=== PATIENT | female | born 1965 | race Caucasian/White ===

== ENCOUNTER 2017-09-29 20:13 | Inpatient (IN) | payer SELFPAY ==
[~2017-09-29] VITALS: Ht 154.9 cm; Wt 90.4 kg
[2017-09-29 20:40] VITALS: BP 171/85; PULSE 85; RESP 18; TEMP 98.9; O2SAT 100
[2017-09-29 20:56] VITALS: BP 138/80; PULSE 93; RESP 15; O2SAT 98
[2017-09-29] MEDS ORDERED: SODIUM CHLOR 0.9% 1000 ML INJ 1,000 ML IV ONE (21:05)
--- NOTE | 2017-09-29 21:13 | PD ---
HPI Chief Complaint: Pain: Acute or Chronic Time Seen by Provider: 20:55 Travel History International Travel<30 days: No Contact w/Intl Traveler<30days: No History of Present Illness HPI 52y female presents to the ED c/o right nare numbness, right neck pain, low back pain and numbness of the right lower extremity. After further discussion, patient states that she was cleaning her house about 1 week ago and developed nausea, right-sided headache, mouth numbness, twitching of the eyes, right neck and right arm pain. She decided to wait for 1 week because she thought the symptoms are resolved but is concerned because she continues to have these symptoms. Says that her right-sided neck and right lower lumbar paraspinous muscle area are painful, worse with movement. Says that she has some radiation of pain down the back of her right thigh as well. She denies fever, chills, cough, congestion, runny nose, chest pain, shortness of breath, abdominal pain. She has a history of thalassemia and achalasia but does not follow primary care physician or any specialist. Says she has no history of cardiac, pulmonary issues. Denies history of CVA or TIA. PFSH Past Medical History Blood Disorders: Yes (Thalassemia) Diminished Hearing: No Musculoskeletal: Yes (Achalasia) Tetanus Vaccination: Unknown Influenza Vaccination: No ?: Not Tubal Ligation: Yes Past Surgical History Surgical History: No Previous Surgery Social History Alcohol Use: No Tobacco Use: No Substance Use: No Allergies-Medications (Allergen,Severity, Reaction): Coded Allergies: No Known Allergies (Unverified , 09/29/17) Reported Meds & Prescriptions Reported Meds & Active Scripts Active No Active Prescriptions or Reported Medications Review of Systems Except as stated in HPI: all other systems reviewed are Neg Physical Exam Narrative GENERAL: WD, WN in NAD SKIN: Focused skin assessment warm/dry. HEAD: Atraumatic. Normocephalic. EYES: Pupils equal and round. No scleral icterus. No injection or drainage. ENT: No nasal bleeding or discharge. Mucous membranes pink and moist. NECK: Trachea midline. No JVD. CARDIOVASCULAR: Regular rate and rhythm. No murmur appreciated. RESPIRATORY: No accessory muscle use. Clear to auscultation. Breath sounds equal bilaterally. GASTROINTESTINAL: Abdomen soft, non-tender, nondistended. Hepatic and splenic margins not palpable. MUSCULOSKELETAL: No obvious deformities. No clubbing. No cyanosis. No edema. Right trapezius- TTP to musculature, TTP to right lumbar paraspinous muscles. No TTP to RLE. NEUROLOGICAL: Awake and alert. No obvious cranial nerve deficits. Motor grossly within normal limits, grade 5/5 upper and lower extremity strength. Normal speech. No pronator drift. PSYCHIATRIC: Appropriate mood and affect; insight and judgment normal. Data Data Last Documented VS Vital Signs Date Time Temp Pulse Resp B/P (MAP) Pulse Ox O2 Delivery O2 Flow Rate FiO2 09/29/17 21:43 98 Room Air 09/29/17 20:56 93 15 09/29/17 20:40 98.9 Orders Orders Complete Blood Count With Diff (09/29/17 21:05) Comprehensive Metabolic Panel (09/29/17 21:05) Prothrombin Time / Inr (Pt) (09/29/17 21:05) Act Partial Throm Time (Ptt) (09/29/17 21:05) Ct Brain W/O Iv Contrast(Rout) (09/29/17 21:05) Ecg Monitoring (09/29/17 21:05) Iv Access Insert/Monitor (09/29/17 21:05) Oximetry (09/29/17 21:05) Sodium Chloride 0.9% Flush (Ns Flush) (09/29/17 21:15) Ketorolac Inj (Toradol Inj) (09/29/17 21:15) Ondansetron Inj (Zofran Inj) (09/29/17 21:15) Sodium Chlor 0.9% 1000 Ml Inj (Ns 1000 M (09/29/17 21:05) Chest, Single Ap (09/29/17 ) Orphenadrine Inj (Norflex Inj) (09/29/17 21:15) Ondansetron Inj (Zofran Inj) (09/29/17 22:00) Ketorolac Inj (Toradol Inj) (09/29/17 22:00) Ct Thorax/ Chest W Iv Contrast (09/29/17 ) Admit Order (Ed Use Only) (09/29/17 23:53) Labs Laboratory Tests Test 09/29/17 21:41 White Blood Count 6.9 TH/MM3 Red Blood Count 5.28 MIL/MM3 Hemoglobin 11.9 GM/DL Hematocrit 38.7 % Mean Corpuscular Volume 73.3 FL Mean Corpuscular Hemoglobin 22.6 PG Mean Corpuscular Hemoglobin Concent 30.9 % Red Cell Distribution Width 14.0 % Platelet Count 223 TH/MM3 Mean Platelet Volume 9.5 FL Neutrophils (%) (Auto) 51.7 % Lymphocytes (%) (Auto) 32.9 % Monocytes (%) (Auto) 10.2 % Eosinophils (%) (Auto) 4.4 % Basophils (%) (Auto) 0.8 % Neutrophils # (Auto) 3.6 TH/MM3 Lymphocytes # (Auto) 2.3 TH/MM3 Monocytes # (Auto) 0.7 TH/MM3 Eosinophils # (Auto) 0.3 TH/MM3 Basophils # (Auto) 0.1 TH/MM3 CBC Comment DIFF FINAL Differential Comment Prothrombin Time 11.6 SEC Prothromb Time International Ratio 1.1 RATIO Activated Partial Thromboplast Time 26.3 SEC Blood Urea Nitrogen 13 MG/DL Creatinine 0.94 MG/DL Random Glucose 87 MG/DL Total Protein 7.2 GM/DL Albumin 3.4 GM/DL Calcium Level 8.8 MG/DL Alkaline Phosphatase 84 U/L Aspartate Amino Transf (AST/SGOT) 24 U/L Alanine Aminotransferase (ALT/SGPT) 26 U/L Total Bilirubin 0.2 MG/DL Sodium Level 141 MEQ/L Potassium Level 4.2 MEQ/L Chloride Level 108 MEQ/L Carbon Dioxide Level 25.8 MEQ/L Anion Gap 7 MEQ/L Estimat Glomerular Filtration Rate 63 ML/MIN MDM Medical Decision Making Medical Screen Exam Complete: Yes Emergency Medical Condition: Yes Differential Diagnosis TIA, CVA, sinusitis, muscle spasms, rhinorrhea Narrative Course 52y female presents to the ED c/o right nare numbness, right neck pain, low back pain and numbness of the right lower extremity. After further discussion, patient states that she was cleaning her house about 1 week ago and developed nausea, right-sided headache, mouth numbness, twitching of the eyes, right neck and right arm pain. She decided to wait for 1 week because she thought the symptoms are resolved but is concerned because she continues to have these symptoms. Says that her right-sided neck and right lower lumbar paraspinous muscle area are painful, worse with movement. Says that she has some radiation of pain down the back of her right thigh as well. She denies fever, chills, cough, congestion, runny nose, chest pain, shortness of breath, abdominal pain. She has a history of thalassemia and achalasia but does not follow primary care physician or any specialist. Says she has no history of cardiac, pulmonary issues. Denies history of CVA or TIA. Vital signs are stable. Physical exam findings most consistent with muscle spasms to the right cervical paraspinous muscles and right lumbar paraspinous muscles. No neuro deficits. Grade 5/5 upper lower extremity strength. Cranial nerves II through XII grossly intact. Patient given Toradol, Norflex and Zofran for apparent muscle spasms. Says her pain is improved. CT brain ordered as patient was complaining of some unusual numbness although bilateral. There is no acute process. There was an abnormal finding on the chest x-ray. Ordered CT of the chest with IV contrast. CT pending as of transfer care to Dr. Murphy. Please see his note for further discussion and disposal. Diagnosis Primary Impression: Muscle spasm Scripts No Active Prescriptions or Reported Meds Condition: Stable Bethany Khan Sep 29, 2017 21:13
[2017-09-29] MEDS ORDERED: ONDANSETRON HCL 4 MG/2 ML VIAL IM ONE (21:15)
[2017-09-29] MEDS ORDERED: KETOROLAC TROMETHAMINE 60 MG/2 ML (IM) VIAL IM ONE (21:15)
[2017-09-29] MEDS ORDERED: ORPHENADRINE INJ 60 MG/2 ML AMP IM ONE (21:15)
[2017-09-29] MEDS ORDERED: SODIUM CHLORIDE 0.9% FLUSH 10 ML FLUSH IVF PRN (21:15)
--- NOTE | 2017-09-29 21:31 | RADRPT ---
EXAM DATE/TIME: 09/29/2017 21:17 [facility] COMPARISON: No previous studies available for comparison. INDICATIONS : Right side facial twitching and numbness with headache. RADIATION DOSE: 40.17 CTDIvol (mGy) MEDICAL HISTORY : None SURGICAL HISTORY : None. ENCOUNTER: Initial ACUITY: 1 day PAIN SCALE: 5/10 LOCATION: cranial TECHNIQUE: Multiple contiguous axial images were obtained of the head. Using automated exposure control and adj ustment of the mA and/or kV according to patient size, radiation dose was kept as low as reasonably a chievable to obtain optimal diagnostic quality images. DICOM format image data is available electro nically for review and comparison. FINDINGS: CEREBRUM: The ventricles are normal for age. No evidence of midline shift, mass lesion, hemorrhage or acute in farction. No extra-axial fluid collections are seen. POSTERIOR FOSSA: The cerebellum and brainstem are intact. The 4th ventricle is midline. The cerebellopontine angle i s unremarkable. EXTRACRANIAL: There is mucoperiosteal thickening of the visualized ethmoid and maxillary sinuses, right much worse than left. SKULL: The calvaria is intact. No evidence of skull fracture. CONCLUSION: 1. No acute intracranial abnormality. 2. Right side predominant paranasal sinus disease. Thierry Bui MD on September 29, 2017 at 21:27 Board Certified Radiologist. This report was verified electronically.
--- NOTE | 2017-09-29 21:41 | RADRPT ---
EXAM DATE/TIME: 09/29/2017 21:20 [facility] COMPARISON: No previous studies available for comparison. INDICATIONS : Cough. MEDICAL HISTORY : None. SURGICAL HISTORY : None. ENCOUNTER: Initial ACUITY: 1 day PAIN SCORE: 0/10 LOCATION: Bilateral chest FINDINGS: Right perihilar mass like opacity measuring at least 13 cm in size noted. There is an apparent azygou s fissure. Left lung is clear. No pleural effusion or pneumothorax on either side. Heart size within normal limits. CONCLUSION: Large mass or area of consolidation on the right. CT of the chest is recommended, preferably with int ravenous contrast. Thierry Bui MD on September 29, 2017 at 21:37 Board Certified Radiologist. This report was verified electronically.
[2017-09-29 21:43] VITALS: O2SAT 98
[2017-09-29] MEDS ORDERED: KETOROLAC TROMETHAMINE 30 MG/ML (IVP) VIAL IV PUSH ONE (22:00)
[2017-09-29] MEDS ORDERED: ONDANSETRON HCL 4 MG/2 ML VIAL IV PUSH ONE (22:00)
[2017-09-29] MEDS ORDERED: IOHEXOL 350 MG/ML 10 ML VIAL (for RAD DIAG) IVCONTRAST ONE (22:10)
[2017-09-29 22:12] LABS: AUTOMATED NEUTROPHIL # 3.6 TH/MM3 (1.8-7.7); BASOPHIL # 0.1 TH/MM3 (0-0.2); BASOPHIL % 0.8 % (0.0-2.0); EOSINOPHIL # 0.3 TH/MM3 (0-0.4); EOSINOPHIL % 4.4 % (0.0-4.0); HEMATOCRIT 38.7 % (35.0-46.0); HEMOGLOBIN 11.9 GM/DL (11.6-15.3); LYMPH % 32.9 % (9.0-44.0); LYMPHOCYTE # 2.3 TH/MM3 (1.0-4.8); MEAN CELL VOLUME 73.3 FL (80.0-100.0); MEAN CORPUSCULAR HEMOGLOBIN 22.6 PG (27.0-34.0); MEAN CORPUSCULAR HGB CONC 30.9 % (32.0-36.0); MEAN PLATELET VOLUME 9.5 FL (7.0-11.0); MONO % 10.2 % (0.0-8.0); MONOCYTE # 0.7 TH/MM3 (0-0.9); NEUT % 51.7 % (16.0-70.0); PLATELET COUNT 223 TH/MM3 (150-450); RED BLOOD COUNT 5.28 MIL/MM3 (4.00-5.30); WHITE BLOOD COUNT 6.9 TH/MM3 (4.0-11.0)
[2017-09-29 22:24] LABS: INTERNATIONAL NORMALIZED RATIO 1.1 RATIO; PROTHROMBIN TIME - PATIENT 11.6 SEC (9.8-11.6)
[2017-09-29 22:33] LABS: ALKALINE PHOSPHATASE 84 U/L (45-117); TOTAL BILIRUBIN ADULT 0.2 MG/DL (0.2-1.0); TOTAL PROTEIN 7.2 GM/DL (6.4-8.2)
[2017-09-29 22:35] LABS: ALBUMIN 3.4 GM/DL (3.4-5.0); ALT (GPT) 26 U/L (10-53); AST (GOT) 24 U/L (15-37); BICARBONATE 25.8 MEQ/L (21.0-32.0); BLOOD UREA NITROGEN 13 MG/DL (7-18); CALCIUM 8.8 MG/DL (8.5-10.1); CHLORIDE 108 MEQ/L (98-107); CREATININE 0.94 MG/DL (0.50-1.00); GLOMERULAR FILTRATION RATE 63 ML/MIN (>89); GLUCOSE,RANDOM 87 MG/DL (74-106); SODIUM (NA) 141 MEQ/L (136-145)
--- NOTE | 2017-09-29 23:20 | PD ---
Physical Exam Date Seen by Provider: Sep 29, 2017 Time Seen by Provider: 23:18 Narrative The patient is a 52-year-old female was initially evaluated by the mid-level provider. Please refer to the initial history, physical, diagnostic evaluation , and treatment modality plan. Data Data Last Documented VS Vital Signs Date Time Temp Pulse Resp B/P (MAP) Pulse Ox O2 Delivery O2 Flow Rate FiO2 09/29/17 21:43 98 Room Air 09/29/17 20:56 93 15 09/29/17 20:40 98.9 Orders Orders Complete Blood Count With Diff (09/29/17 21:05) Comprehensive Metabolic Panel (09/29/17 21:05) Prothrombin Time / Inr (Pt) (09/29/17 21:05) Act Partial Throm Time (Ptt) (09/29/17 21:05) Ct Brain W/O Iv Contrast(Rout) (09/29/17 21:05) Ecg Monitoring (09/29/17 21:05) Iv Access Insert/Monitor (09/29/17 21:05) Oximetry (09/29/17 21:05) Sodium Chloride 0.9% Flush (Ns Flush) (09/29/17 21:15) Ketorolac Inj (Toradol Inj) (09/29/17 21:15) Ondansetron Inj (Zofran Inj) (09/29/17 21:15) Sodium Chlor 0.9% 1000 Ml Inj (Ns 1000 M (09/29/17 21:05) Chest, Single Ap (09/29/17 ) Orphenadrine Inj (Norflex Inj) (09/29/17 21:15) Ondansetron Inj (Zofran Inj) (09/29/17 22:00) Ketorolac Inj (Toradol Inj) (09/29/17 22:00) Ct Thorax/ Chest W Iv Contrast (09/29/17 ) Admit Order (Ed Use Only) (09/29/17 23:53) Labs Laboratory Tests Test 09/29/17 21:41 White Blood Count 6.9 TH/MM3 Red Blood Count 5.28 MIL/MM3 Hemoglobin 11.9 GM/DL Hematocrit 38.7 % Mean Corpuscular Volume 73.3 FL Mean Corpuscular Hemoglobin 22.6 PG Mean Corpuscular Hemoglobin Concent 30.9 % Red Cell Distribution Width 14.0 % Platelet Count 223 TH/MM3 Mean Platelet Volume 9.5 FL Neutrophils (%) (Auto) 51.7 % Lymphocytes (%) (Auto) 32.9 % Monocytes (%) (Auto) 10.2 % Eosinophils (%) (Auto) 4.4 % Basophils (%) (Auto) 0.8 % Neutrophils # (Auto) 3.6 TH/MM3 Lymphocytes # (Auto) 2.3 TH/MM3 Monocytes # (Auto) 0.7 TH/MM3 Eosinophils # (Auto) 0.3 TH/MM3 Basophils # (Auto) 0.1 TH/MM3 CBC Comment DIFF FINAL Differential Comment Prothrombin Time 11.6 SEC Prothromb Time International Ratio 1.1 RATIO Activated Partial Thromboplast Time 26.3 SEC Blood Urea Nitrogen 13 MG/DL Creatinine 0.94 MG/DL Random Glucose 87 MG/DL Total Protein 7.2 GM/DL Albumin 3.4 GM/DL Calcium Level 8.8 MG/DL Alkaline Phosphatase 84 U/L Aspartate Amino Transf (AST/SGOT) 24 U/L Alanine Aminotransferase (ALT/SGPT) 26 U/L Total Bilirubin 0.2 MG/DL Sodium Level 141 MEQ/L Potassium Level 4.2 MEQ/L Chloride Level 108 MEQ/L Carbon Dioxide Level 25.8 MEQ/L Anion Gap 7 MEQ/L Estimat Glomerular Filtration Rate 63 ML/MIN [facility] Medical Record Reviewed: Yes Supervised Visit with RAY: Yes Interpretation(s) Laboratory Tests Test 09/29/17 21:41 White Blood Count 6.9 TH/MM3 Red Blood Count 5.28 MIL/MM3 Hemoglobin 11.9 GM/DL Hematocrit 38.7 % Mean Corpuscular Volume 73.3 FL Mean Corpuscular Hemoglobin 22.6 PG Mean Corpuscular Hemoglobin Concent 30.9 % Red Cell Distribution Width 14.0 % Platelet Count 223 TH/MM3 Mean Platelet Volume 9.5 FL Neutrophils (%) (Auto) 51.7 % Lymphocytes (%) (Auto) 32.9 % Monocytes (%) (Auto) 10.2 % Eosinophils (%) (Auto) 4.4 % Basophils (%) (Auto) 0.8 % Neutrophils # (Auto) 3.6 TH/MM3 Lymphocytes # (Auto) 2.3 TH/MM3 Monocytes # (Auto) 0.7 TH/MM3 Eosinophils # (Auto) 0.3 TH/MM3 Basophils # (Auto) 0.1 TH/MM3 CBC Comment DIFF FINAL Differential Comment Prothrombin Time 11.6 SEC Prothromb Time International Ratio 1.1 RATIO Activated Partial Thromboplast Time 26.3 SEC Blood Urea Nitrogen 13 MG/DL Creatinine 0.94 MG/DL Random Glucose 87 MG/DL Total Protein 7.2 GM/DL Albumin 3.4 GM/DL Calcium Level 8.8 MG/DL Alkaline Phosphatase 84 U/L Aspartate Amino Transf (AST/SGOT) 24 U/L Alanine Aminotransferase (ALT/SGPT) 26 U/L Total Bilirubin 0.2 MG/DL Sodium Level 141 MEQ/L Potassium Level 4.2 MEQ/L Chloride Level 108 MEQ/L Carbon Dioxide Level 25.8 MEQ/L Anion Gap 7 MEQ/L Estimat Glomerular Filtration Rate 63 ML/MIN Last Impressions Head CT 09/29/172104 Signed Impressions: Service Date/Time: Friday, September 29, 2017 21:17 - CONCLUSION: 1. No acute intracranial abnormality. 2. Right side predominant paranasal sinus disease. Thierry Bui MD Chest X-Ray 09/29/17 0000 Signed Impressions: Service Date/Time: Friday, September 29, 2017 21:20 - CONCLUSION: Large mass or area of consolidation on the right. CT of the chest is recommended, preferably with intravenous contrast. Thierry Bui MD CT of the thorax reveals large hollow structure in the posterior mediastinum and medial right chest containing a mixture of gas and particulate matter probably representing a markedly distended esophagus. Possible mass at the level of the GE junction. Differential Diagnosis Differential diagnosis includes muscle spasm, hypocalcemia, hypercalcemia, hypokalemia, aerosol cleaning side effect, CVA, TIA, intracranial hemorrhage. Narrative Course The patient was initially labeled by the mid-level provider. Please refer to the initial history, physical, diagnostic evaluation, treatment modality plan. The patient was signed out at [address] of the thorax pending for questionable abnormality on chest x-ray concerning a possible mass in the right side of the chest. CT the brain was negative for any acute intracranial abnormalities, sinus disease was noted. Electrolyte evaluation is unremarkable. CT of the thorax reveals markedly distended esophagus with questionable GE mass , worrisome for possible obstruction. 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 She does complain of right- sided jaw and neck pain that radiates down the right lateral aspect of the back. She did have nausea and vomiting earlier today. She does note increasing difficulty swallowing foods, feels like there is food getting stuck in her throat. Therefore, patient will be 23 hour observation to medicine and may benefit from evaluation by gastroenterology for possible endoscopy. Physician Communication Physician Communication I discussed the patient with Dr. Hdz who agrees with 23 hour observation. Diagnosis Primary Impression: Obstruction of esophagus Admitting Information Admitting Physician Requests: Observation Scripts No Active Prescriptions or Reported Meds Condition: Stable Brock Murphy MD Sep 29, 2017 23:20
--- NOTE | 2017-09-29 23:39 | RADRPT ---
EXAM DATE/TIME: 09/29/2017 23:02 [facility] COMPARISON: CHEST SINGLE AP, September 29, 2017, 21:20. INDICATIONS : Abnormal chest x-ray. IV CONTRAST: 72 cc Omnipaque 350 (iohexol) IV RADIATION DOSE: 8.23 CTDIvol (mGy) MEDICAL HISTORY : None SURGICAL HISTORY : Tubal ligation. ENCOUNTER: Initial ACUITY: 1 day PAIN SCALE: 0/10 LOCATION: chest TECHNIQUE: Volumetric scanning of the chest was performed. Using automated exposure control and adjustment of t he mA and/or kV according to patient size, radiation dose was kept as low as reasonably achievable to obtain optimal diagnostic quality images. DICOM format image data is available electronically for review and comparison. Follow-up recommendations for detected pulmonary nodules are based at a minimum on nodule size and pa tient risk factors according to Fleischner Society Guidelines. FINDINGS: The examination was performed to characterize a large masslike opacity is seen in the right medial he mithorax on chest x-ray. There is a viscus structure which extends from the midline clavicular regio n down to the level of the GE junction which measures 19 cm in superior/inferior extent and 10.3 cm i n length. There is a mixture of gas and particulate matter within the lumen of this structure. The location and course suggests that this represents a markedly distended esophagus. The stomach appear s to be an orthotopic position. The region of the GE junction does not contain gas and cannot exclud e a mass in the region of the GE junction. The lungs are clear. No evidence of atelectasis. No evidence of mediastinal or hilar adenopathy. T he osseous structures are intact. CONCLUSION: Large hollow structure in the posterior mediastinum and medial right chest containing a mixture of ga s and particulate matter probably representing a markedly distended esophagus. Possible mass at the level of the GE junction. Speedy Baker MD on September 29, 2017 at 23:31 Board Certified Radiologist. This report was verified electronically.
[2017-09-30] VITALS (12 sets, daily range): BP systolic 106–140; BP diastolic 55–75; PULSE 59–78; RESP 12–18; TEMP 97.6–99.1; O2SAT 94–100
[2017-09-30] MEDS ORDERED: SODIUM CHLORIDE 0.9% FLUSH 10 ML FLUSH IV FLUSH PRN
[2017-09-30] MEDS ORDERED: MAGNESIUM HYDROXIDE SUSP 30 ML CUP PO PRN
[2017-09-30] MEDS ORDERED: MORPHINE SULFATE 2 MG/ML SYRINGE IV PUSH PRN ×2
[2017-09-30] MEDS ORDERED: LACTULOSE SYRUP 20 GM/30 ML CUP PO PRN
[2017-09-30] MEDS ORDERED: BISACODYL 10 MG SUPP RECTAL PRN
[2017-09-30] MEDS ORDERED: SENNOSIDES 8.6 MG TAB PO PRN
--- NOTE | 2017-09-30 01:13 | HHI.HP ---
[facility] No Primary Care Physician Admission Diagnosis Possible esophageal obstruction versus GE mass Diagnoses: (1) Esophageal dilatation Diagnosis: Principal (2) Intractable nausea and vomiting Diagnosis: Principal (3) HTN (hypertension) Diagnosis: Principal Travel History International Travel<30 Days: No Contact w/Intl Traveler <30 Da: No History of Present Illness This is a 52-year-old female with a PMH of Thalassemia and Achalasia who presented to ER with complaints of right-sided neck pain and right-sided chest wall pain for approx 1wk. Also notes associated nausea/vomiting. States she has been doing some house cleaning and thinks she may have inhaled chemicals which caused her nausea/vomiting. Pain has been intermittent, moderate to severe, 6-7/10, occasional radiation to back. Denies fever, chills, chest pain or SOB. On arrival, BP 171/85, HR 85, O2 sat 100% on RA, Afebrile. CBC essentially unremarkable. Chemistry unremarkable except for GFR 63. INR 1.1. CT Head with no acute findings. CXR with large mass or area of consolidation on the right, recommendation for CT. CT Chest with large hollow structure in posterior mediastinum and medial right chest containing mixture of gas and particulate matter probably representing markedly distended esophagus, possible mass at level of GE junction. Reports no h/o similar findings. States she has previous h/o achalasia, however no intervention. Does not follow w/ GI doc. Review of Systems Except as stated in HPI: all other systems reviewed are Neg ROS: 14 point review of systems otherwise negative. Past Family Social History Past Medical History PMH: Thalassemia and Achalasia Past Surgical History PAST SURGICAL HISTORY: None Allergies: Coded Allergies: No Known Allergies (Unverified , 09/29/17) Family History PAST FAMILY HISTORY: Reviewed. No h/o DM or CAD Social History PAST SOCIAL HISTORY: Negative for alcohol, tobacco or drugs Physical Exam Vital Signs Vital Signs Date Time Temp Pulse Resp B/P (MAP) Pulse Ox O2 Delivery O2 Flow Rate FiO2 09/30/17 00:28 78 18 140/67 (91) 98 Room Air 09/29/17 21:43 98 Room Air 09/29/17 20:56 93 15 138/80 (99) 98 Room Air 09/29/17 20:40 98.9 85 18 171/85 (113) 100 Physical Exam PE: GENERAL: Very pleasant middle-aged female in no acute distress. HEENT: PERRLA, EOMI. No scleral icterus or conjunctival pallor. No lid lag or facial droop. CARDIOVASCULAR: Regular rate and rhythm. No obvious murmurs to auscultation. No chest tenderness to palpation. RESPIRATORY: No obvious rhonchi or wheezing. Clear to auscultation. Breath sounds equal bilaterally. GASTROINTESTINAL: Abdomen soft, non-tender, nondistended. BS normal. MUSCULOSKELETAL: Extremities without clubbing, cyanosis, or edema. No obvious deformities. NEUROLOGICAL: Awake, alert and oriented x4. No focal neurologic deficits. Moving both upper and lower extremities spontaneously. Laboratory Laboratory Tests Test 09/29/17 21:41 White Blood Count 6.9 Red Blood Count 5.28 Hemoglobin 11.9 Hematocrit 38.7 Mean Corpuscular Volume 73.3 Mean Corpuscular Hemoglobin 22.6 Mean Corpuscular Hemoglobin Concent 30.9 Red Cell Distribution Width 14.0 Platelet Count 223 Mean Platelet Volume 9.5 Neutrophils (%) (Auto) 51.7 Lymphocytes (%) (Auto) 32.9 Monocytes (%) (Auto) 10.2 Eosinophils (%) (Auto) 4.4 Basophils (%) (Auto) 0.8 Neutrophils # (Auto) 3.6 Lymphocytes # (Auto) 2.3 Monocytes # (Auto) 0.7 Eosinophils # (Auto) 0.3 Basophils # (Auto) 0.1 CBC Comment DIFF FINAL Differential Comment Prothrombin Time 11.6 Prothromb Time International Ratio 1.1 Activated Partial Thromboplast Time 26.3 Blood Urea Nitrogen 13 Creatinine 0.94 Random Glucose 87 Total Protein 7.2 Albumin 3.4 Calcium Level 8.8 Alkaline Phosphatase 84 Aspartate Amino Transf (AST/SGOT) 24 Alanine Aminotransferase (ALT/SGPT) 26 Total Bilirubin 0.2 Sodium Level 141 Potassium Level 4.2 Chloride Level 108 Carbon Dioxide Level 25.8 Anion Gap 7 Estimat Glomerular Filtration Rate 63 Result Diagram: 09/29/17214009/29/172140 Caprini VTE Risk Assessment Caprini VTE Risk Assessment: No/Low Risk (score <= 1) Caprini Risk Assessment Model Point Value = 1 Point Value = 2 Point Value = 3 Point Value = 5 Age 41-60 Minor surgery BMI > 25 kg/m2 Swollen legs Varicose veins or History of unexplained or recurrent spontaneous Oral contraceptives or hormone replacement Sepsis (< 1 month) Serious lung disease, including pneumonia (< 1 month) Abnormal pulmonary function Acute myocardial infarction Congestive heart failure (< 1 month) History of inflammatory bowel disease Medical patient at bed rest Age 61-74 Arthroscopic surgery Major open surgery (> 45 min) Laparoscopic surgery (> 45 min) Malignancy Confined to bed (> 72 hours) Immobilizing plaster cast Central venous access Age >= 75 History of VTE Family history of VTE Factor V Leiden Prothrombin [id number] Lupus anticoagulant Anticardiolipin antibodies Elevated serum homocysteine Heparin-induced thrombocytopenia Other congenital or acquired thrombophilia Stroke (< 1 month) Elective arthroplasty Hip, pelvis, or leg fracture Acute spinal cord injury (< 1 month) Prophylaxis Regimen Total Risk Factor Score Risk Level Prophylaxis Regimen 0-1 Low Early ambulation 2 Moderate Order ONE of the following: *Sequential Compression Device (SCD) *Heparin 5000 units SQ BID 3-4 Higher Order ONE of the following medications: *Heparin 5000 units SQ TID *Enoxaparin/Lovenox 40 mg SQ daily (WT < 150 kg, CrCl > 30 mL/min) *Enoxaparin/Lovenox 30 mg SQ daily (WT < 150 kg, CrCl > 10-29 mL/min) *Enoxaparin/Lovenox 30 mg SQ BID (WT < 150 kg, CrCl > 30 mL/min) AND/OR *Sequential Compression Device (SCD) 5 or more Highest Order ONE of the following medications: *Heparin 5000 units SQ TID (Preferred with Epidurals) *Enoxaparin/Lovenox 40 mg SQ daily (WT < 150 kg, CrCl > 30 mL/min) *Enoxaparin/Lovenox 30 mg SQ daily (WT < 150 kg, CrCl > 10-29 mL/min) *Enoxaparin/Lovenox 30 mg SQ BID (WT < 150 kg, CrCl > 30 mL/min) AND *Sequential Compression Device (SCD) Assessment and Plan Problem List: (1) Esophageal dilatation ICD Code: K22.8 - Other specified diseases of esophagus (2) Intractable nausea and vomiting ICD Code: R11.2 - Nausea with vomiting, unspecified (3) HTN (hypertension) ICD Code: I10 - Essential (primary) hypertension Assessment and Plan A/P: 1. Esophageal Dilatation: c/o right-sided neck/chest wall pain w/ associated nausea, vomiting. CT Chest w/ large hollow structure in posterior mediastinum and medial right chest containing gas/particulate matter w/ markedly distended esophagus, possible mass at GE Junction, images reviewed by me. NPO, IVF, consult GI for further evaluation/EGD. 2. Intractable NV: secondary to above, continue analgesics/antiemetics as needed. IVF. 3. HTN: BP 170's on arrival, likely compounded by pain complaints, will monitor, antihypertensives as needed for BP >180 4. DVT Prophylaxis: SCD/Teds 5. Social work for d/c planning as needed. 6. Case discussed w/ ER physician at length, labs/records/imaging reviewed by me Karla Hdz MD Sep 30, 2017 01:13
[2017-09-30] MEDS: SODIUM CHLOR 0.9% 1000 ML INJ 1,000 ML IV SCH ×3 (02:04→23:53)
[2017-09-30 08:39] LABS: AUTOMATED NEUTROPHIL # 2.5 TH/MM3 (1.8-7.7); BASOPHIL # 0.1 TH/MM3 (0-0.2); EOSINOPHIL # 0.3 TH/MM3 (0-0.4); EOSINOPHIL % 5.5 % (0.0-4.0); HEMATOCRIT 37.2 % (35.0-46.0); HEMOGLOBIN 11.5 GM/DL (11.6-15.3); LYMPH % 30.7 % (9.0-44.0); LYMPHOCYTE # 1.5 TH/MM3 (1.0-4.8); MEAN CORPUSCULAR HEMOGLOBIN 22.8 PG (27.0-34.0); MEAN CORPUSCULAR HGB CONC 30.9 % (32.0-36.0); MEAN PLATELET VOLUME 9.6 FL (7.0-11.0); MONO % 11.7 % (0.0-8.0); MONOCYTE # 0.6 TH/MM3 (0-0.9); NEUT % 51.1 % (16.0-70.0); PLATELET COUNT 211 TH/MM3 (150-450); RED BLOOD COUNT 5.03 MIL/MM3 (4.00-5.30); RED CELL DISTRIBUTION WIDTH 14.1 % (11.6-17.2); WHITE BLOOD COUNT 4.9 TH/MM3 (4.0-11.0)
[2017-09-30] MEDS: SODIUM CHLORIDE 0.9% FLUSH 10 ML FLUSH IV FLUSH SCH ×2 (09:00→20:16)
[2017-09-30 09:18] LABS: ALBUMIN 2.9 GM/DL (3.4-5.0); ALKALINE PHOSPHATASE 73 U/L (45-117); ALT (GPT) 25 U/L (10-53); AST (GOT) 18 U/L (15-37); BICARBONATE 26.2 MEQ/L (21.0-32.0); BLOOD UREA NITROGEN 14 MG/DL (7-18); CHLORIDE 112 MEQ/L (98-107); CREATININE 0.82 MG/DL (0.50-1.00); GLOMERULAR FILTRATION RATE 73 ML/MIN (>89); GLUCOSE,RANDOM 96 MG/DL (74-106); SODIUM (NA) 144 MEQ/L (136-145); TOTAL BILIRUBIN ADULT 0.2 MG/DL (0.2-1.0); TOTAL PROTEIN 6.3 GM/DL (6.4-8.2)
[2017-09-30] MEDS: DOCUSATE SODIUM 50 MG/SENNA 8.6 MG TAB PO SCH ×2 (10:37→19:56)
[2017-09-30] MEDS ORDERED: traMADol HCL 50 MG TAB PO PRN (11:15)
[2017-09-30] MEDS ORDERED: ACETAMINOPHEN 325 MG TAB PO PRN (11:15)
[2017-09-30] MEDS ORDERED: CHLORHEXIDINE GLUCONATE 2 % 1 PACK (2 CLOTHS) TOPICAL PRN (11:30)
[2017-09-30] MEDS ORDERED: INSULIN HUMAN REGULAR 1,000 UNITS/10 ML VIAL SQ PRN (11:30)
[2017-09-30] MEDS ORDERED: SODIUM CHLORID 0.9% 500 ML IV PRN (11:30)
[2017-09-30] MEDS ORDERED: METOPROLOL TARTRATE 25 MG TAB PO PRN (11:30)
[2017-09-30] MEDS ORDERED: LACTATED RINGER'S 1000 ML IV PRN (11:30)
[2017-09-30] MEDS ORDERED: POVIDONE IODINE 5% (ANTISEPSIS KIT) 4 APPLICATIONS EACH NARE PRN (11:30)
--- NOTE | 2017-09-30 11:33 | HHI.PR ---
Subjective Remarks Follow up on patient with N/V, right sided facial numbness, right sided neck pain. Patient reports cleaning with chemicals this past weekend after moving into a new place and had several episodes of nausea, vomiting and right sided facial numbness/tingling. She denies any facial droop or slurred speech. She endorses right sided headache and right sided neck pain radiating down the right side of her back into the right leg. She reports tingling in the right upper extremity. She denies any vision changes but does report noticing significant swelling in the right eye Monday night that has since resolved. She denies having any difficulty closing the right eye. She continues to have decreased sensation on the right side of her face with tingling but reports it is improving. She reports 30yr hx of vomiting after meals due to dilated esophagus and states the N/V she had over the weekend was different. She denies any weakness in the arms or legs. She denies any bladder or bowel difficulties. She denies any recent illness, fever or chills. She denies any chest pain, palpitations, diaphoresis, abdominal pain, syncope/near syncope or shortness of breath. Objective Vitals Vital Signs Date Time Temp Pulse Resp B/P (MAP) Pulse Ox O2 Delivery O2 Flow Rate FiO2 09/30/17 08:00 97.6 61 16 121/75 (90) 95 09/30/17 04:24 98.2 61 17 106/59 (75) 95 09/30/17 01:16 98.3 71 18 110/55 (73) 94 09/30/17 01:03 09/30/17 00:28 78 18 140/67 (91) 98 Room Air 09/29/17 21:43 98 Room Air 09/29/17 20:56 93 15 138/80 (99) 98 Room Air 09/29/17 20:40 98.9 85 18 171/85 (113) 100 Result Diagram: 09/30/17 0745 09/30/17 0745 Imaging Last Impressions Head CT 09/29/176 Signed Impressions: Service Date/Time: Friday, September 29, 2017 21:17 - CONCLUSION: 1. No acute intracranial abnormality. 2. Right side predominant paranasal sinus disease. Thierry Bui MD Chest X-Ray 09/29/17 0000 Signed Impressions: Service Date/Time: Friday, September 29, 2017 21:20 - CONCLUSION: Large mass or area of consolidation on the right. CT of the chest is recommended, preferably with intravenous contrast. Thierry Bui MD Chest CT 09/29/17 0000 Signed Impressions: Service Date/Time: Friday, September 29, 2017 23:02 - CONCLUSION: Large hollow structure in the posterior mediastinum and medial right chest containing a mixture of gas and particulate matter probably representing a markedly distended esophagus. Possible mass at the level of the GE junction. Speedy Baker MD Objective Remarks GENERAL: Well-developed well-nourished male patient, in no acute distress. Awake and alert. Sitting up in hospital bed. Appears comfortable. SKIN: Warm and dry. HEAD: Atraumatic. Normocephalic. No temporal or scalp tenderness. No facial droop/asymmetry appreciated. EYES: Pupils equal round and reactive. Extraocular motions intact. No scleral icterus. No injection or drainage. No lid lag. ENT: Nose without bleeding or purulent drainage. Airway patent. MMM. No tenderness to palpation frontal or maxillary sinuses. NECK: Trachea midline. CARDIOVASCULAR: Regular rate and rhythm without murmurs, gallops, or rubs. RESPIRATORY: Clear to auscultation. Breath sounds equal bilaterally. No wheezes , rales, or rhonchi. GASTROINTESTINAL: Abdomen soft, non-tender, nondistended. No hepato-splenomegaly , or palpable masses. No guarding. MUSCULOSKELETAL: Extremities without clubbing, cyanosis, or edema. No calf tenderness. NEUROLOGICAL: Awake and alert. Cranial nerves II through XII grossly intact. Motor and sensory grossly within normal limits. No focal neurologic findings appreciated. Normal speech. PSYCHIATRIC: Appropriate mood and affect. Normal judgement and insight. Medications and IVs Current Medications Medications (Trade) Dose Ordered Sig/Keyur Route Start Time Stop Time Status Last Admin Sodium Chloride 1,000 ml @ 100 mls/hr Q10H IV 09/29/17 23:59 09/30/17 10:38 (NS Flush) 2 ml UNSCH PRN IV FLUSH 09/30/17 00:00 (NS Flush) 2 ml BID IV FLUSH 09/30/17 09:00 (Zofran Inj) 4 mg Q6H PRN IVP 09/30/17 00:00 (Morphine Inj) 1 mg Q3H PRN IV PUSH 09/30/17 00:00 (Morphine Inj) 2 mg Q3H PRN IV PUSH 09/30/17 00:00 (Mirian-Colace) 1 tab BID PO 09/30/17 09:00 09/30/17 10:37 (Milk Of Magnesia Liq) 30 ml Q12H PRN PO 09/30/17 00:00 (Senokot) 17.2 mg Q12H PRN PO 09/30/17 00:00 (Dulcolax Supp) 10 mg DAILY PRN RECTAL 09/30/17 00:00 (Lactulose Liq) 30 ml DAILY PRN PO 09/30/17 00:00 A/P Problem List: (1) Esophageal dilatation ICD Code: K22.8 - Other specified diseases of esophagus (2) Intractable nausea and vomiting ICD Code: R11.2 - Nausea with vomiting, unspecified (3) HTN (hypertension) ICD Code: I10 - Essential (primary) hypertension Assessment and Plan Esophageal Dilatation: c/o right-sided neck/chest wall pain w/ associated nausea, vomiting. CT Chest w/ large hollow structure in posterior mediastinum and medial right chest containing gas/particulate matter w/ markedly distended esophagus, possible mass at GE Junction. -Keep patient NPO -IVF -GI consulted, plans for EGD later today -IV Zofran prn Right sided facial numbness/tingling, RUE tingling, headache, difficulty recalling words. CT head shows no acute intracranial abnormality, right side paranasal sinus disease. Concern for TIA/CVA -Consult Neurology, appreciate assistance -obtain carotid US -neuro checks -monitor on telemetry -obtain HgbA1c, TSH level and lipid profile Right neck and low back pain, suspect secondary to increased activity with recent move, cleaning Suspected cervical and lumbar radiculopathy -Tylenol prn mild pain and Tramadol prn mod/severe pain -trial Lidoderm patch -K thermia pad HTN: BP 170's on arrival, likely compounded by pain complaints No reported hx of hypertension BP much improved today -continue to monitor BP and will initiate treatment as indicated -clonidine prn with parameters DVT Prophylaxis: SCD/Teds Niya Becker Sep 30, 2017 11:33
[2017-09-30] MEDS ORDERED: PROPOFOL 200 MG/20 ML AMP IV ONE (12:00)
[2017-09-30] MEDS ORDERED: SUCCINYLCHOLINE CHLORIDE 100 MG/5 ML SYRINGE IV PUSH ONE (12:00)
[2017-09-30] MEDS ORDERED: LIDOCAINE HCL 1% PF 5 ML SYRINGE OTHER ONE (12:00)
[2017-09-30 12:38] LABS: CHOLESTEROL 130 MG/DL (120-200); TRIGLYCERIDES 83 MG/DL (42-150)
[2017-09-30 12:47] LABS: CHOLESTEROL/ HDL RATIO 3.43 RATIO; HDL CHOLESTEROL 37.8 MG/DL (40.0-60.0); LDL CHOLESTEROL 76 MG/DL (0-99)
[2017-09-30] MEDS ORDERED: ACETAMINOPHEN 1000 MG/100 ML 65 ML IV ONE (13:00)
--- NOTE | 2017-09-30 13:39 | PD.CONS ---
HPI History of Present Illness This is a 52 year old female who is been in her usual state of health up until . She came to the emergency room with right-sided neck pain and right- sided chest wall pain which had worsened over the past week. She did note some nausea and vomiting but has been struggling with this for approximately 30 years. Patient notes dysphasia and possible esophageal strictures approximately 30 years ago in the [facility]. Patient states she had 2 EGDs and thinks that she was dilated back during that time but no further EGD and no colonoscopy ever done. Currently, patient does note that food gets stuck every time she eats. Aggregating factors are food and any medication. She states that she attempts to swallow but a good bit of the time she vomits back up what she is trying to consume. No relieving factors. Patient denies any acute abdominal pain no diarrhea no constipation no obvious rectal bleeding. Chest x- ray was done in the ER setting which showed large mass or area of consolidation on the right side CT of the chest; CT of the chest was recommended. Findings include large hollow structure in posterior mediastinum and medial right chest containing mixture of gas and particle matter probably representing markedly distended esophagus and possible mass at the level of the GE GE junction. Patient has had no further GI workup after those initial EGDs were done approximately 30 years ago she does have a medical history of Thalassemia and Achalasia. PFSH Past Medical History PMH: Thalassemia and Achalasia Past Surgical History PAST SURGICAL HISTORY: EGD 2 Coded Allergies: No Known Allergies (Unverified , 09/29/17) Medications Administered Medications Medications (Trade) Dose Ordered Sig/Keyur Route PRN Reason Start Time Stop Time Status Last Admin Dose Admin Sodium Chloride 1,000 ml @ 100 mls/hr Q10H IV 09/29/17 23:59 09/30/17 10:38 Senna/Docusate Sodium (Mirian-Colace) 1 tab BID PO 09/30/17 09:00 09/30/17 10:37 Family History PAST FAMILY HISTORY: Reviewed. No h/o DM or CAD No family history of colon cancer Social History PAST SOCIAL HISTORY: Negative for alcohol, tobacco or drugs Review of Systems Gastrointestinal: COMPLAINS OF: Nausea, Vomiting, Difficulty Swallowing GI Exam Vitals I&O Vital Signs Date Time Temp Pulse Resp B/P (MAP) Pulse Ox O2 Delivery O2 Flow Rate FiO2 4/28/18 12:00 98.1 61 16 114/62 (79) 96 09/30/17 08:00 97.6 61 16 121/75 (90) 95 09/30/17 04:24 98.2 61 17 106/59 (75) 95 09/30/17 01:16 98.3 71 18 110/55 (73) 94 09/30/17 01:03 09/30/17 00:28 78 18 140/67 (91) 98 Room Air 09/29/17 21:43 98 Room Air 09/29/17 20:56 93 15 138/80 (99) 98 Room Air 09/29/17 20:40 98.9 85 18 171/85 (113) 100 Imaging Last Impressions Head CT 09/29/172104 Signed Impressions: Service Date/Time: Friday, September 29, 2017 21:17 - CONCLUSION: 1. No acute intracranial abnormality. 2. Right side predominant paranasal sinus disease. Thierry Bui MD Chest X-Ray 09/29/17 0000 Signed Impressions: Service Date/Time: Friday, September 29, 2017 21:20 - CONCLUSION: Large mass or area of consolidation on the right. CT of the chest is recommended, preferably with intravenous contrast. Thierry Bui MD Chest CT 09/29/17 0000 Signed Impressions: Service Date/Time: Friday, September 29, 2017 23:02 - CONCLUSION: Large hollow structure in the posterior mediastinum and medial right chest containing a mixture of gas and particulate matter probably representing a markedly distended esophagus. Possible mass at the level of the GE junction. Speedy Baker MD Laboratory Test 09/29/17 21:41 09/30/17 07:45 White Blood Count 6.9 TH/MM3 4.9 TH/MM3 Red Blood Count 5.28 MIL/MM3 5.03 MIL/MM3 Hemoglobin 11.9 GM/DL 11.5 GM/DL Hematocrit 38.7 % 37.2 % Mean Corpuscular Volume 73.3 FL 74.0 FL Mean Corpuscular Hemoglobin 22.6 PG 22.8 PG Mean Corpuscular Hemoglobin Concent 30.9 % 30.9 % Red Cell Distribution Width 14.0 % 14.1 % Platelet Count 223 TH/MM3 211 TH/MM3 Mean Platelet Volume 9.5 FL 9.6 FL Neutrophils (%) (Auto) 51.7 % 51.1 % Lymphocytes (%) (Auto) 32.9 % 30.7 % Monocytes (%) (Auto) 10.2 % 11.7 % Eosinophils (%) (Auto) 4.4 % 5.5 % Basophils (%) (Auto) 0.8 % 1.0 % Neutrophils # (Auto) 3.6 TH/MM3 2.5 TH/MM3 Lymphocytes # (Auto) 2.3 TH/MM3 1.5 TH/MM3 Monocytes # (Auto) 0.7 TH/MM3 0.6 TH/MM3 Eosinophils # (Auto) 0.3 TH/MM3 0.3 TH/MM3 Basophils # (Auto) 0.1 TH/MM3 0.1 TH/MM3 CBC Comment DIFF FINAL DIFF FINAL Differential Comment Prothrombin Time 11.6 SEC Prothromb Time International Ratio 1.1 RATIO Activated Partial Thromboplast Time 26.3 SEC Blood Urea Nitrogen 13 MG/DL 14 MG/DL Creatinine 0.94 MG/DL 0.82 MG/DL Random Glucose 87 MG/DL 96 MG/DL Total Protein 7.2 GM/DL 6.3 GM/DL Albumin 3.4 GM/DL 2.9 GM/DL Calcium Level 8.8 MG/DL 8.0 MG/DL Alkaline Phosphatase 84 U/L 73 U/L Aspartate Amino Transf (AST/SGOT) 24 U/L 18 U/L Alanine Aminotransferase (ALT/SGPT) 26 U/L 25 U/L Total Bilirubin 0.2 MG/DL 0.2 MG/DL Sodium Level 141 MEQ/L 144 MEQ/L Potassium Level 4.2 MEQ/L 4.2 MEQ/L Chloride Level 108 MEQ/L 112 MEQ/L Carbon Dioxide Level 25.8 MEQ/L 26.2 MEQ/L Anion Gap 7 MEQ/L 6 MEQ/L Estimat Glomerular Filtration Rate 63 ML/MIN 73 ML/MIN Triglycerides Level 83 MG/DL Cholesterol Level 130 MG/DL LDL Cholesterol 76 MG/DL HDL Cholesterol 37.8 MG/DL Cholesterol/HDL Ratio 3.43 RATIO Thyroid Stimulating Hormone 3rd Gen 2.120 uIU/ML Physical Examination HEENT: Pupils round and reactive to light; normocephalic; atraumatic; no jaundice. NECK: Neck, mild edema CHEST: No shortness of breath for now CARDIAC: Regular rate and rhythm ABDOMEN: Round, soft, nondistended, nontender; bowel sounds are present in all four quadrants. EXTREMITIES: No clubbing, cyanosis, or edema. SKIN: Normal; no rash; no jaundice. [employer] MACHINE: No focal deficits; alert and oriented times three. Mild anxiety over current condition Assessment and Plan Assessment: (1) Obstruction of esophagus ICD Codes: K22.2 - Esophageal obstruction Status: Acute (2) Esophageal dilatation ICD Codes: K22.8 - Other specified diseases of esophagus (3) Intractable nausea and vomiting ICD Codes: R11.2 - Nausea with vomiting, unspecified Plan 52-year-old female who has had aggregating factors of dysphasia food getting stuck, nausea vomiting for the past 30 years. Patient initially had 2 EGDs with possible dilatation she thinks, no previous colonoscopy. Patient states she is drinking fluids constantly trying to clear any residue from her esophagus. Chest CT showed a large hollow structure in the posterior mediastinum and medial right chest containing a mixture of gas and particle matter probably representing markedly dilated esophagus possible mass at the level of the GE junction. hemoglobin 11.5 , PT/INR 1.1 Plan Consent for EGD today to evaluate dysphasia and abnormal CT scan involving the esophagus Monitor lab N.p.o. for now Further recommendations will be based on findings and symptom management After EGD today , orders include upper GI series and barium swallow Patient was seen per myself and Dr. Muhammad, note was written on his behalf Angélica Billy Sep 30, 2017 13:39
[2017-09-30] MEDS ORDERED: PROPOFOL 1000 MG/100 ML INJ 100 ML ONE ×2 (13:53→15:26)
--- NOTE | 2017-09-30 14:11 | EKG ---
Date Performed: 09/30/2017 Time Performed: 11:22:23 PTAGE: 52 years EKG: Sinus rhythm NORMAL ECG INTERPRETATION BASED ON A DEFAULT AGE OF 40 YEARS NO PREVIOUS TRACING DOCTOR: Osei Becker Interpretating Date/Time 09/30/2017 14:09:31
[2017-09-30] MEDS ORDERED: *morphine SULFATE 4 MG/ML PERIprocedure ONLY ONE (14:22)
--- NOTE | 2017-09-30 14:59 | RADRPT ---
EXAM DATE/TIME: 09/30/2017 15:05 [facility] COMPARISON: CT THORAX W CONTRAST, September 29, 2017, 23:02. CHEST SINGLE AP, September 29, 2017, 21:20. INDICATIONS : Intraoperative aspiration. MEDICAL HISTORY : None. SURGICAL HISTORY : Tubal ligation. ENCOUNTER: Initial ACUITY: 1 day PAIN SCORE: Non-responsive. LOCATION: Bilateral chest FINDINGS: The patient is intubated with the tip of the ET tube 2 cm from the marcial. The heart size is normal. There is increased density seen throughout the right mid and lower chest. The left lung is clear. CONCLUSION: Increased density at the mid and lower right chest likely related to a very distended esophagus based on the recent CT examination. Thierry Gonzales MD on September 30, 2017 at 14:54 Board Certified Radiologist. This report was verified electronically.
--- NOTE | 2017-09-30 15:41 | PD.CONS ---
HPI Service Critical Care Medicine Consult Requested By Anesthesia service Reason for Consult Ventilator management Primary Care Physician No Primary Care Physician History of Present Illness 52-year-old lady with history of thalassemia and achalasia was admitted yesterday with right-sided neck pain and right-sided chest pain that started approximately 1 week ago. In addition patient also complaining of nausea and vomiting. Information is obtained entirely from chart since patient is intubated and there is no family available at bedside. On routine chest x-ray patient was found to have a large area of consolidation over the right side she underwent a CT chest that showed a large hollow structure in posterior mediastinum and medial right chest containing mixture of gas and particulate matter probably representing markedly distended esophagus. Patient was seen by gastroenterology service and she underwent EGD this morning. Further information was obtained from anesthesia service. The procedure was started under MAC anesthesia upon introduction of the scope in the esophagus she was found to have a megaesophagus with retained food contents. Scope was withdrawn to allow endotracheal intubation and upon withdrawal patient started coughing and aspirated. Patient was immediately intubated and the procedure was restarted. Post procedure patient remained intubated therefore CCM service was consulted for ventilator management and ICU admission. Patient was seen immediately in PACU, intubated and sedated, FiO2 of 0.4, PEEP of 5, O2 sat 100% . Case was discussed with both anesthesia and gastroenterology services. No family is present at bedside. Review of Systems ROS Limitations: Intubated Past Family Social History Allergies: Coded Allergies: No Known Allergies (Unverified , 09/29/17) Past Medical History Achalasia and thalassemia Past Surgical History Unobtainable, patient is intubated Reported Medications Reported Meds & Active Scripts Active No Active Prescriptions or Reported Medications Active Ordered Medications Current Medications Medications (Trade) Dose Ordered Sig/Keyur Route Start Time Stop Time Status Last Admin Sodium Chloride 1,000 ml @ 100 mls/hr Q10H IV 09/29/17 23:59 09/30/17 10:38 (NS Flush) 2 ml UNSCH PRN IV FLUSH 09/30/17 00:00 (NS Flush) 2 ml BID IV FLUSH 09/30/17 09:00 (Zofran Inj) 4 mg Q6H PRN IVP 09/30/17 00:00 (Morphine Inj) 1 mg Q3H PRN IV PUSH 09/30/17 00:00 (Morphine Inj) 2 mg Q3H PRN IV PUSH 09/30/17 00:00 (Mirian-Colace) 1 tab BID PO 09/30/17 09:00 09/30/17 10:37 (Milk Of Magnesia Liq) 30 ml Q12H PRN PO 09/30/17 00:00 (Senokot) 17.2 mg Q12H PRN PO 09/30/17 00:00 (Dulcolax Supp) 10 mg DAILY PRN RECTAL 09/30/17 00:00 (Lactulose Liq) 30 ml DAILY PRN PO 09/30/17 00:00 (Tylenol) 650 mg Q4H PRN PO 09/30/17 11:15 (Ultram) 50 mg Q6H PRN PO 09/30/17 11:15 (Lidoderm 5% Patch.12 Hr) 1 patch DAILY T-DERMAL 10/01/17 09:00 Miscellaneous Information 1 Q24H T-DERMAL 10/01/17 21:00 (Catapres) 0.1 mg Q6H PRN PO 09/30/17 11:30 Lactated Ringer's 1,000 ml @ 30 mls/hr Q24H PRN IV 09/30/17 11:30 10/03/17 11:29 Sodium Chloride 500 ml @ 30 mls/hr [id number] PRN IV 09/30/17 11:30 10/03/17 11:29 (Lopressor) 25 mg HELMET HAT PUNCHER PRN PO 09/30/17 11:30 10/03/17 11:29 (Betadine 5% Antisepsis Kit) 1 applic HELMET HAT PUNCHER PRN EACH NARE 09/30/17 11:30 10/03/17 11:29 (Chlorhexidine 2% Cloth) 3 pack HELMET HAT PUNCHER PRN TOPICAL 09/30/17 11:30 10/03/17 11:29 (NovoLIN R INJ) See Protocol Table ... HELMET HAT PUNCHER PRN SQ 09/30/17 11:30 10/03/17 11:29 (Peridex 0.12% Liq) 15 ml BID@08,20 MT 09/30/17 20:00 UNV Fentanyl Citrate 250 ml TITRATE PRN IV 09/30/17 15:30 UNV (Duoneb Neb) 1 ampule Q6HR NEB NEB 09/30/17 16:00 UNV Ampicillin Sodium/ Sulbactam Sodium 3 gm/Sodium Chloride 100 ml @ 200 mls/hr Q6H IV 09/30/17 15:45 UNV Family History Unobtainable, patient is intubated Social History Unobtainable, per chart patient denied tobacco, alcohol, drugs Physical Exam Vital Signs Vital Signs Date Time Temp Pulse Resp B/P (MAP) Pulse Ox O2 Delivery O2 Flow Rate FiO2 09/30/17 13:50 100 40 09/30/17 12:00 98.1 61 16 114/62 (79) 96 09/30/17 08:00 97.6 61 16 121/75 (90) 95 09/30/17 04:24 98.2 61 17 106/59 (75) 95 09/30/17 01:16 98.3 71 18 110/55 (73) 94 09/30/17 01:03 09/30/17 00:28 78 18 140/67 (91) 98 Room Air 09/29/17 21:43 98 Room Air 09/29/17 20:56 93 15 138/80 (99) 98 Room Air 09/29/17 20:40 98.9 85 18 171/85 (113) 100 Physical Exam General - middle-aged lady, intubated and sedated HEENT - pupils equal, reactive, sclerae anicteric, neck supple, no nuchal rigidity, neck veins not distended, no carotid bruit, orally intubated CV - regular S1, S2, no murmurs Chest - clear b/l, good air entry, no wheezes Abdomen - soft, slightly distended, non-tender, BS present, no hepatomegaly, no splenomegaly Skin - no rashes, no cyanosis appreciated Extremities - warm and well perfused, no edema, + peripheral pulses, no clubbing Neuro - intubated, sedated, grimaces and withdraws to pain, spontaneously moves all 4 extremities Laboratory Laboratory Tests Test 09/29/17 21:41 09/30/17 07:45 09/30/17 15:10 White Blood Count 6.9 4.9 Red Blood Count 5.28 5.03 Hemoglobin 11.9 11.5 Hematocrit 38.7 37.2 Mean Corpuscular Volume 73.3 74.0 Mean Corpuscular Hemoglobin 22.6 22.8 Mean Corpuscular Hemoglobin Concent 30.9 30.9 Red Cell Distribution Width 14.0 14.1 Platelet Count 223 211 Mean Platelet Volume 9.5 9.6 Neutrophils (%) (Auto) 51.7 51.1 Lymphocytes (%) (Auto) 32.9 30.7 Monocytes (%) (Auto) 10.2 11.7 Eosinophils (%) (Auto) 4.4 5.5 Basophils (%) (Auto) 0.8 1.0 Neutrophils # (Auto) 3.6 2.5 Lymphocytes # (Auto) 2.3 1.5 Monocytes # (Auto) 0.7 0.6 Eosinophils # (Auto) 0.3 0.3 Basophils # (Auto) 0.1 0.1 CBC Comment DIFF FINAL DIFF FINAL Differential Comment Prothrombin Time 11.6 Prothromb Time International Ratio 1.1 Activated Partial Thromboplast Time 26.3 Blood Urea Nitrogen 13 14 Creatinine 0.94 0.82 Random Glucose 87 96 Total Protein 7.2 6.3 Albumin 3.4 2.9 Calcium Level 8.8 8.0 Alkaline Phosphatase 84 73 Aspartate Amino Transf (AST/SGOT) 24 18 Alanine Aminotransferase (ALT/SGPT) 26 25 Total Bilirubin 0.2 0.2 Sodium Level 141 144 Potassium Level 4.2 4.2 Chloride Level 108 112 Carbon Dioxide Level 25.8 26.2 Anion Gap 7 6 Estimat Glomerular Filtration Rate 63 73 Triglycerides Level 83 Cholesterol Level 130 LDL Cholesterol 76 HDL Cholesterol 37.8 Cholesterol/HDL Ratio 3.43 Thyroid Stimulating Hormone 3rd Gen 2.120 Blood Gas Puncture Site RT RADIAL Blood Gas Patient Temperature 98.6 Blood Gas HCO3 24 Blood Gas Base Excess 0.2 Blood Gas Oxygen Saturation 94 Arterial Blood pH 7.46 Arterial Blood Partial Pressure CO2 34 Arterial Blood Partial Pressure O2 88 Arterial Blood Oxygen Content 14.5 Arterial Blood Carboxyhemoglobin 1.1 Arterial Blood Methemoglobin 1.6 Blood Gas Hemoglobin 10.8 Oxygen Delivery Device VENTILATOR Blood Gas Ventilator Setting A/C 500/12/5PEEP Blood Gas Inspired Oxygen 40 Result Diagram: 09/30/17 0745 09/30/17 0745 Assessment and Plan Assessment and Plan 1. Achalasia with megaesophagus and retained food contents status post EGD 2. Acute respiratory insufficiency 3. Possible aspiration pneumonia 4. History of thalassemia 1. Continue PRVC mode of ventilation at current vent settings. PIP is 20, patient is synchronized with the ventilator, no auto PEEP 2. Vent bundle and bronchodilators 3. Sedation with propofol. We will add fentanyl if needed 4. Discussed with gastroenterology, no OG or NG tube to be placed. We will add Reglan 5. Send sputum culture and start Unasyn due to aspiration of old food content sitting in a an environment favorable for bacterial growth 6. N.p.o. 7. GI and DVT prophylaxis My concern is that when we will attempt to extubate the patient, she still remains at extremely high risk for vomiting and aspiration. I discussed my concern with GI and I also discussed regarding repeating EGD and attempting to suction the esophageal content. If no plan to repeat EGD we will repeat a CT chest to reevaluate the esophagus tomorrow. No family present at bedside. Iglesia Hester MD Sep 30, 2017 15:41
[2017-09-30] MEDS: fentaNYL DRIP 250 ML IV PRN (15:46)
[2017-09-30] MEDS: AMPICILLIN-SULBACTAM INJ 3 GM in SODIUM CHLORIDE 0.9% INJ 100 ML IV SCH ×2 (16:00→20:20)
[2017-09-30] MEDS: FAMOTIDINE 20 MG/2 ML VIAL IV PUSH SCH (16:00)
[2017-09-30] MEDS: METOCLOPRAMIDE HCL 10 MG/2 ML VIAL IM SCH ×2 (16:00→20:20)
[2017-09-30] MEDS ORDERED: PROPOFOL 500 MG/50 ML INJ 50 ML ONE (19:45)
[2017-09-30] MEDS ORDERED: PROPOFOL 500 MG/50 ML INJ 50 ML IV ONE (19:45)
[2017-09-30] MEDS: CHLORHEXIDINE 0.12% (ORAL KIT) 15 ML CUP MT SCH (20:21)
[2017-09-30] MEDS: RESP: ALBUTEROL 2.5 MG/IPRATROPIUM 0.5 MG NEB (SCH) NEB (21:03)
[2017-09-30] MEDS: PROPOFOL 1000 MG/100 ML IV PRN (22:02)
--- NOTE | 2017-09-30 23:24 | RADRPT ---
EXAM DATE/TIME: 09/30/2017 22:29 [facility] COMPARISON: No previous studies available for comparison. INDICATIONS : Transient ischemic attack. MEDICAL HISTORY : Sleep apnea. Achalasia. SURGICAL HISTORY : Tubal ligation. ENCOUNTER: Initial ACUITY: 1 day PAIN SCORE: Nonresponsive. LOCATION: Bilateral neck PEAK SYSTOLIC VELOCITIES (cm/sec): ICA/CCA RATIO: Right: 1.00 Left: 1.03 ICA: Right: 76 Left: 80 CCA: Right: 76 Left: 78 ECA: Right: 72 Left: Not visualized VERTEBRAL: Right: 47 antegrade Left: 47 antegrade Elevated flow velocities and ICA/CCA ratios have been found to correlate with increased degrees of vessel stenosis, calculated as percentage of diameter relative to a normal segment of distal ICA/CCA FINDINGS: RIGHT CAROTID: No significant stenosis is visualized. The waveforms are within normal limits. LEFT CAROTID: No significant stenosis is visualized. The waveforms are within normal limits. VERTEBRAL ARTERIES: Antegrade flow is seen in both vertebral arteries. MISCELLANEOUS: None. CONCLUSION: Normal hemodynamic profile bilateral carotids. The Speedy Baker MD on September 30, 2017 at 23:21 Board Certified Radiologist. This report was verified electronically.
[2017-10-01] VITALS (19 sets, daily range): BP systolic 85–118; BP diastolic 52–66; PULSE 55–92; RESP 12–24; TEMP 98.4–100.1; O2SAT 98–100
[2017-10-01] MEDS: PROPOFOL 1000 MG/100 ML IV PRN ×4 (01:59→21:20)
[2017-10-01] MEDS: RESP: ALBUTEROL 2.5 MG/IPRATROPIUM 0.5 MG NEB (SCH) NEB ×4 (03:16→21:09)
[2017-10-01 04:34] LABS: AUTOMATED NEUTROPHIL # 5.2 TH/MM3 (1.8-7.7); BASOPHIL % 0.4 % (0.0-2.0); EOSINOPHIL # 0.2 TH/MM3 (0-0.4); EOSINOPHIL % 2.9 % (0.0-4.0); HEMATOCRIT 33.9 % (35.0-46.0); HEMOGLOBIN 10.6 GM/DL (11.6-15.3); LYMPH % 20.9 % (9.0-44.0); LYMPHOCYTE # 1.6 TH/MM3 (1.0-4.8); MEAN CELL VOLUME 72.6 FL (80.0-100.0); MEAN CORPUSCULAR HEMOGLOBIN 22.7 PG (27.0-34.0); MEAN CORPUSCULAR HGB CONC 31.3 % (32.0-36.0); MEAN PLATELET VOLUME 9.4 FL (7.0-11.0); MONOCYTE # 0.7 TH/MM3 (0-0.9); NEUT % 66.8 % (16.0-70.0); PLATELET COUNT 184 TH/MM3 (150-450); RED BLOOD COUNT 4.67 MIL/MM3 (4.00-5.30); RED CELL DISTRIBUTION WIDTH 14.1 % (11.6-17.2); WHITE BLOOD COUNT 7.8 TH/MM3 (4.0-11.0)
[2017-10-01 04:52] LABS: ALBUMIN 2.9 GM/DL (3.4-5.0); ALT (GPT) 19 U/L (10-53); AST (GOT) 15 U/L (15-37); BICARBONATE 24.3 MEQ/L (21.0-32.0); BLOOD UREA NITROGEN 10 MG/DL (7-18); CALCIUM 7.7 MG/DL (8.5-10.1); CHLORIDE 111 MEQ/L (98-107); CREATININE 0.97 MG/DL (0.50-1.00); GLOMERULAR FILTRATION RATE 60 ML/MIN (>89); GLUCOSE,RANDOM 89 MG/DL (74-106); MAGNESIUM 1.8 MG/DL (1.5-2.5); SODIUM (NA) 144 MEQ/L (136-145)
[2017-10-01 04:55] LABS: ALKALINE PHOSPHATASE 74 U/L (45-117); TOTAL BILIRUBIN ADULT 0.2 MG/DL (0.2-1.0)
[2017-10-01] MEDS: METOCLOPRAMIDE HCL 10 MG/2 ML VIAL IM SCH ×3 (05:24→21:19)
[2017-10-01] MEDS: FAMOTIDINE 20 MG/2 ML VIAL IV PUSH SCH ×2 (05:25→14:30)
[2017-10-01] MEDS: AMPICILLIN-SULBACTAM INJ 3 GM in SODIUM CHLORIDE 0.9% INJ 100 ML IV SCH ×4 (05:26→21:19)
[2017-10-01] MEDS: SODIUM CHLOR 0.9% 1000 ML INJ 1,000 ML IV SCH ×3 (05:34→21:19)
--- NOTE | 2017-10-01 05:58 | RADRPT ---
EXAM DATE/TIME: 10/01/2017 05:05 [facility] COMPARISON: CHEST SINGLE AP, September 30, 2017, 15:05. INDICATIONS : Shortness of breath, possible pulmonary disease. MEDICAL HISTORY : None. SURGICAL HISTORY : Tubal ligation. ENCOUNTER: Subsequent ACUITY: 2 days PAIN SCORE: Non-responsive. LOCATION: Bilateral chest FINDINGS: ET tube tip in good position. Stable right chest mass like density, previously shown to represent a markedly distended esophagus. Interval development of lobar consolidation in the left lower lung wit h air bronchograms and complete loss of delineation of the left hemidiaphragm CONCLUSION: Interval development of left lower lobe consolidation. Speedy Baker MD on October 01, 2017 at 5:54 Board Certified Radiologist. This report was verified electronically.
[2017-10-01] MEDS: fentaNYL DRIP 250 ML IV PRN ×2 (08:28→22:00)
[2017-10-01] MEDS: LIDOCAINE HCL 5% PATCH T-DERMAL SCH (08:30)
[2017-10-01] MEDS: DOCUSATE SODIUM 50 MG/SENNA 8.6 MG TAB PO SCH ×2 (08:33→19:57)
[2017-10-01] MEDS: SODIUM CHLORIDE 0.9% FLUSH 10 ML FLUSH IV FLUSH SCH ×2 (08:33→21:20)
[2017-10-01] MEDS: CHLORHEXIDINE 0.12% (ORAL KIT) 15 ML CUP MT SCH ×2 (08:35→21:18)
--- NOTE | 2017-10-01 10:22 | HHI.CCPN ---
Subjective Remarks/Hospital Course 09/30: 52-year-old lady with history of thalassemia and achalasia was admitted yesterday with right-sided neck pain and right-sided chest pain that started approximately 1 week ago. In addition patient also complaining of nausea and vomiting. Information is obtained entirely from chart since patient is intubated and there is no family available at bedside. On routine chest x-ray patient was found to have a large area of consolidation over the right side she underwent a CT chest that showed a large hollow structure in posterior mediastinum and medial right chest containing mixture of gas and particulate matter probably representing markedly distended esophagus. Patient was seen by gastroenterology service and she underwent EGD this morning. Further information was obtained from anesthesia service. The procedure was started under MAC anesthesia upon introduction of the scope in the esophagus she was found to have a megaesophagus with retained food contents. Scope was withdrawn to allow endotracheal intubation and upon withdrawal patient started coughing and aspirated. Patient was immediately intubated and the procedure was restarted. Post procedure patient remained intubated therefore CCM service was consulted for ventilator management and ICU admission. Patient was seen immediately in PACU, intubated and sedated, FiO2 of 0.4, PEEP of 5, O2 sat 100% . Case was discussed with both anesthesia and gastroenterology services. No family is present at bedside. 10/01: Patient remains sedated and intubated. No events over the night. T-max of 99.6. Urine output borderline low. Sedation is achieved with propofol and fentanyl. On 0.4 FiO2. Daughter present at bedside and she tells as the patient is a [employer]. Objective Vital Signs Date Time Temp Pulse Resp B/P (MAP) Pulse Ox O2 Delivery O2 Flow Rate FiO2 10/01/17 08:12 100 40 10/01/17 08:00 59 10/01/17 08:00 99.6 13 85/52 (63) 09/30/17 16:30 Mechanical Ventilator Intake and Output 10/01/17 10/01/17 10/02/17 08:00 16:00 00:00 Intake Total 300 ml Output Total 275 ml Balance 25 ml Result Diagram: 10/01/17 0416 10/01/17 0416 Other Results Laboratory Tests Test 09/30/17 15:10 Blood Gas Puncture Site RT RADIAL Blood Gas Patient Temperature 98.6 Blood Gas HCO3 24 mmol/L (22-26) Blood Gas Base Excess 0.2 mmol/L (-2-2) Blood Gas Oxygen Saturation 94 % (90-100) Arterial Blood pH 7.46 (7.380-7.420) Arterial Blood Partial Pressure CO2 34 mmHg (38-42) Arterial Blood Partial Pressure O2 88 mmHg (61-120) Arterial Blood Oxygen Content 14.5 Vol % (12.0-20.0) Arterial Blood Carboxyhemoglobin 1.1 % (0-4) Arterial Blood Methemoglobin 1.6 % (0-2) Blood Gas Hemoglobin 10.8 G/DL (12.0-16.0) Oxygen Delivery Device VENTILATOR Blood Gas Ventilator Setting A/C 500/12/5PEEP Blood Gas Inspired Oxygen 40 % Objective Remarks General - middle-aged lady, intubated and sedated HEENT - pupils are equal, reactive, sclerae are anicteric, neck is supple, no rigidity, no JVD, no carotid bruit, orally intubated CV - regular heart sounds, no murmurs Chest - clear b/l, good air entry, no wheezes Abdomen - soft, slightly distended, remained non-tender, BS present, no hepatomegaly, no splenomegaly Extremities - warm, no edema, + peripheral pulses Neuro - intubated, sedated, arousable, opens eyes to voice stimuli, but does not follow commands, appears to move all 4 extremities A/P Assessment and Plan 1. Achalasia with megaesophagus and retained food contents status post EGD 2. Acute respiratory insufficiency 3. Possible aspiration pneumonia 4. History of thalassemia 1. Continue PRVC mode of ventilation at current vent settings. PIP is less than 30, patient is synchronized with the ventilator, no auto PEEP 2. Vent bundle and bronchodilators 3. Continue sedation with propofol and fentanyl to maintain a RASS of -2 4. Continue Reglan 5. Continue Unasyn 6. GI follow-up 7. We will ask for surgical evaluation to see if there are any surgical options available 8. N.p.o. 9. GI and DVT prophylaxis 10. [facility] 11. CT chest today to reevaluate the esophagus if no plans for repeat EGD My concern is that when we will attempt to extubate the patient, she still remains at extremely high risk for vomiting and aspiration. I discussed my concern with GI and I also discussed regarding repeating EGD and attempting to suction the esophageal content. If no plan to repeat EGD we will repeat a CT chest to reevaluate the esophagus tomorrow. No family present at bedside. Iglesia Hester MD Oct 01, 2017 10:22
--- NOTE | 2017-10-01 11:22 | MB ---
cc: Albaro Valdovinos MD, PhD DATE: 10/01/2017 REASON FOR CONSULTATION: Difficulty with word-finding, right-sided numbness. HISTORY OF PRESENT ILLNESS: Ms. Briseno is a 52-year-old female who presented with right-sided neck pain, right chest wall pain for about a week, with nausea and vomiting. She was found to have norberto esophagus with retained food contents who has been intubated to avoid aspiration. According to the chart, she was complaining of some difficulties initially with getting words out and some right-sided numbness. The patient is intubated, unable to give history at the present time. There is no family at the bedside. PAST MEDICAL HISTORY: History of thalassemia, as well as achalasia. CURRENT MEDICATIONS: 1. Lovenox 40 mg subcutaneous daily. 2. Lidoderm patch. 3. Propofol 4. Albuterol. 5. Reglan. 6. Fentanyl. 7. Clonidine p.r.n. 8. Metoprolol p.r.n. 9. Chlorhexidine Tylenol p.r.n. 10. Ultram p.r.n. 11. Morphine p.r.n. 12. Senokot. 13. Dulcolax. 14. Lactulose p.r.n. NEUROLOGICAL EXAMINATION: VITAL SIGNS: Her blood pressure is 85/52, pulse 59, respiratory rate is 13, temperature 99.6 degrees. HIGHER CORTICAL FUNCTION: She is alert. She follows commands. Unable to assess speech as she is intubated. CRANIAL NERVES: Intact. Pupils are 2 mm, symmetric and reactive. MOTOR EXAM: She has normal strength in both upper and lower extremities. She complains of subjective decreased sensation in the right arm to soft touch. Reflexes are 2+ biceps, triceps and brachioradialis, symmetric. IMAGING STUDIES: CT of the brain: No acute change. Carotid ultrasound is normal. IMPRESSION: Based on the history obtained from the chart, the patient had apparently difficulty with word-finding and right-sided sensory changes, etiology of which is unclear at this time. RECOMMENDATIONS: MRI of the brain would be helpful to further evaluate to rule out demyelinating disease and rule out stroke. Albaro Valdovinos MD, PhD JEANNETTE/OWEN , 10:48 AM , 11:21 AM
--- NOTE | 2017-10-01 12:33 | HHI.GIFU ---
Subjective Remarks Pt resting in bed, intubated. friend at bedside. Objective Vitals I&O Vital Signs Date Time Temp Pulse Resp B/P (MAP) Pulse Ox O2 Delivery O2 Flow Rate FiO2 10/01/17 12:12 100 35 10/01/17 10:00 57 10/01/17 08:12 100 40 10/01/17 08:00 59 10/01/17 08:00 40 10/01/17 08:00 99.6 59 13 85/52 (63) 98 10/01/17 06:00 62 10/01/17 04:12 99 40 10/01/17 04:00 66 10/01/17 04:00 99.6 66 12 107/63 (78) 100 10/01/17 04:00 40 10/01/17 02:00 59 10/01/17 01:46 100 40 10/01/17 00:00 99.5 61 12 110/66 (81) 100 10/01/17 00:00 61 10/01/17 00:00 40 09/30/17 22:40 100 40 09/30/17 22:00 65 09/30/17 20:40 100 40 09/30/17 20:00 59 09/30/17 20:00 98.6 59 12 115/71 (86) 100 09/30/17 20:00 40 09/30/17 18:30 99.1 59 12 127/68 (87) 100 09/30/17 18:18 100 40 09/30/17 16:30 61 12 144/79 (100) 100 Mechanical Ventilator 40 09/30/17 16:00 98.1 68 12 141/78 (99) 100 Mechanical Ventilator 40 09/30/17 15:30 65 19 139/86 (103) 100 Mechanical Ventilator 40 09/30/17 15:00 69 19 138/86 (103) 100 Mechanical Ventilator 40 09/30/17 14:45 69 17 133/81 (98) 100 Mechanical Ventilator 40 09/30/17 14:30 71 20 124/73 (90) 100 Mechanical Ventilator 40 09/30/17 14:15 78 19 132/83 (99) 100 Mechanical Ventilator 40 09/30/17 13:53 40 09/30/17 13:53 98.4 85 22 139/63 (88) 100 Mechanical Ventilator 40 09/30/17 13:50 100 40 I/O 09/30/17 09/30/17 09/30/17 10/01/17 10/01/17 10/01/17 07:00 15:00 23:00 07:00 15:00 23:00 Intake Total 749.3 ml 1300 ml Output Total 225 ml 275 ml Balance 524.3 ml 1025 ml Intake IV Total 749.3 ml 1300 ml Output Urine Total 225 ml 275 ml # Voids 1 Laboratory Laboratory Tests Test 09/30/17 15:10 09/30/17 18:20 10/01/17 04:16 Blood Gas Puncture Site RT RADIAL Blood Gas Patient Temperature 98.6 Blood Gas HCO3 24 Blood Gas Base Excess 0.2 Blood Gas Oxygen Saturation 94 Arterial Blood pH 7.46 Arterial Blood Partial Pressure CO2 34 Arterial Blood Partial Pressure O2 88 Arterial Blood Oxygen Content 14.5 Arterial Blood Carboxyhemoglobin 1.1 Arterial Blood Methemoglobin 1.6 Blood Gas Hemoglobin 10.8 Oxygen Delivery Device VENTILATOR Blood Gas Ventilator Setting A/C 500/12/5PEEP Blood Gas Inspired Oxygen 40 Nasal Screen MRSA (PCR) MRSA DETECTED White Blood Count 7.8 Red Blood Count 4.67 Hemoglobin 10.6 Hematocrit 33.9 Mean Corpuscular Volume 72.6 Mean Corpuscular Hemoglobin 22.7 Mean Corpuscular Hemoglobin Concent 31.3 Red Cell Distribution Width 14.1 Platelet Count 184 Mean Platelet Volume 9.4 Neutrophils (%) (Auto) 66.8 Lymphocytes (%) (Auto) 20.9 Monocytes (%) (Auto) 9.0 Eosinophils (%) (Auto) 2.9 Basophils (%) (Auto) 0.4 Neutrophils # (Auto) 5.2 Lymphocytes # (Auto) 1.6 Monocytes # (Auto) 0.7 Eosinophils # (Auto) 0.2 Basophils # (Auto) 0.0 CBC Comment DIFF FINAL Differential Comment Blood Urea Nitrogen 10 Creatinine 0.97 Random Glucose 89 Total Protein 6.0 Albumin 2.9 Calcium Level 7.7 Phosphorus Level 3.0 Magnesium Level 1.8 Alkaline Phosphatase 74 Aspartate Amino Transf (AST/SGOT) 15 Alanine Aminotransferase (ALT/SGPT) 19 Total Bilirubin 0.2 Sodium Level 144 Potassium Level 3.6 Chloride Level 111 Carbon Dioxide Level 24.3 Anion Gap 9 Estimat Glomerular Filtration Rate 60 Human Chorionic Gonadotropin, Quant LESS THAN 1 Imaging Last Impressions Chest X-Ray 10/01/17 0600 Signed Impressions: Service Date/Time: Sunday, October 01, 2017 05:05 - CONCLUSION: Interval development of left lower lobe consolidation. Speedy Baker MD Carotid Artery Ultrasound 09/30/17 0000 Signed Impressions: Service Date/Time: Saturday, September 30, 2017 22:29 - CONCLUSION: Normal hemodynamic profile bilateral carotids. The Speedy Baker MD Head CT 09/29/17 2105 Signed Impressions: Service Date/Time: Friday, September 29, 2017 21:17 - CONCLUSION: 1. No acute intracranial abnormality. 2. Right side predominant paranasal sinus disease. Thierry Bui MD Chest CT 09/29/17 0000 Signed Impressions: Service Date/Time: Friday, September 29, 2017 23:02 - CONCLUSION: Large hollow structure in the posterior mediastinum and medial right chest containing a mixture of gas and particulate matter probably representing a markedly distended esophagus. Possible mass at the level of the GE junction. Speedy Baker MD Physical Exam HEENT: normocephalic; atraumatic; no jaundice. CHEST: CTA CARDIAC: RRR ABDOMEN: Soft, nondistended, nontender; no hepatosplenomegaly; bowel sounds are present in all four quadrants. EXTREMITIES: No clubbing, cyanosis, or edema. SKIN: Normal; no rash; no jaundice. RN CVOR: opens eyes Assessment and Plan Assessment: (1) Obstruction of esophagus ICD Codes: K22.2 - Esophageal obstruction Status: Acute (2) Esophageal dilatation ICD Codes: K22.8 - Other specified diseases of esophagus (3) Intractable nausea and vomiting ICD Codes: R11.2 - Nausea with vomiting, unspecified Plan 52-year-old female who has had aggregating factors of dysphasia food getting stuck, nausea vomiting for the past 30 years. Patient initially had 2 EGDs with possible dilatation she thinks, no previous colonoscopy. Patient states she is drinking fluids constantly trying to clear any residue from her esophagus. Chest CT showed a large hollow structure in the posterior mediastinum and medial right chest containing a mixture of gas and particle matter probably representing markedly dilated esophagus possible mass at the level of the GE junction. hemoglobin 11.5 , PT/INR 1.1 10/01/17 s/p EGD found norberto esophagus, retained food, likely achalasia. She was intubated after procedure and reportedly aspirated during intubation. UGI series, ba swallow are pending. CXR shows consolidation. Plan no plans at this time to repeat EGD keep intubated GS consult await Ba swallow await UGIseries supportive care Patient was seen per myself and Dr. Muhammad, note was written on his behalf Kinza Schafer Oct 01, 2017 12:33
[2017-10-01 13:08] LABS: HEMOGLOBIN A1C 5.7 % (4.3-6.0)
--- NOTE | 2017-10-01 16:14 | RADRPT ---
EXAM DATE/TIME: 10/01/2017 15:07 [facility] COMPARISON: CT THORAX W CONTRAST, September 29, 2017, 23:02. CHEST SINGLE AP, October 01, 2017, 5:05. INDICATIONS : Short of breath. MEDICAL HISTORY : None. SURGICAL HISTORY : None. ENCOUNTER: Subsequent ACUITY: 2 days PAIN SCORE: 0/10 LOCATION: Bilateral chest FINDINGS: ET tube is well placed. The heart size appears normal. There is hazy density seen throughout the mid and lower right chest. The left lung appears grossly clear. CONCLUSION: Persistent increased density in the right mid and lower chest. The patient had a distended esophagus on a prior CT examination. This raises the possibility of achalasia. Thierry Gonzales MD on October 01, 2017 at 16:10 Board Certified Radiologist. This report was verified electronically.
--- NOTE | 2017-10-01 18:16 | MB ---
cc: Boston Vernon MD DATE: 10/01/2017 REQUESTING PHYSICIAN: João Muhammad MD REASON FOR CONSULTATION: Norberto esophagus with achalasia. HISTORY OF PRESENT ILLNESS: The patient is a 52-year-old female who presented to [facility] with some altered mental status. She also has right-sided neck pain and chest wall pain for about a week. This is associated with nausea and vomiting. The patient had a known history of achalasia and dilated esophagus with trouble tolerating food intake. She underwent a CT scan, which showed a large norberto esophagus with distal obstruction. Upper endoscopy was performed by Dr. Muhammad, and it did show a norberto esophagus with large amount of retained food. There was no obvious malignancy. This was consistent with a norberto esophagus and achalasia. Again, patient was told 30 years ago she had achalasia while in [place], and she did not want to undergo surgery at that time. According to the record, the patient has not received any previous surgery or Botox, but possible dilations were done. The patient unfortunately did have an episode of aspiration during the EGD and is currently on the medical intensive care unit on the ventilator for pneumonia. REVIEW OF SYSTEMS: Unable to obtain due to patient being intubated on the ventilator. PAST MEDICAL HISTORY: Obtained from the chart, achalasia and history of thalassemia. The patient is also a Shinto. PAST SURGICAL HISTORY: History of previous EGDs. No major abdominal operations. ALLERGIES: NO KNOWN DRUG ALLERGIES. MEDICATIONS: Lovenox, propofol, albuterol, ipratropium, Unasyn, Pepcid, insulin, morphine. SOCIAL HISTORY: The patient has no history of alcohol, tobacco or illicit drug use. FAMILY HISTORY: Noncontributory. PHYSICAL EXAMINATION: VITAL SIGNS: Heart rate 54, blood pressure 85/52, O2 saturation 98%, temperature 99.6 degrees. GENERAL: The patient is a 52-year-old female, sedated on the ventilator. HEENT: Head is normocephalic, atraumatic. EYES: Pupils are round, reactive, accommodate to light. Sclerae are anicteric. The patient is orally intubated. There is no nasogastric or orogastric tube. NECK: Supple. No JVD. LUNGS: Breath sounds present bilaterally. HEART: Regular rate and rhythm. No murmurs. ABDOMEN: Soft. No surgical scars. No organomegaly. No ascites. Normal bowel sounds. Nontender. EXTREMITIES: No clubbing, cyanosis or edema. NEUROLOGIC: The patient is sedated, responds to stimuli painfully and to touch, moving all extremities equally, grossly. No obvious facial droop or deformity. LABORATORY VALUES: White blood cell count 7.4, hemoglobin 10.6. INR is 1.1. Chemistry reveals albumin 2.9, otherwise unremarkable. IMAGING: A CT of the chest reveals large dilated esophagus, likely with a distal stricture consistent with norberto esophagus and achalasia. ASSESSMENT AND PLAN: The patient is a 52-year-old female with acute aspiration, history of chronic norberto esophagus and achalasia. I do not recommend any acute surgical intervention at this time due to the patient having acute aspiration pneumonia and being in respiratory failure. I did talk to the family, the patient's daughter about the disease process including treatment of achalasia as well as aspiration risk as well as management and possible outcomes of norberto esophagus and chronic dysmotility issues. Did have a conversation that detailed possible treatment options including surgery could be considered when the patient is stable, as well as potential support with a gastrostomy tube for feeding. All their questions were answered to their satisfaction. I also discussed the case with the catch basin cleaner, Dr. Hester, extensively. Surgical team will follow along with the patient and be any assistance we can. Once the patient is extubated and awake and alert, we will further discuss treatment options with the patient as well. Thank you very much for this consultation. MD TIFF Kaur/JOSE MANUEL , 05:11 PM , 06:15 PM
[2017-10-01] MEDS: REMOVE OLD LIDOCAINE PATCH T-DERMAL SCH (21:00)
[2017-10-01] MEDS: ENOXAPARIN SODIUM 40 MG/0.4 ML SYRINGE SQ SCH (21:19)
[2017-10-02] VITALS (23 sets, daily range): BP systolic 96–115; BP diastolic 51–67; PULSE 46–65; RESP 16; TEMP 98.5–99.1; O2SAT 98–100
[2017-10-02] MEDS: AMPICILLIN-SULBACTAM INJ 3 GM in SODIUM CHLORIDE 0.9% INJ 100 ML IV SCH ×4 (03:36→22:49)
[2017-10-02] MEDS: FAMOTIDINE 20 MG/2 ML VIAL IV PUSH SCH ×2 (03:36→18:32)
[2017-10-02] MEDS: RESP: ALBUTEROL 2.5 MG/IPRATROPIUM 0.5 MG NEB (SCH) NEB ×4 (04:04→21:31)
[2017-10-02] MEDS: PROPOFOL 1000 MG/100 ML IV PRN ×5 (04:57→22:48)
[2017-10-02] MEDS: METOCLOPRAMIDE HCL 10 MG/2 ML VIAL IM SCH (05:33)
[2017-10-02] MEDS: SODIUM CHLOR 0.9% 1000 ML INJ 1,000 ML IV SCH ×2 (07:24→21:59)
[2017-10-02 07:54] LABS: AUTOMATED NEUTROPHIL # 5.8 TH/MM3 (1.8-7.7); BASOPHIL % 0.4 % (0.0-2.0); EOSINOPHIL # 0.2 TH/MM3 (0-0.4); EOSINOPHIL % 1.9 % (0.0-4.0); HEMATOCRIT 34.4 % (35.0-46.0); HEMOGLOBIN 10.7 GM/DL (11.6-15.3); LYMPH % 18.6 % (9.0-44.0); LYMPHOCYTE # 1.6 TH/MM3 (1.0-4.8); MEAN CELL VOLUME 73.1 FL (80.0-100.0); MEAN CORPUSCULAR HEMOGLOBIN 22.8 PG (27.0-34.0); MEAN CORPUSCULAR HGB CONC 31.2 % (32.0-36.0); MEAN PLATELET VOLUME 10.1 FL (7.0-11.0); MONO % 11.7 % (0.0-8.0); NEUT % 67.4 % (16.0-70.0); PLATELET COUNT 161 TH/MM3 (150-450); RED BLOOD COUNT 4.71 MIL/MM3 (4.00-5.30); RED CELL DISTRIBUTION WIDTH 14.1 % (11.6-17.2); WHITE BLOOD COUNT 8.5 TH/MM3 (4.0-11.0)
[2017-10-02] MEDS: CHLORHEXIDINE 0.12% (ORAL KIT) 15 ML CUP MT SCH ×2 (08:00→22:50)
[2017-10-02 08:11] LABS: ALBUMIN 2.8 GM/DL (3.4-5.0); ALT (GPT) 25 U/L (10-53); AST (GOT) 25 U/L (15-37); BICARBONATE 23.3 MEQ/L (21.0-32.0); BLOOD UREA NITROGEN 8 MG/DL (7-18); CALCIUM 7.9 MG/DL (8.5-10.1); CHLORIDE 114 MEQ/L (98-107); CREATININE 0.91 MG/DL (0.50-1.00); GLOMERULAR FILTRATION RATE 65 ML/MIN (>89); GLUCOSE,RANDOM 71 MG/DL (74-106); MAGNESIUM 1.9 MG/DL (1.5-2.5); PHOSPHORUS 2.8 MG/DL (2.5-4.9); SODIUM (NA) 145 MEQ/L (136-145)
[2017-10-02 08:14] LABS: ALKALINE PHOSPHATASE 75 U/L (45-117); TOTAL BILIRUBIN ADULT 0.3 MG/DL (0.2-1.0); TOTAL PROTEIN 6.2 GM/DL (6.4-8.2)
[2017-10-02] MEDS: DOCUSATE SODIUM 50 MG/SENNA 8.6 MG TAB PO SCH ×2 (09:00→21:00)
[2017-10-02] MEDS: SODIUM CHLORIDE 0.9% FLUSH 10 ML FLUSH IV FLUSH SCH ×2 (09:00→22:49)
[2017-10-02] MEDS: fentaNYL DRIP 250 ML IV PRN ×2 (09:45→18:33)
--- NOTE | 2017-10-02 10:52 | HHI.CCPN ---
Subjective Remarks/Hospital Course 09/30: 52-year-old lady with history of thalassemia and achalasia was admitted yesterday with right-sided neck pain and right-sided chest pain that started approximately 1 week ago. In addition patient also complaining of nausea and vomiting. Information is obtained entirely from chart since patient is intubated and there is no family available at bedside. On routine chest x-ray patient was found to have a large area of consolidation over the right side she underwent a CT chest that showed a large hollow structure in posterior mediastinum and medial right chest containing mixture of gas and particulate matter probably representing markedly distended esophagus. Patient was seen by gastroenterology service and she underwent EGD this morning. Further information was obtained from anesthesia service. The procedure was started under MAC anesthesia upon introduction of the scope in the esophagus she was found to have a megaesophagus with retained food contents. Scope was withdrawn to allow endotracheal intubation and upon withdrawal patient started coughing and aspirated. Patient was immediately intubated and the procedure was restarted. Post procedure patient remained intubated therefore CCM service was consulted for ventilator management and ICU admission. Patient was seen immediately in PACU, intubated and sedated, FiO2 of 0.4, PEEP of 5, O2 sat 100% . Case was discussed with both anesthesia and gastroenterology services. No family is present at bedside. 10/01: Patient remains sedated and intubated. No events over the night. T-max of 99.6. Urine output borderline low. Sedation is achieved with propofol and fentanyl. On 0.4 FiO2. Daughter present at bedside and she tells as the patient is a Gnosticist. 10/02: No events over the night. T-max of 100.1. Patient remains intubated and sedated. She becomes agitated every time sedation is decreased. Patient is a Gnosticist. Objective Vital Signs Date Time Temp Pulse Resp B/P (MAP) Pulse Ox O2 Delivery O2 Flow Rate FiO2 10/02/17 09:50 100 100 10/02/17 06:00 58 10/02/17 04:00 99.0 16 96/54 (68) 09/30/17 16:30 Mechanical Ventilator Intake and Output 10/02/17 10/02/17 10/02/17 07:59 15:59 23:59 Intake Total 1300 ml Output Total 475 ml Balance 825 ml Result Diagram: 10/02/17 0658 10/02/17 0658 Other Results Laboratory Tests Test 10/01/17 16:50 Blood Gas Puncture Site RT RADIAL Blood Gas Patient Temperature 98.6 Blood Gas HCO3 20 mmol/L (22-26) Blood Gas Base Excess -3.2 mmol/L (-2-2) Blood Gas Oxygen Saturation 97 % (90-100) Arterial Blood pH 7.46 (7.380-7.420) Arterial Blood Partial Pressure CO2 29 mmHg (38-42) Arterial Blood Partial Pressure O2 140 mmHg (61-120) Arterial Blood Oxygen Content 14.1 Vol % (12.0-20.0) Arterial Blood Carboxyhemoglobin 0.6 % (0-4) Arterial Blood Methemoglobin 1.2 % (0-2) Blood Gas Hemoglobin 10.2 G/DL (12.0-16.0) Oxygen Delivery Device VENTILATOR Blood Gas Ventilator Setting Objective Remarks General - middle-aged lady, intubated, sedated HEENT - pupils equal, reactive, sclerae anicteric, neck supple, no rigidity, no JVD, orally intubated CV - regular S1 and S2, no murmurs, rubs or gallops Chest - clear b/l, good air entry, no wheezes Abdomen - soft, slightly distended, non-tender, BS present Extremities - warm and well-perfused, no edema, + peripheral pulses Neuro - intubated, sedated, does not open eyes to voice stimuli, pupils remain equal and reactive, grimaces to pain A/P Assessment and Plan 1. Achalasia with megaesophagus and retained food contents status post EGD 2. Acute respiratory insufficiency 3. Possible aspiration pneumonia 4. History of thalassemia 1. Continue PRVC mode of ventilation at current vent settings. PIP is 30, patient is synchronized with the ventilator, no auto PEEP 2. Vent bundle and bronchodilators 3. Continue sedation with propofol and fentanyl to maintain a RASS of -2 4. Continue Reglan 5. Continue Unasyn 6. GI follow-up regarding repeat endoscopy 7. Appreciate surgical consult 8. N.p.o. 9. GI and DVT prophylaxis 10. Gnosticist 11. CT chest today to reevaluate how much food content is in the esophagus My concern is that when we will attempt to extubate the patient, she still remains at extremely high risk for vomiting and aspiration. I discussed with HCP and family yesterday in detail about patient's condition and plan. No family present at bedside today. Addendum: Discussed with GI, they will re-scope the patient today. Appreciate their assistance. Iglesia Hester MD Oct 02, 2017 10:52
--- NOTE | 2017-10-02 10:59 | RADRPT ---
EXAM DATE/TIME: 10/02/2017 10:15 [facility] COMPARISON: CT BRAIN W/O CONTRAST, September 29, 2017, 21:17. INDICATIONS : CVA. Numbness of right side of face for one week. CONTRAST: 17 cc Omniscan (gadodiamide) IV MEDICAL HISTORY : Achalasia. SURGICAL HISTORY : Endoscopy with dilation. ENCOUNTER: Initial ACUITY: 2 day PAIN SCORE: 0/10 LOCATION: Head. TECHNIQUE: Multiplanar, multisequence MRI of the brain was performed both prior to and following the administrat ion of paramagnetic contrast. FINDINGS: CEREBRUM: The ventricles are normal for age. No evidence of midline shift, mass lesion, hemorrhage or acute in farction. No extraaxial fluid collections are seen. The pituitary gland and suprasellar cistern are normal in configuration. WHITE MATTER: No significant signal abnormalities are seen in the white matter. POSTERIOR FOSSA: The cerebellum and brainstem are intact. The 4th ventricle is midline. The cerebellopontine angle is unremarkable. The cerebellar tonsils are normal in position. DIFFUSION IMAGING: No focal areas of restricted diffusion are seen. No evidence of acute infarction. EXTRACRANIAL: Opacified right maxillary right ethmoids. POST-CONTRAST: No abnormal areas of parenchymal or dural enhancement. No evidence of blood-brain barrier breakdown. CONCLUSION: 1. Negative MRI of the brain with and without contrast. 2. Right maxillary and ethmoid sinus disease. Speedy Baker MD on October 02, 2017 at 10:56 Board Certified Radiologist. This report was verified electronically.
--- NOTE | 2017-10-02 11:04 | RADRPT ---
EXAM DATE/TIME: 10/02/2017 10:49 [facility] COMPARISON: CT THORAX W CONTRAST, September 29, 2017, 23:02. CHEST SINGLE AP, October 01, 2017, 15:07. INDICATIONS : Chest pain for one week. RADIATION DOSE: 12.0 CTDIvol (mGy) MEDICAL HISTORY : achalasia of the esophagus SURGICAL HISTORY : Tubal ligation. ENCOUNTER: Initial ACUITY: 1 day PAIN SCALE: Non-responsive LOCATION: Bilateral chest TECHNIQUE: Volumetric scanning of the chest was performed. Using automated exposure control and adjustment of t he mA and/or kV according to patient size, radiation dose was kept as low as reasonably achievable to obtain optimal diagnostic quality images. DICOM format image data is available electronically for r eview and comparison. Follow-up recommendations for detected pulmonary nodules are based at a minimum on nodule size and pa tient risk factors according to Fleischner Society Guidelines. FINDINGS: Interval development of lobar consolidation in the left lower lobe with air bronchograms. There also new infiltrates about the right thoracic esophagus. Interval development of small bilateral pleural effusions. Is also interval development of some ascites along the right margin of the liver. Endot dar tube tip is above the marcial. Osseous structures are grossly intact. CONCLUSION: Interval development of left lower lobe consolidation and compressive atelectasis/infiltrate at the r ight intrathoracic mid esophagus. There is also development of small bilateral pleural effusions and mild ascites. Speedy Baker MD on October 02, 2017 at 10:59 Board Certified Radiologist. This report was verified electronically.
[2017-10-02] MEDS ORDERED: GADODIAMIDE PF 287 MG/ML 20 ML VIAL (for RAD MRI) IVCONTRAST ONE (11:05)
--- NOTE | 2017-10-02 11:45 | HHI.GIFU ---
Subjective Remarks Pt just back from MRI. (Kinza Schafer) Objective Vitals I&O Vital Signs Date Time Temp Pulse Resp B/P (MAP) Pulse Ox O2 Delivery O2 Flow Rate FiO2 10/02/17 09:50 100 100 10/02/17 08:22 100 40 10/02/17 06:00 58 10/02/17 04:05 100 40 10/02/17 04:00 45 10/02/17 04:00 51 10/02/17 04:00 99.0 51 16 96/54 (68) 100 10/02/17 02:00 51 10/02/17 00:00 55 10/02/17 00:00 45 10/02/17 00:00 99.1 55 16 115/67 (83) 100 10/01/17 22:56 100 40 10/01/17 22:00 67 10/01/17 20:15 100 45 10/01/17 20:00 100.1 61 16 111/63 (79) 99 10/01/17 20:00 45 10/01/17 20:00 61 10/01/17 18:00 86 10/01/17 16:42 99 45 10/01/17 16:00 45 10/01/17 16:00 63 10/01/17 16:00 98.9 63 24 118/61 (80) 98 10/01/17 14:00 92 10/01/17 12:12 100 35 10/01/17 12:00 35 10/01/17 12:00 55 10/01/17 12:00 98.4 55 12 95/59 (71) 100 I/O 10/01/17 10/01/17 10/01/17 10/02/17 10/02/17 10/02/17 06:59 14:59 22:59 06:59 14:59 22:59 Intake Total 1300 ml 100 ml 1588 ml 300 ml 1000 ml Output Total 275 ml 300 ml 475 ml Balance 1025 ml 100 ml 1288 ml -175 ml 1000 ml Intake IV Total 1300 ml 100 ml 1588 ml 300 ml 1000 ml Output Urine Total 275 ml 300 ml 475 ml # Bowel Movements 0 Laboratory Laboratory Tests Test 10/01/17 16:50 10/02/17 06:58 Blood Gas Puncture Site RT RADIAL Blood Gas Patient Temperature 98.6 Blood Gas HCO3 20 Blood Gas Base Excess -3.2 Blood Gas Oxygen Saturation 97 Arterial Blood pH 7.46 Arterial Blood Partial Pressure CO2 29 Arterial Blood Partial Pressure O2 140 Arterial Blood Oxygen Content 14.1 Arterial Blood Carboxyhemoglobin 0.6 Arterial Blood Methemoglobin 1.2 Blood Gas Hemoglobin 10.2 Oxygen Delivery Device VENTILATOR Blood Gas Ventilator Setting White Blood Count 8.5 Red Blood Count 4.71 Hemoglobin 10.7 Hematocrit 34.4 Mean Corpuscular Volume 73.1 Mean Corpuscular Hemoglobin 22.8 Mean Corpuscular Hemoglobin Concent 31.2 Red Cell Distribution Width 14.1 Platelet Count 161 Mean Platelet Volume 10.1 Neutrophils (%) (Auto) 67.4 Lymphocytes (%) (Auto) 18.6 Monocytes (%) (Auto) 11.7 Eosinophils (%) (Auto) 1.9 Basophils (%) (Auto) 0.4 Neutrophils # (Auto) 5.8 Lymphocytes # (Auto) 1.6 Monocytes # (Auto) 1.0 Eosinophils # (Auto) 0.2 Basophils # (Auto) 0.0 CBC Comment DIFF FINAL Differential Comment Blood Urea Nitrogen 8 Creatinine 0.91 Random Glucose 71 Total Protein 6.2 Albumin 2.8 Calcium Level 7.9 Phosphorus Level 2.8 Magnesium Level 1.9 Alkaline Phosphatase 75 Aspartate Amino Transf (AST/SGOT) 25 Alanine Aminotransferase (ALT/SGPT) 25 Total Bilirubin 0.3 Sodium Level 145 Potassium Level 3.6 Chloride Level 114 Carbon Dioxide Level 23.3 Anion Gap 8 Estimat Glomerular Filtration Rate 65 Imaging Last Impressions Chest CT 10/02/17 0000 Signed Impressions: Service Date/Time: Monday, October 02, 2017 10:49 - CONCLUSION: Interval development of left lower lobe consolidation and compressive atelectasis/infiltrate at the right intrathoracic mid esophagus. There is also development of small bilateral pleural effusions and mild ascites. Speedy Baker MD Brain MRI 10/02/17 0000 Signed Impressions: Service Date/Time: Monday, October 02, 2017 10:15 - CONCLUSION: 1. Negative MRI of the brain with and without contrast. 2. Right maxillary and ethmoid sinus disease. Speedy Baker MD Chest X-Ray 10/01/17 0600 Signed Impressions: Service Date/Time: Sunday, October 01, 2017 05:05 - CONCLUSION: Interval development of left lower lobe consolidation. Speedy Baker MD Carotid Artery Ultrasound 09/30/17 0000 Signed Impressions: Service Date/Time: Saturday, September 30, 2017 22:29 - CONCLUSION: Normal hemodynamic profile bilateral carotids. The Speedy Baker MD Head CT [id number] Signed Impressions: Service Date/Time: Friday, September 29, 2017 21:17 - CONCLUSION: 1. No acute intracranial abnormality. 2. Right side predominant paranasal sinus disease. Thierry Bui MD Physical Exam HEENT: normocephalic; atraumatic; no jaundice. CHEST: CTA CARDIAC: mandie ABDOMEN: Soft, mildly distended, nontender; no hepatosplenomegaly; bowel sounds are present in all four quadrants. EXTREMITIES: No clubbing, cyanosis, or edema. SKIN: Normal; no rash; no jaundice. HYDRAULIC BILLET MAKER: sedated on vent (Kinza Schafer) Assessment and Plan Assessment: (1) Obstruction of esophagus ICD Codes: K22.2 - Esophageal obstruction Status: Acute (2) Esophageal dilatation ICD Codes: K22.8 - Other specified diseases of esophagus (3) Intractable nausea and vomiting ICD Codes: R11.2 - Nausea with vomiting, unspecified Plan 52-year-old female who has had aggregating factors of dysphasia food getting stuck, nausea vomiting for the past 30 years. Patient initially had 2 EGDs with possible dilatation she thinks, no previous colonoscopy. Patient states she is drinking fluids constantly trying to clear any residue from her esophagus. Chest CT showed a large hollow structure in the posterior mediastinum and medial right chest containing a mixture of gas and particle matter probably representing markedly dilated esophagus possible mass at the level of the GE junction. hemoglobin 11.5 , PT/INR 1.1 10/01/17 s/p EGD found norberto esophagus, retained food, likely achalasia. She was intubated after procedure and reportedly aspirated during intubation. UGI series, ba swallow are pending. CXR shows consolidation. 10/02/17 d/w [facility], will do EGD and try to remove some food so she can be safely extubated. attempted to call Demetris Ramos [facility] but no answer. Spoke with daughter preethi who said she wants him to make the decisions and that she would try to contact him and have him get [place] [facility] no surgical interventions at this time, possibly after PNA resolved. Plan EGD today obtain consent GS consult further recs to follow Patient was seen per myself and Dr. Carbone, note was written on his behalf (Kinza Schafer) Plan Patient was seen and examined, agree with above note, had a discussion with the forest worker and the family, will repeat upper endoscopy today to try to remove the fluid from the stomach and the esophagus before the patient gets extubated, patient will need surgical management of her achalasia since her esophagus is extremely dilated (Markel Carbone MD) Kinza Schafer Oct 02, 2017 11:45 Markel Carbone MD Oct 02, 2017 14:44
[2017-10-02] MEDS ORDERED: PROPOFOL 200 MG/20 ML AMP IV ONE (12:00)
[2017-10-02] MEDS: LIDOCAINE HCL 5% PATCH T-DERMAL SCH (13:40)
--- NOTE | 2017-10-02 14:48 | PD.PROCEDR ---
GI Procedure PROCEDURE PERFORMED Upper endoscopy with over tube placement and foreign body removal INDICATION FOR PROCEDURE Patient had achalasia the esophagus was full of food and severely dilated, required intubation 2 days ago PROCEDURE: The procedure, risks and benefits were discussed with Ms. Briseno and informed consent was obtained. Anesthesia sedated her with Diprivan. She was placed in the left lateral decubitus position. EGD: The Pentax videoscope was introduced through the oropharynx and advanced to the esophagus , the esophagus was full of food I was not able to go beyond that area so I placed in a short over 2 and irrigated the esophagus and suction, after multiple suction we suctioned about 800 cc of food from the esophagus, the scope was placed again in the esophagus then advanced to second portion of the duodenum under direct visualization. Retroflexion was performed in the stomach. Then the scope throwback without immediate complication ESTIMATED BLOOD LOSS: None SPECIMENS REMOVED: None COMPLICATIONS: None IMPRESSION: Esophagus was full of food this was removed completely after placing over 2 and suctioning the fluid out The esophagus was severely dilated consistent with known achalasia Stomach and duodenum were normal PLAN: Clear liquid only when patient is ready to be fed until she has surgical approach to this issue with myotomy Surgical consult Continue antibiotic Markel Carbone MD Oct 02, 2017 14:48
[2017-10-02] MEDS ORDERED: MORPHINE SULFATE 4 MG/ML INJ IV PUSH PRN ×2 (20:30)
--- NOTE | 2017-10-02 20:35 | HHI.PR ---
Review/Management Diagnosis episode of transient speech deficit and right sided numbness. No evidence for stroke on MRI. Possible TIA Plan consider low dose asa in the future if able to tolerate with her GI dx. Diagnosis/Plan: Subjective Subjective Comments No acute events reported Active Medications Current Medications Medications (Trade) Dose Ordered Sig/Keyur Route Start Time Stop Time Status Last Admin Sodium Chloride 1,000 ml @ 100 mls/hr Q10H IV 09/29/17 23:59 10/02/17 07:24 (NS Flush) 2 ml UNSCH PRN IV FLUSH 09/30/17 00:00 (NS Flush) 2 ml BID IV FLUSH 09/30/17 09:00 10/02/17 09:00 (Zofran Inj) 4 mg Q6H PRN IVP 09/30/17 00:00 (Mirian-Colace) 1 tab BID PO 09/30/17 09:00 09/30/17 10:37 (Milk Of Magnesia Liq) 30 ml Q12H PRN PO 09/30/17 00:00 (Senokot) 17.2 mg Q12H PRN PO 09/30/17 00:00 (Dulcolax Supp) 10 mg DAILY PRN RECTAL 09/30/17 00:00 (Lactulose Liq) 30 ml DAILY PRN PO 09/30/17 00:00 (Tylenol) 650 mg Q4H PRN PO 09/30/17 11:15 (Ultram) 50 mg Q6H PRN PO 09/30/17 11:15 (Lidoderm 5% Patch.12 Hr) 1 patch DAILY T-DERMAL 10/01/17 09:00 10/02/17 13:40 Miscellaneous Information 1 Q24H T-DERMAL 10/01/17 21:00 10/01/17 21:00 (Catapres) 0.1 mg Q6H PRN PO 09/30/17 11:30 Lactated Ringer's 1,000 ml @ 30 mls/hr Q24H PRN IV 09/30/17 11:30 10/03/17 11:29 Sodium Chloride 500 ml @ 30 mls/hr [id number] PRN IV 09/30/17 11:30 10/03/17 11:29 (Lopressor) 25 mg DOCK PUMPER PRN PO 09/30/17 11:30 10/03/17 11:29 (Betadine 5% Antisepsis Kit) 1 applic DOCK PUMPER PRN EACH NARE 09/30/17 11:30 10/03/17 11:29 (Chlorhexidine 2% Cloth) 3 pack DOCK PUMPER PRN TOPICAL 09/30/17 11:30 10/03/17 11:29 (NovoLIN R INJ) See Protocol Table ... DOCK PUMPER PRN SQ 09/30/17 11:30 10/03/17 11:29 (Peridex 0.12% Liq) 15 ml BID@08,20 MT 09/30/17 20:00 10/02/17 08:00 Fentanyl Citrate 250 ml @ 5 mls/hr TITRATE PRN IV 09/30/17 15:30 10/02/17 18:33 (Duoneb Neb) 1 ampule Q6HR NEB NEB 09/30/17 16:00 10/02/17 15:40 Ampicillin Sodium/ Sulbactam Sodium 3 gm/Sodium Chloride 100 ml @ 200 mls/hr Q6H IV 09/30/17 16:00 10/02/17 18:32 (Lovenox Inj) 40 mg Q24H SQ 10/01/17 21:00 10/01/17 21:19 (Pepcid Inj) 20 mg Q12H IV PUSH 09/30/17 16:00 10/02/17 18:32 Propofol 100 ml @ 2.442 mls/ hr TITRATE PRN IV 09/30/17 20:00 10/02/17 18:33 (Morphine Inj) 2 mg Q3H PRN IV PUSH 10/02/17 20:30 (Morphine Inj) 1 mg Q3H PRN IV PUSH 10/02/17 20:30 Allergies Allergies Coded Allergies No Known Allergies (Unverified09/29/17) Exam I&O / VS 10/02/17 10/02/17 10/03/17 15:00 23:00 07:00 Intake Total 1200 ml Output Total 800 ml Balance 1200 ml -800 ml Intake IV Total 1000 ml Other 200 ml Output Urine Total 800 ml Vital Signs Date Time Temp Pulse Resp B/P (MAP) Pulse Ox O2 Delivery O2 Flow Rate FiO2 10/02/17 18:00 65 10/02/17 16:00 98.9 51 16 106/53 (70) 100 10/02/17 16:00 45 10/02/17 16:00 51 10/02/17 15:00 49 10/02/17 14:34 46 10/02/17 14:00 47 10/02/17 13:00 49 10/02/17 12:19 98 40 10/02/17 12:00 45 10/02/17 12:00 51 10/02/17 12:00 98.5 51 101/57 (72) 98 10/02/17 11:00 53 10/02/17 10:00 58 10/02/17 09:50 100 100 10/02/17 09:00 63 10/02/17 08:22 100 40 10/02/17 08:00 52 10/02/17 08:00 45 10/02/17 08:00 98.8 52 16 112/63 (79) 100 10/02/17 07:00 50 10/02/17 06:00 58 10/02/17 04:05 100 40 10/02/17 04:00 45 10/02/17 04:00 51 10/02/17 04:00 99.0 51 16 96/54 (68) 100 10/02/17 02:00 51 10/02/17 00:00 55 10/02/17 00:00 45 10/02/17 00:00 99.1 55 16 115/67 (83) 100 10/01/17 22:56 100 40 10/01/17 22:00 67 Objective Radiology Results MRI brain--no evidence for acute stroke carotid US--no significant stenosis Micro and Labs Laboratory Tests Test 10/02/17 06:58 White Blood Count 8.5 Red Blood Count 4.71 Hemoglobin 10.7 Hematocrit 34.4 Mean Corpuscular Volume 73.1 Mean Corpuscular Hemoglobin 22.8 Mean Corpuscular Hemoglobin Concent 31.2 Red Cell Distribution Width 14.1 Platelet Count 161 Mean Platelet Volume 10.1 Neutrophils (%) (Auto) 67.4 Lymphocytes (%) (Auto) 18.6 Monocytes (%) (Auto) 11.7 Eosinophils (%) (Auto) 1.9 Basophils (%) (Auto) 0.4 Neutrophils # (Auto) 5.8 Lymphocytes # (Auto) 1.6 Monocytes # (Auto) 1.0 Eosinophils # (Auto) 0.2 Basophils # (Auto) 0.0 CBC Comment DIFF FINAL Differential Comment Blood Urea Nitrogen 8 Creatinine 0.91 Random Glucose 71 Total Protein 6.2 Albumin 2.8 Calcium Level 7.9 Phosphorus Level 2.8 Magnesium Level 1.9 Alkaline Phosphatase 75 Aspartate Amino Transf (AST/SGOT) 25 Alanine Aminotransferase (ALT/SGPT) 25 Total Bilirubin 0.3 Sodium Level 145 Potassium Level 3.6 Chloride Level 114 Carbon Dioxide Level 23.3 Anion Gap 8 Estimat Glomerular Filtration Rate 65 Date/Time Source Procedure Growth Status 10/02/17 17:00 Sputum Endotracheal Gram Stain Pending Received 10/02/17 17:00 Sputum Endotracheal Sputum Culture Pending Received Albaro Valdovinos MD PhD Oct 02, 2017 20:35
[2017-10-02] MEDS: REMOVE OLD LIDOCAINE PATCH T-DERMAL SCH (21:00)
[2017-10-02] MEDS: ENOXAPARIN SODIUM 40 MG/0.4 ML SYRINGE SQ SCH (22:48)
[2017-10-03] VITALS (24 sets, daily range): BP systolic 99–174; BP diastolic 50–84; PULSE 47–97; RESP 13–20; TEMP 98.4–98.8; O2SAT 94–100
[2017-10-03] MEDS: PROPOFOL 1000 MG/100 ML IV PRN ×2 (02:22→06:22)
[2017-10-03] MEDS: AMPICILLIN-SULBACTAM INJ 3 GM in SODIUM CHLORIDE 0.9% INJ 100 ML IV SCH ×4 (03:21→20:23)
[2017-10-03] MEDS: FAMOTIDINE 20 MG/2 ML VIAL IV PUSH SCH ×2 (03:21→18:34)
[2017-10-03] MEDS: fentaNYL DRIP 250 ML IV PRN (04:08)
[2017-10-03] MEDS: RESP: ALBUTEROL 2.5 MG/IPRATROPIUM 0.5 MG NEB (SCH) NEB ×4 (06:13→21:16)
[2017-10-03 06:20] LABS: AUTOMATED NEUTROPHIL # 3.7 TH/MM3 (1.8-7.7); BASOPHIL % 0.8 % (0.0-2.0); EOSINOPHIL # 0.4 TH/MM3 (0-0.4); EOSINOPHIL % 6.5 % (0.0-4.0); HEMATOCRIT 31.3 % (35.0-46.0); HEMOGLOBIN 9.8 GM/DL (11.6-15.3); LYMPH % 20.6 % (9.0-44.0); LYMPHOCYTE # 1.3 TH/MM3 (1.0-4.8); MEAN CELL VOLUME 72.5 FL (80.0-100.0); MEAN CORPUSCULAR HEMOGLOBIN 22.7 PG (27.0-34.0); MEAN CORPUSCULAR HGB CONC 31.3 % (32.0-36.0); MEAN PLATELET VOLUME 10.1 FL (7.0-11.0); MONO % 10.8 % (0.0-8.0); MONOCYTE # 0.7 TH/MM3 (0-0.9); NEUT % 61.3 % (16.0-70.0); PLATELET COUNT 167 TH/MM3 (150-450); RED BLOOD COUNT 4.32 MIL/MM3 (4.00-5.30); WHITE BLOOD COUNT 6.1 TH/MM3 (4.0-11.0)
[2017-10-03 06:39] LABS: ALBUMIN 2.5 GM/DL (3.4-5.0); AST (GOT) 27 U/L (15-37); BICARBONATE 21.4 MEQ/L (21.0-32.0); BLOOD UREA NITROGEN 7 MG/DL (7-18); CALCIUM 7.7 MG/DL (8.5-10.1); CHLORIDE 116 MEQ/L (98-107); CREATININE 0.84 MG/DL (0.50-1.00); GLOMERULAR FILTRATION RATE 71 ML/MIN (>89); GLUCOSE,RANDOM 69 MG/DL (74-106); SODIUM (NA) 147 MEQ/L (136-145)
[2017-10-03 06:43] LABS: ALKALINE PHOSPHATASE 63 U/L (45-117); ALT (GPT) 24 U/L (10-53); PHOSPHORUS 2.5 MG/DL (2.5-4.9); TOTAL BILIRUBIN ADULT 0.2 MG/DL (0.2-1.0); TOTAL PROTEIN 5.6 GM/DL (6.4-8.2)
[2017-10-03] MEDS ORDERED: DEXTROSE 50% IN WATER 50 ML VIAL(D50) IV PUSH PRN (07:00)
[2017-10-03] MEDS ORDERED: GLUCAGON 1 MG/ML VIAL OTHER PRN (07:00)
[2017-10-03] MEDS ORDERED: DEXTROSE 50% IN WATER 50 ML SYRINGE ONE (07:00)
[2017-10-03] MEDS: DEXMEDETOMIDINE INJ 200 MCG in SODIUM CHLORIDE 0.9% INJ 50 ML IV PRN ×2 (07:04→10:56)
--- NOTE | 2017-10-03 07:24 | HHI.CCPN ---
Subjective Remarks/Hospital Course 09/30: 52-year-old lady with history of thalassemia and achalasia was admitted yesterday with right-sided neck pain and right-sided chest pain that started approximately 1 week ago. In addition patient also complaining of nausea and vomiting. Information is obtained entirely from chart since patient is intubated and there is no family available at bedside. On routine chest x-ray patient was found to have a large area of consolidation over the right side she underwent a CT chest that showed a large hollow structure in posterior mediastinum and medial right chest containing mixture of gas and particulate matter probably representing markedly distended esophagus. Patient was seen by gastroenterology service and she underwent EGD this morning. Further information was obtained from anesthesia service. The procedure was started under MAC anesthesia upon introduction of the scope in the esophagus she was found to have a megaesophagus with retained food contents. Scope was withdrawn to allow endotracheal intubation and upon withdrawal patient started coughing and aspirated. Patient was immediately intubated and the procedure was restarted. Post procedure patient remained intubated therefore CCM service was consulted for ventilator management and ICU admission. Patient was seen immediately in PACU, intubated and sedated, FiO2 of 0.4, PEEP of 5, O2 sat 100% . Case was discussed with both anesthesia and gastroenterology services. No family is present at bedside. 10/01: Patient remains sedated and intubated. No events over the night. T-max of 99.6. Urine output borderline low. Sedation is achieved with propofol and fentanyl. On 0.4 FiO2. 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 10/02: No events over the night. T-max of 100.1. Patient remains intubated and sedated. She becomes agitated every time sedation is decreased. 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 Precedex infusion initiated to facilitate ventilator weaning today. The patient underwent EGD yesterday with removal of all foreign body/food. Chest x- ray pending this a.m. Objective Vital Signs Date Time Temp Pulse Resp B/P (MAP) Pulse Ox O2 Delivery O2 Flow Rate FiO2 10/03/17 06:13 100 40 10/03/17 06:00 49 10/03/17 04:00 98.4 16 99/50 (66) 09/30/17 16:30 Mechanical Ventilator Intake and Output 10/03/17 10/03/17 10/04/17 08:00 16:00 00:00 Intake Total 589 ml Output Total 600 ml Balance -11 ml Result Diagram: 10/03/17 0530 10/03/17 0530 Imaging Last Impressions Chest CT 10/02/17 0000 Signed Impressions: Service Date/Time: Monday, October 02, 2017 10:49 - CONCLUSION: Interval development of left lower lobe consolidation and compressive atelectasis/infiltrate at the right intrathoracic mid esophagus. There is also development of small bilateral pleural effusions and mild ascites. Speedy Baker MD Brain MRI 10/02/17 0000 Signed Impressions: Service Date/Time: Monday, October 02, 2017 10:15 - CONCLUSION: 1. Negative MRI of the brain with and without contrast. 2. Right maxillary and ethmoid sinus disease. Speedy Baker MD Chest X-Ray 10/01/17 0600 Signed Impressions: Service Date/Time: Sunday, October 01, 2017 05:05 - CONCLUSION: Interval development of left lower lobe consolidation. Speedy Baker MD Carotid Artery Ultrasound 09/30/17 0000 Signed Impressions: Service Date/Time: Saturday, September 30, 2017 22:29 - CONCLUSION: Normal hemodynamic profile bilateral carotids. The Speedy Baker MD Head CT 09/29/17 2105 Signed Impressions: Service Date/Time: Friday, September 29, 2017 21:17 - CONCLUSION: 1. No acute intracranial abnormality. 2. Right side predominant paranasal sinus disease. Thierry Bui MD Objective Remarks General - middle-aged lady, intubated, sedated HEENT - pupils equal, reactive, sclerae anicteric, neck supple, no rigidity, no JVD, orally intubated CV - regular S1 and S2, no murmurs, rubs or gallops Chest - clear b/l, good air entry, no wheezes Abdomen - soft, slightly distended, non-tender, BS present Extremities - warm and well-perfused, no edema, + peripheral pulses Neuro - intubated, sedated, does not open eyes to voice stimuli, pupils remain equal and reactive, grimaces to pain A/P Assessment and Plan 1. Achalasia with megaesophagus and retained food contents status post EGD 2. Acute respiratory insufficiency 3. Possible aspiration pneumonia 4. History of thalassemia 1. Begin CPAP trials, 2. Vent bundle and bronchodilators 3. Wean propofol and fentanyl infusions off, tolerated by patient . Precedex infusion to facilitate vent weaning 4. Continue Reglan 5. Continue Unasyn 6. GI following. S/P repeat endoscopy on 10/02 7. Appreciate surgical consult 8. Maintain n.p.o. status 9. GI and DVT prophylaxis 10. Scientologist 11. Repeat chest x-ray this a.m. 12. Follow up sputum cultures Level 3 follow up Plan for CPAP trials and SBT parameters today. Discussed with MARKET DEVELOPMENT ANALYST at bedside. Physician Deana Galindo MD October 03, 2017 07:24
[2017-10-03] MEDS: SODIUM CHLOR 0.9% 1000 ML INJ 1,000 ML IV SCH ×2 (07:59→18:33)
[2017-10-03] MEDS: CHLORHEXIDINE 0.12% (ORAL KIT) 15 ML CUP MT SCH ×2 (08:00→19:49)
[2017-10-03] MEDS: INSULIN ASPART SUPPLEMENTAL SCALE SQ SCH ×4 (08:00→19:48)
[2017-10-03] MEDS: DOCUSATE SODIUM 50 MG/SENNA 8.6 MG TAB PO SCH ×2 (09:00→20:24)
--- NOTE | 2017-10-03 09:13 | RADRPT ---
EXAM DATE/TIME: 10/03/2017 08:40 [facility] COMPARISON: CHEST SINGLE AP, October 01, 2017, 15:07. INDICATIONS : Evaluate for respiatory desease. MEDICAL HISTORY : achalasia of the esophagus SURGICAL HISTORY : Tubal ligation. Endoscopy with dilation. ENCOUNTER: Initial ACUITY: 4 - 6 days PAIN SCORE: Non-responsive. LOCATION: Bilateral chest FINDINGS: The heart size is normal. There is increased density at the bases bilaterally. The previously seen in creased density at the right mid and lower chest appears improved. CONCLUSION: 1. Bibasilar areas of consolidation or atelectasis a more prominent left. 2. The previously seen increased density at the right mid and lower chest appears improved suggesting that the debris filled esophagus has been emptied. Thierry Gonzales MD on October 03, 2017 at 9:10 Board Certified Radiologist. This report was verified electronically.
[2017-10-03] MEDS: SODIUM CHLORIDE 0.9% FLUSH 10 ML FLUSH IV FLUSH SCH ×2 (10:56→19:49)
[2017-10-03] MEDS: LIDOCAINE HCL 5% PATCH T-DERMAL SCH (10:56)
--- NOTE | 2017-10-03 11:34 | HHI.GIFU ---
Subjective Remarks Intubated on vent. (Kinza Schafer WIRE TESTER) Objective Vitals I&O Vital Signs Date Time Temp Pulse Resp B/P (MAP) Pulse Ox O2 Delivery O2 Flow Rate FiO2 10/03/17 10:04 97 40 10/03/17 10:04 40 10/03/17 08:33 97 40 10/03/17 06:13 100 40 10/03/17 06:00 49 10/03/17 04:00 98.4 54 16 99/50 (66) 96 10/03/17 04:00 40 10/03/17 04:00 54 10/03/17 02:00 47 10/03/17 01:56 99 40 10/03/17 00:00 51 10/03/17 00:00 98.4 51 16 106/53 (70) 100 10/03/17 00:00 40 10/02/17 22:00 52 10/02/17 21:33 100 40 10/02/17 20:00 98.5 47 16 105/51 (69) 100 10/02/17 20:00 47 10/02/17 20:00 45 10/02/17 18:00 65 10/02/17 16:00 98.9 51 16 106/53 (70) 100 10/02/17 16:00 45 10/02/17 16:00 51 10/02/17 15:00 49 10/02/17 14:34 46 10/02/17 14:00 47 10/02/17 13:00 49 10/02/17 12:19 98 40 10/02/17 12:00 45 10/02/17 12:00 51 10/02/17 12:00 98.5 51 101/57 (72) 98 I/O 10/02/17 10/02/17 10/02/17 10/03/17 10/03/17 10/03/17 07:00 15:00 23:00 07:00 15:00 23:00 Intake Total 300 ml 1200 ml 200 ml 689 ml Output Total 475 ml 800 ml 600 ml Balance -175 ml 1200 ml -600 ml 89 ml Intake Oral 0 ml IV Total 300 ml 1000 ml 200 ml 689 ml Other 200 ml Output Urine Total 475 ml 800 ml 600 ml # Bowel Movements 0 Laboratory Laboratory Tests Test 10/03/17 05:30 White Blood Count 6.1 Red Blood Count 4.32 Hemoglobin 9.8 Hematocrit 31.3 Mean Corpuscular Volume 72.5 Mean Corpuscular Hemoglobin 22.7 Mean Corpuscular Hemoglobin Concent 31.3 Red Cell Distribution Width 14.0 Platelet Count 167 Mean Platelet Volume 10.1 Neutrophils (%) (Auto) 61.3 Lymphocytes (%) (Auto) 20.6 Monocytes (%) (Auto) 10.8 Eosinophils (%) (Auto) 6.5 Basophils (%) (Auto) 0.8 Neutrophils # (Auto) 3.7 Lymphocytes # (Auto) 1.3 Monocytes # (Auto) 0.7 Eosinophils # (Auto) 0.4 Basophils # (Auto) 0.0 CBC Comment DIFF FINAL Differential Comment Blood Urea Nitrogen 7 Creatinine 0.84 Random Glucose 69 Total Protein 5.6 Albumin 2.5 Calcium Level 7.7 Phosphorus Level 2.5 Magnesium Level 2.0 Alkaline Phosphatase 63 Aspartate Amino Transf (AST/SGOT) 27 Alanine Aminotransferase (ALT/SGPT) 24 Total Bilirubin 0.2 Sodium Level 147 Potassium Level 3.5 Chloride Level 116 Carbon Dioxide Level 21.4 Anion Gap 10 Estimat Glomerular Filtration Rate 71 Date/Time Source Procedure Growth Status 10/02/17 17:00 Sputum Endotracheal Gram Stain - Final Resulted 10/02/17 17:00 Sputum Endotracheal Sputum Culture Pending Resulted Imaging Last Impressions Chest X-Ray 10/03/17 0000 Signed Impressions: Service Date/Time: Tuesday, October 03, 2017 08:40 - CONCLUSION: 1. Bibasilar areas of consolidation or atelectasis a more prominent left. 2. The previously seen increased density at the right mid and lower chest appears improved suggesting that the debris filled esophagus has been emptied. Thierry Gonzales MD Chest CT 10/02/17 0000 Signed Impressions: Service Date/Time: Monday, October 02, 2017 10:49 - CONCLUSION: Interval development of left lower lobe consolidation and compressive atelectasis/infiltrate at the right intrathoracic mid esophagus. There is also development of small bilateral pleural effusions and mild ascites. Speedy Baker MD Brain MRI 10/02/17 0000 Signed Impressions: Service Date/Time: Monday, October 02, 2017 10:15 - CONCLUSION: 1. Negative MRI of the brain with and without contrast. 2. Right maxillary and ethmoid sinus disease. Speedy Baker MD Carotid Artery Ultrasound 09/30/17 0000 Signed Impressions: Service Date/Time: Saturday, September 30, 2017 22:29 - CONCLUSION: Normal hemodynamic profile bilateral carotids. The Speedy Baker MD Head CT [id number]/29/[id number] Signed Impressions: Service Date/Time: Friday, September 29, 2017 21:17 - CONCLUSION: 1. No acute intracranial abnormality. 2. Right side predominant paranasal sinus disease. Thierry Bui MD Physical Exam HEENT: normocephalic; atraumatic; no jaundice. CHEST: CTA CARDIAC: RRR ABDOMEN: Soft, mildly distended, no hepatosplenomegaly; bowel sounds are present in all four quadrants. EXTREMITIES: No clubbing, cyanosis, or edema. SKIN: Normal; no rash; no jaundice. RAILS DEVELOPER: sedated on vent (Kinza Schafer) Assessment and Plan Assessment: (1) Obstruction of esophagus ICD Codes: K22.2 - Esophageal obstruction Status: Acute (2) Esophageal dilatation ICD Codes: K22.8 - Other specified diseases of esophagus (3) Intractable nausea and vomiting ICD Codes: R11.2 - Nausea with vomiting, unspecified Plan 52-year-old female who has had aggregating factors of dysphasia food getting stuck, nausea vomiting for the past 30 years. Patient initially had 2 EGDs with possible dilatation she thinks, no previous colonoscopy. Patient states she is drinking fluids constantly trying to clear any residue from her esophagus. Chest CT showed a large hollow structure in the posterior mediastinum and medial right chest containing a mixture of gas and particle matter probably representing markedly dilated esophagus possible mass at the level of the GE junction. hemoglobin 11.5 , PT/INR 1.1 10/01/17 s/p EGD found norberto esophagus, retained food, likely achalasia. She was intubated after procedure and reportedly aspirated during intubation. UGI series, ba swallow are pending. CXR shows consolidation. 10/02/17 d/w [facility], will do EGD and try to remove some food so she can be safely extubated. attempted to call Demetris Ramos [facility] but no answer. Spoke with daughter preethi who said she wants him to make the decisions and that she would try to contact him and have him get in touch with [facility]. per GS no surgical interventions at this time, possibly after PNA resolved. 10/03/17 s/p EGD yesterday and suction of food and fluid, revealing severely dilated esophagus c/w known achalasia. pt undergoing CPAP trials today Plan GS consult supportive care GI will sign off. please reconsult if needed. Patient was seen per myself and Dr. Carbone, note was written on his behalf (Kinza Schafer) Plan Patient was seen and examined, she is doing reasonably okay, no sign of any aspiration, patient need surgical achalasia, will sign off at this time (Markel Carbone MD) Kinza Schafer October 03, 2017 11:34 Markel Carbone MD October 03, 2017 19:57
[2017-10-03] MEDS: ONDANSETRON HCL 4 MG/2 ML VIAL IVP PRN (19:35)
[2017-10-03] MEDS: ENOXAPARIN SODIUM 40 MG/0.4 ML SYRINGE SQ SCH (20:23)
[2017-10-03] MEDS: REMOVE OLD LIDOCAINE PATCH T-DERMAL SCH (20:24)
[2017-10-04] VITALS (13 sets, daily range): BP systolic 130–160; BP diastolic 64–79; PULSE 73–110; RESP 17–22; TEMP 97.8–99.8; O2SAT 91–99
[2017-10-04] MEDS: ONDANSETRON HCL 4 MG/2 ML VIAL IVP PRN ×2 (01:59→10:38)
[2017-10-04] MEDS: AMPICILLIN-SULBACTAM INJ 3 GM in SODIUM CHLORIDE 0.9% INJ 100 ML IV SCH ×4 (03:13→21:59)
[2017-10-04] MEDS: FAMOTIDINE 20 MG/2 ML VIAL IV PUSH SCH ×2 (03:13→17:13)
[2017-10-04] MEDS: SODIUM CHLOR 0.9% 1000 ML INJ 1,000 ML IV SCH ×3 (03:59→23:59)
--- NOTE | 2017-10-04 04:12 | RADRPT ---
EXAM DATE/TIME: 10/04/2017 03:07 [facility] COMPARISON: CHEST SINGLE AP, October 03, 2017, 8:40. INDICATIONS : Short of breath. MEDICAL HISTORY : achalasia of the esophagus SURGICAL HISTORY : Tubal ligation. Endoscopy with dilation. ENCOUNTER: Subsequent ACUITY: 4 - 6 days PAIN SCORE: 0/10 LOCATION: Bilateral chest FINDINGS: A single view of the chest demonstrates improving aeration in the left base with visualization of lef t hemidiaphragm. However, worsening airspace disease in the right midlung as well as the entire lower half of the right hemithorax with possible developing effusion on the right. Heart size is normal. E ndotracheal tube has been removed.. CONCLUSION: 1. One is improving aeration in the left lung base, worsening airspace disease in the left perihilar distribution and entire right lower lung. Possible developing right-sided effusion as well. 2. Endotracheal tube has been removed Bonifacio Charles MD on October 04, 2017 at 4:09 Board Certified Radiologist. This report was verified electronically.
[2017-10-04] MEDS: RESP: ALBUTEROL 2.5 MG/IPRATROPIUM 0.5 MG NEB (SCH) NEB ×2 (04:22→09:01)
[2017-10-04 06:54] LABS: HEMATOCRIT 32.5 % (35.0-46.0); HEMOGLOBIN 10.2 GM/DL (11.6-15.3); MEAN CELL VOLUME 72.4 FL (80.0-100.0); MEAN CORPUSCULAR HEMOGLOBIN 22.7 PG (27.0-34.0); MEAN CORPUSCULAR HGB CONC 31.3 % (32.0-36.0); MEAN PLATELET VOLUME 9.8 FL (7.0-11.0); PLATELET COUNT 201 TH/MM3 (150-450); RED BLOOD COUNT 4.49 MIL/MM3 (4.00-5.30); RED CELL DISTRIBUTION WIDTH 14.3 % (11.6-17.2); WHITE BLOOD COUNT 8.2 TH/MM3 (4.0-11.0)
--- NOTE | 2017-10-04 07:31 | HHI.CCPN ---
Subjective Remarks/Hospital Course 09/30: 52-year-old lady with history of thalassemia and achalasia was admitted yesterday with right-sided neck pain and right-sided chest pain that started approximately 1 week ago. In addition patient also complaining of nausea and vomiting. Information is obtained entirely from chart since patient is intubated and there is no family available at bedside. On routine chest x-ray patient was found to have a large area of consolidation over the right side she underwent a CT chest that showed a large hollow structure in posterior mediastinum and medial right chest containing mixture of gas and particulate matter probably representing markedly distended esophagus. Patient was seen by gastroenterology service and she underwent EGD this morning. Further information was obtained from anesthesia service. The procedure was started under MAC anesthesia upon introduction of the scope in the esophagus she was found to have a megaesophagus with retained food contents. Scope was withdrawn to allow endotracheal intubation and upon withdrawal patient started coughing and aspirated. Patient was immediately intubated and the procedure was restarted. Post procedure patient remained intubated therefore CCM service was consulted for ventilator management and ICU admission. Patient was seen immediately in PACU, intubated and sedated, FiO2 of 0.4, PEEP of 5, O2 sat 100% . Case was discussed with both anesthesia and gastroenterology services. No family is present at bedside. 10/01: Patient remains sedated and intubated. No events over the night. T-max of 99.6. Urine output borderline low. Sedation is achieved with propofol and fentanyl. On 0.4 FiO2. Daughter present at bedside and she tells as the patient is a [employer]. 10/02: No events over the night. T-max of 100.1. Patient remains intubated and sedated. She becomes agitated every time sedation is decreased. Patient is a [employer]. 10/03: Patient continues on propofol and fentanyl infusion for sedation. Precedex infusion initiated to facilitate ventilator weaning today. The patient underwent EGD yesterday with removal of all foreign body/food. Chest x- ray pending this a.m. 10/04: The patient successfully passed SBT trials yesterday afternoon and was successfully extubated. The patient was given as needed ice chips which was tolerated well. The patient remains confused and required 2 point restraints for patient safety. Patient had several complaints of nausea Zofran given with resolution of symptoms. This a.m. the patient slightly lethargic, per minute but also confusion. O2 saturation 95% on 2 L nasal cannula. Objective Vital Signs Date Time Temp Pulse Resp B/P (MAP) Pulse Ox O2 Delivery O2 Flow Rate FiO2 10/04/17 06:00 93 10/04/17 04:00 99.8 18 144/71 (95) 99 10/03/17 21:17 Nasal Cannula 6.00 10/03/17 12:00 40 Intake and Output 10/04/17 10/04/17 10/05/17 08:00 16:00 00:00 Intake Total 1100 ml Output Total 710 ml Balance 390 ml Result Diagram: 10/04/17 0621 10/03/17 0530 Imaging Last Impressions Chest CT 10/02/17 0000 Signed Impressions: Service Date/Time: Monday, October 02, 2017 10:49 - CONCLUSION: Interval development of left lower lobe consolidation and compressive atelectasis/infiltrate at the right intrathoracic mid esophagus. There is also development of small bilateral pleural effusions and mild ascites. Speedy Baker MD Brain MRI 10/02/17 0000 Signed Impressions: Service Date/Time: Monday, October 02, 2017 10:15 - CONCLUSION: 1. Negative MRI of the brain with and without contrast. 2. Right maxillary and ethmoid sinus disease. Speedy Baker MD Chest X-Ray 10/01/17 0600 Signed Impressions: Service Date/Time: Sunday, October 01, 2017 05:05 - CONCLUSION: Interval development of left lower lobe consolidation. Speedy Baker MD Carotid Artery Ultrasound 09/30/17 0000 Signed Impressions: Service Date/Time: Saturday, September 30, 2017 22:29 - CONCLUSION: Normal hemodynamic profile bilateral carotids. The Speedy Baker MD Head CT [id number]/[id number] Signed Impressions: Service Date/Time: Friday, September 29, 2017 21:17 - CONCLUSION: 1. No acute intracranial abnormality. 2. Right side predominant paranasal sinus disease. Thierry Bui MD Objective Remarks General -This is a well-developed well-nourished middle-aged lady, lethargic but easily arousable responding to command HEENT - pupils equal, reactive, sclerae anicteric, neck supple, no rigidity, no JVD, on 2 L nasal cannula CV - regular S1 and S2, no murmurs, rubs or gallops Chest - clear b/l, good air entry, no wheezes Abdomen - soft, slightly distended, non-tender, BS present Extremities - warm and well-perfused, no edema, + peripheral pulses Neuro -GCS 14. Intermittent bouts of confusion slightly lethargic. Moves extremities 4. A/P Assessment and Plan ASSESSMENT 1. Achalasia with megaesophagus and retained food contents status post EGD 2. Acute respiratory insufficiency 3. Possible aspiration pneumonia 4. History of thalassemia PLAN 1. Aggressive pulmonary toileting, incentive spirometry 2. Currently on 2 L nasal cannula per minute continue to wean to maintain O2 saturation of 92% 3. Discontinue all sedative type medications to include narcotic 4. Continue Reglan, Zofran for nausea 5. Continue Unasyn 6. GI following. Defer recommendations regarding clear liquid diet 7. Ice chips PRN 8. GI and DVT prophylaxis 9. [employer] 10. Follow up sputum cultures- continue antibiotics Dispo: Level 2 follow up Discussed with DESKTOP ANALYST at bedside. Plan transfer to [facility] in a.m.. Planned transfer to [facility] floor when bed becomes available Physician Deana Galindo MD October 04, 2017 07:31
[2017-10-04 07:35] LABS: CREATININE 0.7 MG/DL (0.50-1.00)
[2017-10-04 07:36] LABS: BICARBONATE 23.4 MEQ/L (21.0-32.0); CALCIUM 8.1 MG/DL (8.5-10.1)
[2017-10-04] MEDS: CHLORHEXIDINE 0.12% (ORAL KIT) 15 ML CUP MT SCH ×2 (07:55→20:00)
[2017-10-04] MEDS: INSULIN ASPART SUPPLEMENTAL SCALE SQ SCH ×4 (07:56→21:00)
[2017-10-04] MEDS: DOCUSATE SODIUM 50 MG/SENNA 8.6 MG TAB PO SCH ×2 (09:00→21:00)
[2017-10-04] MEDS: LIDOCAINE HCL 5% PATCH T-DERMAL SCH (09:08)
[2017-10-04] MEDS: SODIUM CHLORIDE 0.9% FLUSH 10 ML FLUSH IV FLUSH SCH ×2 (09:09→21:00)
[2017-10-04] MEDS: REMOVE OLD LIDOCAINE PATCH T-DERMAL SCH (21:00)
[2017-10-04] MEDS: ENOXAPARIN SODIUM 40 MG/0.4 ML SYRINGE SQ SCH (21:58)
[2017-10-05 04:15] VITALS: BP 177/76; PULSE 67; RESP 20; TEMP 97.6; O2SAT 93
[2017-10-05] MEDS: AMPICILLIN-SULBACTAM INJ 3 GM in SODIUM CHLORIDE 0.9% INJ 100 ML IV SCH ×4 (04:58→22:04)
[2017-10-05] MEDS: ONDANSETRON HCL 4 MG/2 ML VIAL IVP PRN ×2 (04:59→19:30)
[2017-10-05] MEDS: FAMOTIDINE 20 MG/2 ML VIAL IV PUSH SCH ×2 (04:59→16:50)
[2017-10-05] MEDS: INSULIN ASPART SUPPLEMENTAL SCALE SQ SCH ×4 (08:00→21:00)
[2017-10-05] MEDS: CHLORHEXIDINE 0.12% (ORAL KIT) 15 ML CUP MT SCH ×2 (08:00→20:00)
[2017-10-05 08:15] VITALS: BP 176/86; PULSE 77; RESP 20; TEMP 98.3; O2SAT 99
[2017-10-05] MEDS: LIDOCAINE HCL 5% PATCH T-DERMAL SCH (09:00)
[2017-10-05] MEDS: DOCUSATE SODIUM 50 MG/SENNA 8.6 MG TAB PO SCH ×3 (09:00→22:19)
[2017-10-05] MEDS: SODIUM CHLORIDE 0.9% FLUSH 10 ML FLUSH IV FLUSH SCH ×2 (09:29→22:06)
[2017-10-05 09:52] LABS: HEMATOCRIT 32.2 % (35.0-46.0); HEMOGLOBIN 10.1 GM/DL (11.6-15.3); MEAN CORPUSCULAR HEMOGLOBIN 22.6 PG (27.0-34.0); MEAN CORPUSCULAR HGB CONC 31.4 % (32.0-36.0); MEAN PLATELET VOLUME 10.3 FL (7.0-11.0); PLATELET COUNT 214 TH/MM3 (150-450); RED BLOOD COUNT 4.48 MIL/MM3 (4.00-5.30); RED CELL DISTRIBUTION WIDTH 14.1 % (11.6-17.2)
[2017-10-05 10:23] LABS: BICARBONATE 25.7 MEQ/L (21.0-32.0); CALCIUM 8.6 MG/DL (8.5-10.1); CREATININE 0.67 MG/DL (0.50-1.00); MAGNESIUM 2.4 MG/DL (1.5-2.5); PHOSPHORUS 1.8 MG/DL (2.5-4.9)
[2017-10-05 11:34] VITALS: BP_SYST 164; BP_SYST 178; BP_DIAS 85; BP_DIAS 90; PULSE 70; RESP 20; TEMP 97.9; O2SAT 97
[2017-10-05] MEDS: ENALAPRILAT 1.25 MG/ML VIAL IV PUSH PRN ×2 (12:34→22:04)
[2017-10-05 13:18] VITALS: O2SAT 99
--- NOTE | 2017-10-05 15:38 | HHI.PR ---
Subjective Remarks Ongoing recovery from pneumonia. Plan for esophageal dilation after respiratory status stabilized. Patient's respiratory status is improving. She has complaints of hunger and nausea today. Objective Vital Signs Date Time Temp Pulse Resp B/P (MAP) Pulse Ox O2 Delivery O2 Flow Rate FiO2 10/05/17 13:18 99 Simple Mask 7.00 10/05/17 11:34 97.9 70 20 178/90 (119) 97 164/85 (111) 10/05/17 08:15 98.3 77 20 176/86 (116) 99 10/05/17 04:15 97.6 67 20 177/76 (109) 93 10/04/17 23:35 98.0 73 20 156/75 (102) 94 10/04/17 21:24 93 Simple Mask 6.00 10/04/17 20:00 97.8 87 22 136/78 (97) 93 10/04/17 17:26 95 Nasal Cannula 6.00 10/04/17 16:19 98.7 78 20 141/70 (93) 91 I/O 10/04/17 10/04/17 10/04/17 10/05/17 10/05/17 10/05/17 06:59 14:59 22:59 06:59 14:59 22:59 Intake Total 1100 ml 480 ml Output Total 710 ml Balance 390 ml 480 ml Intake Oral 0 ml IV Total 1100 ml 480 ml Output Urine Total 700 ml Emesis 10 ml # Bowel Movements 0 Result Diagram: 10/05/17 0830 10/05/17 0830 Objective Remarks GENERAL: NAD, A&Ox3 HEAD: Normocephalic. NECK: Supple, trachea midline. No lymphadenopathy. EYES: No scleral icterus. No injection or drainage. CARDIOVASCULAR: Regular rate and rhythm without murmurs, gallops, or rubs. RESPIRATORY: Breath sounds equal bilaterally. No accessory muscle use. GASTROINTESTINAL: Abdomen soft, non-tender, nondistended. MUSCULOSKELETAL: No cyanosis, or edema. SKIN: Warm and dry. NEURO: No focal neurological deficitis. A/P Problem List: (1) Muscle spasm ICD Code: M62.838 - Other muscle spasm Status: Acute (2) Intractable nausea and vomiting ICD Code: R11.2 - Nausea with vomiting, unspecified (3) Obstruction of esophagus ICD Code: K22.2 - Esophageal obstruction Status: Acute Assessment and Plan 52-year-old female admitted secondary to esophageal obstruction/stricture Achalasia Retained food bolus Esophageal stricture Continue Reglan for nausea Continue Zofran for nausea GI following Plan for esophageal dilation Advance to clear liquid diet Aspiration pneumonia Acute respiratory insufficiency Continue oxygen as needed Continue Unasyn Incentive spirometry Continue pulmonary toilet Thalassemia follow CBC DVT prophylaxis SCDs Other Patient is of the Taoism yazdanism Zhao Carlton MD October 05, 2017 15:38
[2017-10-05 16:23] VITALS: BP 174/77; PULSE 76; RESP 20; TEMP 97.6; O2SAT 95
[2017-10-05] MEDS: SODIUM CHLOR 0.9% 1000 ML INJ 1,000 ML IV SCH ×2 (19:59→22:07)
[2017-10-05 20:00] VITALS: BP 187/83; PULSE 70; RESP 18; TEMP 97.3; O2SAT 97
[2017-10-05] MEDS: REMOVE OLD LIDOCAINE PATCH T-DERMAL SCH (21:00)
[2017-10-05] MEDS: ENOXAPARIN SODIUM 40 MG/0.4 ML SYRINGE SQ SCH (22:03)
[2017-10-06] VITALS (7 sets, daily range): BP systolic 126–181; BP diastolic 69–97; PULSE 55–70; RESP 18–22; TEMP 97.8–98.5; O2SAT 96–100
[2017-10-06] MEDS: AMPICILLIN-SULBACTAM INJ 3 GM in SODIUM CHLORIDE 0.9% INJ 100 ML IV SCH ×4 (04:35→21:50)
[2017-10-06] MEDS: FAMOTIDINE 20 MG/2 ML VIAL IV PUSH SCH (04:36)
[2017-10-06] MEDS: SODIUM CHLOR 0.9% 1000 ML INJ 1,000 ML IV SCH ×2 (05:59→18:45)
[2017-10-06] MEDS: INSULIN ASPART SUPPLEMENTAL SCALE SQ SCH ×4 (08:00→21:00)
[2017-10-06] MEDS: CHLORHEXIDINE 0.12% (ORAL KIT) 15 ML CUP MT SCH ×2 (08:00→20:00)
[2017-10-06] MEDS: SODIUM CHLORIDE 0.9% FLUSH 10 ML FLUSH IV FLUSH SCH ×2 (08:11→21:00)
[2017-10-06] MEDS: DOCUSATE SODIUM 50 MG/SENNA 8.6 MG TAB PO SCH ×2 (08:11→21:00)
[2017-10-06] MEDS: LIDOCAINE HCL 5% PATCH T-DERMAL SCH (08:14)
[2017-10-06] MEDS: ENALAPRILAT 1.25 MG/ML VIAL IV PUSH PRN ×2 (08:15→21:50)
[2017-10-06] MEDS ORDERED: cloNIDine HCL 0.2 MG/24 HR PATCH T-DERMAL SCH (11:00)
[2017-10-06] MEDS: cloNIDine HCL 0.1 MG TAB PO PRN (12:34)
--- NOTE | 2017-10-06 13:51 | RADRPT ---
EXAM DATE/TIME: 10/06/2017 13:14 [place] COMPARISON: CHEST SINGLE AP, October 04, 2017, 3:07. INDICATIONS : Short of breath. MEDICAL HISTORY : achalasia of the esophagus SURGICAL HISTORY : Tubal ligation. ENCOUNTER: Subsequent ACUITY: 1 week PAIN SCORE: 0/10 LOCATION: Bilateral chest FINDINGS: Persistent airspace disease right and left lungs with minimal improvement. No pneumothorax. No sign ificant pleural effusion. Mild compensated cardiomegaly. CONCLUSION: Persistent airspace disease with minimal improvement. Viktor Hernandez MD FACR on October 06, 2017 at 13:49 Board Certified Radiologist. This report was verified electronically.
--- NOTE | 2017-10-06 14:14 | HHI.PR ---
Subjective Remarks Ongoing recovery from pneumonia. ABG and chest x-ray ordered today show no acute pathology changes. Plan for esophageal dilation after respiratory status stabilized. Nausea is still present. Objective Vital Signs Date Time Temp Pulse Resp B/P (MAP) Pulse Ox O2 Delivery O2 Flow Rate FiO2 10/06/17 12:00 97.8 61 19 181/90 (120) 97 10/06/17 08:00 98.4 63 19 170/97 (121) 97 10/06/17 04:00 98.2 65 20 171/78 (109) 97 10/06/17 00:00 98.5 70 22 158/69 (98) 98 10/05/17 20:00 97.3 70 18 187/83 (117) 97 10/05/17 16:23 97.6 76 20 174/77 (109) 95 I/O 10/05/17 10/05/17 10/05/17 10/06/17 10/06/17 10/06/17 07:00 15:00 23:00 07:00 15:00 23:00 Intake Total 600 ml 420 ml Balance 600 ml 420 ml Intake Oral 600 ml 220 ml IV Total 200 ml # Voids 1 2 # Bowel Movements 0 0 Result Diagram: 10/05/1730 10/05/17 0830 Objective Remarks GENERAL: NAD, A&Ox3 HEAD: Normocephalic. NECK: Supple, trachea midline. No lymphadenopathy. EYES: No scleral icterus. No injection or drainage. CARDIOVASCULAR: Regular rate and rhythm without murmurs, gallops, or rubs. RESPIRATORY: Breath sounds equal bilaterally. No accessory muscle use. GASTROINTESTINAL: Abdomen soft, non-tender, nondistended. MUSCULOSKELETAL: No cyanosis, or edema. SKIN: Warm and dry. NEURO: No focal neurological deficitis. A/P Problem List: (1) Muscle spasm ICD Code: M62.838 - Other muscle spasm Status: Acute (2) Intractable nausea and vomiting ICD Code: R11.2 - Nausea with vomiting, unspecified (3) Obstruction of esophagus ICD Code: K22.2 - Esophageal obstruction Status: Acute Assessment and Plan 52-year-old female admitted secondary to esophageal obstruction/stricture Continue to treat pneumonia. Respiratory support as needed. Patient remains nauseous. Surgery following. Achalasia Retained food bolus Esophageal stricture Continue Reglan for nausea Continue Zofran for nausea GI following Plan for esophageal dilation Advance to clear liquid diet Aspiration pneumonia Acute respiratory insufficiency Continue oxygen as needed Continue Unasyn Incentive spirometry Continue pulmonary toilet Thalassemia follow CBC DVT prophylaxis SCDs Other Patient is of the Yazidism voodoo Zhao Carlton MD October 06, 2017 14:14
[2017-10-06] MEDS ORDERED: METOPROLOL TARTRATE 25 MG TAB PO ONE (18:15)
[2017-10-06] MEDS: REMOVE OLD LIDOCAINE PATCH T-DERMAL SCH (21:00)
[2017-10-06] MEDS: FAMOTIDINE 20 MG TAB PO SCH (21:51)
[2017-10-06] MEDS: ENOXAPARIN SODIUM 40 MG/0.4 ML SYRINGE SQ SCH (21:51)
[2017-10-07] VITALS (8 sets, daily range): BP systolic 169–185; BP diastolic 81–91; PULSE 53–62; RESP 17–18; TEMP 97.3–98.8; O2SAT 94–98
[2017-10-07] MEDS: ONDANSETRON HCL 4 MG/2 ML VIAL IVP PRN ×2 (01:14→09:30)
[2017-10-07] MEDS: AMPICILLIN-SULBACTAM INJ 3 GM in SODIUM CHLORIDE 0.9% INJ 100 ML IV SCH ×4 (04:00→22:37)
[2017-10-07] MEDS: SODIUM CHLOR 0.9% 1000 ML INJ 1,000 ML IV SCH ×2 (06:40→18:35)
[2017-10-07] MEDS: CHLORHEXIDINE 0.12% (ORAL KIT) 15 ML CUP MT SCH ×2 (08:00→20:00)
[2017-10-07] MEDS: INSULIN ASPART SUPPLEMENTAL SCALE SQ SCH ×4 (08:00→21:00)
[2017-10-07 08:23] LABS: AUTOMATED NEUTROPHIL # 4.6 TH/MM3 (1.8-7.7); BASOPHIL % 0.6 % (0.0-2.0); EOSINOPHIL # 0.1 TH/MM3 (0-0.4); HEMATOCRIT 32.2 % (35.0-46.0); LYMPH % 18.3 % (9.0-44.0); LYMPHOCYTE # 1.2 TH/MM3 (1.0-4.8); MEAN CELL VOLUME 72.5 FL (80.0-100.0); MEAN CORPUSCULAR HEMOGLOBIN 22.7 PG (27.0-34.0); MEAN CORPUSCULAR HGB CONC 31.3 % (32.0-36.0); MONO % 9.6 % (0.0-8.0); MONOCYTE # 0.6 TH/MM3 (0-0.9); NEUT % 69.5 % (16.0-70.0); PLATELET COUNT 196 TH/MM3 (150-450); RED BLOOD COUNT 4.44 MIL/MM3 (4.00-5.30); RED CELL DISTRIBUTION WIDTH 13.8 % (11.6-17.2); WHITE BLOOD COUNT 6.6 TH/MM3 (4.0-11.0)
[2017-10-07 08:42] LABS: ALT (GPT) 48 U/L (10-53); AST (GOT) 39 U/L (15-37); BLOOD UREA NITROGEN 9 MG/DL (7-18); CALCIUM 7.8 MG/DL (8.5-10.1); CHLORIDE 105 MEQ/L (98-107); CREATININE 0.61 MG/DL (0.50-1.00); GLOMERULAR FILTRATION RATE 103 ML/MIN (>89); GLUCOSE,RANDOM 108 MG/DL (74-106); MAGNESIUM 2.2 MG/DL (1.5-2.5); PHOSPHORUS 1.6 MG/DL (2.5-4.9); SODIUM (NA) 141 MEQ/L (136-145)
[2017-10-07] MEDS ORDERED: PILL SPLITTER OTHER PRN (08:45)
[2017-10-07 08:51] LABS: ALKALINE PHOSPHATASE 90 U/L (45-117); TOTAL BILIRUBIN ADULT 0.4 MG/DL (0.2-1.0); TOTAL PROTEIN 6.4 GM/DL (6.4-8.2)
[2017-10-07] MEDS: DOCUSATE SODIUM 50 MG/SENNA 8.6 MG TAB PO SCH ×2 (09:00→22:35)
[2017-10-07] MEDS: SODIUM CHLORIDE 0.9% FLUSH 10 ML FLUSH IV FLUSH SCH ×2 (09:00→22:35)
[2017-10-07] MEDS: FAMOTIDINE 20 MG TAB PO SCH ×2 (09:27→22:34)
[2017-10-07] MEDS: METOPROLOL TARTRATE 25 MG TAB PO SCH ×2 (09:27→22:34)
[2017-10-07] MEDS: LIDOCAINE HCL 5% PATCH T-DERMAL SCH (09:30)
--- NOTE | 2017-10-07 11:24 | HHI.PR ---
Subjective Remarks Improved blood pressures with beta [place]. Respiratory status shows improvement today. Nausea present. Objective Vital Signs Date Time Temp Pulse Resp B/P (MAP) Pulse Ox O2 Delivery O2 Flow Rate FiO2 10/07/17 08:00 98.0 62 17 174/91 (118) 98 10/07/17 05:00 97.5 61 18 169/81 (110) 96 10/06/17 23:00 97.9 60 18 126/92 (103) 96 10/06/17 20:00 98.3 63 18 168/85 (112) 96 10/06/17 16:00 98.1 55 18 179/86 (117) 100 10/06/17 12:00 97.8 61 19 181/90 (120) 97 I/O 10/06/17 10/06/17 10/06/17 10/07/17 10/07/17 10/07/17 07:00 15:00 23:00 07:00 15:00 23:00 Intake Total 420 ml 780 ml Output Total 700 ml Balance 420 ml 80 ml Intake Oral 220 ml 780 ml IV Total 200 ml Output Urine Total 700 ml # Voids 2 2 4 # Bowel Movements 0 0 Result Diagram: 10/07/17 0640 10/07/17 0640 Objective Remarks GENERAL: NAD, A&Ox3 HEAD: Normocephalic. NECK: Supple, trachea midline. No lymphadenopathy. EYES: No scleral icterus. No injection or drainage. CARDIOVASCULAR: Regular rate and rhythm without murmurs, gallops, or rubs. RESPIRATORY: Breath sounds equal bilaterally. No accessory muscle use. GASTROINTESTINAL: Abdomen soft, non-tender, nondistended. MUSCULOSKELETAL: No cyanosis, or edema. SKIN: Warm and dry. NEURO: No focal neurological deficitis. A/P Problem List: (1) Muscle spasm ICD Code: M62.838 - Other muscle spasm Status: Acute (2) Intractable nausea and vomiting ICD Code: R11.2 - Nausea with vomiting, unspecified (3) Obstruction of esophagus ICD Code: K22.2 - Esophageal obstruction Status: Acute Assessment and Plan 52-year-old female admitted secondary to esophageal obstruction/stricture Improvements in respiratory status today. Nausea present, antiemetics continued. BP improving, continue to monitor and adjust. Achalasia Retained food bolus Esophageal stricture Continue Reglan for nausea Continue Zofran for nausea GI following Plan for esophageal dilation Advance to clear liquid diet Aspiration pneumonia Acute respiratory insufficiency Continue oxygen as needed Continue Unasyn Incentive spirometry Continue pulmonary toilet Thalassemia follow CBC DVT prophylaxis SCDs Other Patient is of the Adventism gnosticist Zhao Carlton MD October 07, 2017 11:24
[2017-10-07] MEDS: POTASSIUM CHLOR 20 MEQ PREMIX 100 ML IV SCH ×2 (12:02→13:59)
[2017-10-07] MEDS: ENALAPRILAT 1.25 MG/ML VIAL IV PUSH PRN (12:56)
[2017-10-07] MEDS: REMOVE OLD LIDOCAINE PATCH T-DERMAL SCH (21:00)
[2017-10-07] MEDS: ENOXAPARIN SODIUM 40 MG/0.4 ML SYRINGE SQ SCH (22:34)
[2017-10-08] VITALS (7 sets, daily range): BP systolic 154–174; BP diastolic 74–84; PULSE 54–65; RESP 16–21; TEMP 97.6–98.1; O2SAT 92–98
[2017-10-08] MEDS: AMPICILLIN-SULBACTAM INJ 3 GM in SODIUM CHLORIDE 0.9% INJ 100 ML IV SCH ×4 (05:32→22:05)
[2017-10-08] MEDS: SODIUM CHLOR 0.9% 1000 ML INJ 1,000 ML IV SCH ×2 (05:36→16:36)
[2017-10-08] MEDS: INSULIN ASPART SUPPLEMENTAL SCALE SQ SCH ×2 (07:55→12:00)
[2017-10-08] MEDS: CHLORHEXIDINE 0.12% (ORAL KIT) 15 ML CUP MT SCH ×2 (08:00→20:00)
[2017-10-08 08:17] LABS: AUTOMATED NEUTROPHIL # 4.8 TH/MM3 (1.8-7.7); BASOPHIL % 0.6 % (0.0-2.0); EOSINOPHIL # 0.3 TH/MM3 (0-0.4); EOSINOPHIL % 3.9 % (0.0-4.0); HEMATOCRIT 35.8 % (35.0-46.0); HEMOGLOBIN 11.2 GM/DL (11.6-15.3); LYMPH % 21.7 % (9.0-44.0); LYMPHOCYTE # 1.6 TH/MM3 (1.0-4.8); MEAN CELL VOLUME 72.1 FL (80.0-100.0); MEAN CORPUSCULAR HEMOGLOBIN 22.6 PG (27.0-34.0); MEAN CORPUSCULAR HGB CONC 31.4 % (32.0-36.0); MEAN PLATELET VOLUME 9.4 FL (7.0-11.0); MONO % 8.2 % (0.0-8.0); MONOCYTE # 0.6 TH/MM3 (0-0.9); NEUT % 65.6 % (16.0-70.0); PLATELET COUNT 219 TH/MM3 (150-450); RED BLOOD COUNT 4.97 MIL/MM3 (4.00-5.30); RED CELL DISTRIBUTION WIDTH 13.6 % (11.6-17.2); WHITE BLOOD COUNT 7.3 TH/MM3 (4.0-11.0)
[2017-10-08 08:30] LABS: ALBUMIN 3.1 GM/DL (3.4-5.0); AST (GOT) 39 U/L (15-37); BICARBONATE 26.8 MEQ/L (21.0-32.0); BLOOD UREA NITROGEN 7 MG/DL (7-18); CALCIUM 8.1 MG/DL (8.5-10.1); CHLORIDE 106 MEQ/L (98-107); CREATININE 0.71 MG/DL (0.50-1.00); GLOMERULAR FILTRATION RATE 86 ML/MIN (>89); GLUCOSE,RANDOM 112 MG/DL (74-106); SODIUM (NA) 142 MEQ/L (136-145)
[2017-10-08 08:33] LABS: ALKALINE PHOSPHATASE 92 U/L (45-117); ALT (GPT) 54 U/L (10-53); TOTAL BILIRUBIN ADULT 0.4 MG/DL (0.2-1.0); TOTAL PROTEIN 6.7 GM/DL (6.4-8.2)
[2017-10-08] MEDS ORDERED: POTASSIUM CHLOR 20 MEQ PREMIX 100 ML IV SCH (08:45)
[2017-10-08] MEDS: DOCUSATE SODIUM 50 MG/SENNA 8.6 MG TAB PO SCH ×2 (09:00→22:04)
[2017-10-08] MEDS: SODIUM CHLORIDE 0.9% FLUSH 10 ML FLUSH IV FLUSH SCH ×2 (09:00→22:04)
[2017-10-08] MEDS: LIDOCAINE HCL 5% PATCH T-DERMAL SCH (09:00)
[2017-10-08] MEDS: METOPROLOL TARTRATE 25 MG TAB PO SCH ×2 (09:28→22:04)
[2017-10-08] MEDS: FAMOTIDINE 20 MG TAB PO SCH ×2 (09:28→22:04)
[2017-10-08] MEDS ORDERED: diphenhydrAMINE HCL ELIXIR 12.5 MG/5 ML CUP PO PRN (10:15)
[2017-10-08] MEDS ORDERED: cloNIDine HCL 0.2 MG/24 HR PATCH T-DERMAL SCH (11:00)
[2017-10-08] MEDS ORDERED: POTASSIUM CHLORIDE 20 MEQ PWD PACKET PO ONE (11:00)
--- NOTE | 2017-10-08 16:03 | HHI.PR ---
Subjective Remarks Respiratory status improved. Patient is now weaned off oxygen on room air. She should be respiratory hanna, stable for any surgical intervention at this time. Blood pressures are not yet fully controlled. Further adjustments are being made. Nausea has improved today. Objective Vital Signs Date Time Temp Pulse Resp B/P (MAP) Pulse Ox O2 Delivery O2 Flow Rate FiO2 10/08/17 12:00 98.0 56 16 174/78 (110) 96 10/08/17 08:00 97.8 63 16 172/76 (108) 94 10/08/17 04:00 98.1 65 16 159/74 (102) 92 10/08/17 00:00 97.8 60 17 167/83 (111) 95 10/07/17 20:00 98.2 62 18 185/91 (122) 98 I/O 10/07/17 10/07/17 10/07/17 10/08/17 10/08/17 10/08/17 07:00 15:00 23:00 07:00 15:00 23:00 Intake Total 1240 ml Balance 1240 ml Intake Oral 1240 ml # Voids 4 7 # Bowel Movements 1 Result Diagram: 10/08/1731 10/08/17 0731 Objective Remarks GENERAL: NAD, A&Ox3 HEAD: Normocephalic. NECK: Supple, trachea midline. No lymphadenopathy. EYES: No scleral icterus. No injection or drainage. CARDIOVASCULAR: Regular rate and rhythm without murmurs, gallops, or rubs. RESPIRATORY: Breath sounds equal bilaterally. No accessory muscle use. GASTROINTESTINAL: Abdomen soft, non-tender, nondistended. MUSCULOSKELETAL: No cyanosis, or edema. SKIN: Warm and dry. NEURO: No focal neurological deficitis. A/P Problem List: (1) Muscle spasm ICD Code: M62.838 - Other muscle spasm Status: Acute (2) Intractable nausea and vomiting ICD Code: R11.2 - Nausea with vomiting, unspecified (3) Obstruction of esophagus ICD Code: K22.2 - Esophageal obstruction Status: Acute Assessment and Plan 52-year-old female admitted secondary to esophageal obstruction/stricture Respiratory status continues to improve. Patient is now on room air. Her breathing function is back to prior baseline. Nausea is improved today. Blood pressure is not yet controlled. Clonidine patch added. Achalasia Retained food bolus Esophageal stricture Continue Reglan for nausea Continue Zofran for nausea GI following Plan for esophageal dilation Advance to clear liquid diet Aspiration pneumonia Acute respiratory insufficiency Off oxygen Improving daily Continue Unasyn Incentive spirometry Continue pulmonary toilet Hypertension Increase to metoprolol 25 mg p.o. twice daily Start clonidine patch Continue as needed treatments No changes to other blood pressure treatments Thalassemia follow CBC DVT prophylaxis SCDs Other Patient is of the Nondenominational christianity Zhao Carlton MD October 08, 2017 16:03
[2017-10-08] MEDS: REMOVE OLD LIDOCAINE PATCH T-DERMAL SCH (21:00)
[2017-10-08] MEDS: ENOXAPARIN SODIUM 40 MG/0.4 ML SYRINGE SQ SCH (22:05)
[2017-10-09] VITALS (8 sets, daily range): BP systolic 154–187; BP diastolic 78–88; PULSE 49–69; RESP 18–20; TEMP 97.7–98.2; O2SAT 94–99
[2017-10-09] MEDS: cloNIDine HCL 0.1 MG TAB PO PRN (00:56)
[2017-10-09] MEDS: AMPICILLIN-SULBACTAM INJ 3 GM in SODIUM CHLORIDE 0.9% INJ 100 ML IV SCH ×2 (04:31→08:46)
[2017-10-09] MEDS: SODIUM CHLOR 0.9% 1000 ML INJ 1,000 ML IV SCH ×2 (04:33→21:10)
[2017-10-09 07:37] LABS: AUTOMATED NEUTROPHIL # 4.2 TH/MM3 (1.8-7.7); BASOPHIL % 0.5 % (0.0-2.0); EOSINOPHIL # 0.3 TH/MM3 (0-0.4); EOSINOPHIL % 5.1 % (0.0-4.0); HEMATOCRIT 38.6 % (35.0-46.0); HEMOGLOBIN 12.2 GM/DL (11.6-15.3); LYMPH % 19.4 % (9.0-44.0); LYMPHOCYTE # 1.3 TH/MM3 (1.0-4.8); MEAN CORPUSCULAR HEMOGLOBIN 22.4 PG (27.0-34.0); MEAN CORPUSCULAR HGB CONC 31.5 % (32.0-36.0); MEAN PLATELET VOLUME 9.2 FL (7.0-11.0); MONO % 9.8 % (0.0-8.0); MONOCYTE # 0.6 TH/MM3 (0-0.9); NEUT % 65.2 % (16.0-70.0); PLATELET COUNT 237 TH/MM3 (150-450); RED BLOOD COUNT 5.43 MIL/MM3 (4.00-5.30); RED CELL DISTRIBUTION WIDTH 13.7 % (11.6-17.2); WHITE BLOOD COUNT 6.4 TH/MM3 (4.0-11.0)
--- NOTE | 2017-10-09 07:40 | HHI.PR ---
Subjective Subjective Notes Patient is in her room in bed without symptoms or complaints. Objective Vitals/I&O Vital Signs Date Time Temp Pulse Resp B/P (MAP) Pulse Ox O2 Delivery O2 Flow Rate FiO2 10/09/17 06:27 97.8 56 18 154/78 (103) 99 10/05/17 13:18 Simple Mask 7.00 Labs Laboratory Tests Test 10/09/17 06:54 Date/Time Source Procedure Growth Status 10/02/17 17:00 Sputum Endotracheal Gram Stain - Final Complete 10/02/17 17:00 Sputum Endotracheal Sputum Culture - Final LIGHT GROWTH NORMAL RESPIRATORY LANE Complete Narrative Exam Abdomen is soft and nondistended nontender. Small tiny healed intra-umbilical scar from tubal ligation. A/P Assessment and Plan Distal esophageal stricture. Prior workup consistent with achalasia. Endoscopy during this hospitalization removing food and liquid from the esophagus. Upper endoscope able to be passed through the GE junction. Plan I discussed with the patient laparoscopic Heller myotomy with partial fundoplication. The procedure in detail plus risks of bleeding infection injury to intra-abdominal contents including liver spleen esophagus stomach possible open surgery DVT pulmonary embolus and expectations for recovery. We will try to get the surgery scheduled for tomorrow afternoon. Patient denies taking chronic blood thinning medications or any allergies to any medications. She expresses understanding of her condition and plans for surgical procedure. Kevyn Trinh MD October 09, 2017 07:40
[2017-10-09] MEDS ORDERED: ceFAZolin 2 GM PREMIX 50 ML IV SCH (07:45)
[2017-10-09 08:02] LABS: ALBUMIN 3.3 GM/DL (3.4-5.0); ALT (GPT) 52 U/L (10-53); AST (GOT) 30 U/L (15-37); BICARBONATE 29.5 MEQ/L (21.0-32.0); BLOOD UREA NITROGEN 6 MG/DL (7-18); CALCIUM 8.7 MG/DL (8.5-10.1); CHLORIDE 104 MEQ/L (98-107); CREATININE 0.79 MG/DL (0.50-1.00); GLOMERULAR FILTRATION RATE 76 ML/MIN (>89); GLUCOSE,RANDOM 101 MG/DL (74-106); SODIUM (NA) 140 MEQ/L (136-145)
[2017-10-09 08:04] LABS: ALKALINE PHOSPHATASE 91 U/L (45-117); TOTAL BILIRUBIN ADULT 0.4 MG/DL (0.2-1.0)
[2017-10-09] MEDS: LIDOCAINE HCL 5% PATCH T-DERMAL SCH (08:46)
[2017-10-09] MEDS: SODIUM CHLORIDE 0.9% FLUSH 10 ML FLUSH IV FLUSH SCH ×2 (08:46→21:11)
[2017-10-09] MEDS: FAMOTIDINE 20 MG TAB PO SCH ×2 (08:46→21:11)
[2017-10-09] MEDS: METOPROLOL TARTRATE 25 MG TAB PO SCH ×2 (08:46→21:11)
[2017-10-09] MEDS: DOCUSATE SODIUM 50 MG/SENNA 8.6 MG TAB PO SCH ×2 (08:47→21:11)
[2017-10-09] MEDS: CHLORHEXIDINE 0.12% (ORAL KIT) 15 ML CUP MT SCH ×2 (08:51→20:00)
--- NOTE | 2017-10-09 14:48 | HHI.PR ---
Subjective Remarks Follow-up achalasia. Tolerating clear liquid diet agreeing with surgical intervention tomorrow. Seen with family discussed with nursing Objective Vitals Vital Signs Date Time Temp Pulse Resp B/P (MAP) Pulse Ox O2 Delivery O2 Flow Rate FiO2 10/09/17 13:06 54 10/09/17 12:41 98.2 56 20 156/88 (110) 96 10/09/17 08:06 97.7 57 20 173/88 (116) 96 10/09/17 06:27 97.8 56 18 154/78 (103) 99 10/09/17 00:00 98.1 54 18 187/84 (118) 96 10/08/17 23:00 57 10/08/17 20:00 97.6 55 21 160/84 (109) 98 10/08/17 16:00 97.8 54 16 154/76 (102) 96 I/O 10/08/17 10/08/17 10/08/17 10/09/17 10/09/17 10/09/17 07:00 15:00 23:00 07:00 15:00 23:00 Intake Total 1240 ml Balance 1240 ml Intake Oral 1240 ml # Voids 7 # Bowel Movements 1 Result Diagram: 10/09/17 0654 10/09/17 0654 Imaging Last Impressions Chest X-Ray 10/06/17 0000 Signed Impressions: Service Date/Time: Friday, October 06, 2017 13:14 - CONCLUSION: Persistent airspace disease with minimal improvement. Viktor Hernandez MD FACR Chest CT 10/02/17 0000 Signed Impressions: Service Date/Time: Monday, October 02, 2017 10:49 - CONCLUSION: Interval development of left lower lobe consolidation and compressive atelectasis/infiltrate at the right intrathoracic mid esophagus. There is also development of small bilateral pleural effusions and mild ascites. Speedy Baker MD Brain MRI 10/02/17 0000 Signed Impressions: Service Date/Time: Monday, October 02, 2017 10:15 - CONCLUSION: 1. Negative MRI of the brain with and without contrast. 2. Right maxillary and ethmoid sinus disease. Speedy Baker MD Carotid Artery Ultrasound 09/30/17 0000 Signed Impressions: Service Date/Time: Saturday, September 30, 2017 22:29 - CONCLUSION: Normal hemodynamic profile bilateral carotids. The Speedy Baker MD Head CT [id number] Signed Impressions: Service Date/Time: Friday, September 29, 2017 21:17 - CONCLUSION: 1. No acute intracranial abnormality. 2. Right side predominant paranasal sinus disease. Thierry Bui MD Objective Remarks GENERAL: NAD, A&Ox3 CARDIOVASCULAR: Regular rate and rhythm without murmurs, gallops, or rubs. RESPIRATORY: Breath sounds equal bilaterally. No accessory muscle use. GASTROINTESTINAL: Abdomen soft, non-tender, nondistended. MUSCULOSKELETAL: No cyanosis, or edema. SKIN: Warm and dry. NEURO: No focal neurological deficits. Procedures EGD with foreign body removal A/P Problem List: (1) Esophageal dilatation ICD Code: K22.8 - Other specified diseases of esophagus (2) Intractable nausea and vomiting ICD Code: R11.2 - Nausea with vomiting, unspecified (3) HTN (hypertension) ICD Code: I10 - Essential (primary) hypertension Assessment and Plan 52-year-old female admitted secondary to esophageal obstruction/stricture Achalasia Retained food bolus Esophageal stricture Continue Reglan for nausea Continue Zofran for nausea GI following Plan for myotomy Advance to clear liquid diet Aspiration pneumonia. Improved Acute respiratory failure. Resolved Off oxygen Improving daily Discontinue Unasyn Incentive spirometry Continue pulmonary toilet Hypertension Continue metoprolol 25 mg p.o. twice daily and clonidine patch Thalassemia follow CBC DVT prophylaxis SCDs on Lovenox Julius Delgado MD October 09, 2017 14:48
[2017-10-09 15:20] LABS: MAGNESIUM 2.2 MG/DL (1.5-2.5); PHOSPHORUS 2.6 MG/DL (2.5-4.9)
[2017-10-09] MEDS ORDERED: POTASSIUM CHLORIDE 20 MEQ CONTROLLED RELEASE TAB PO ONE (16:45)
[2017-10-09] MEDS ORDERED: POVIDONE IODINE 5% (ANTISEPSIS KIT) 4 APPLICATIONS EACH NARE PRN (19:30)
[2017-10-09] MEDS ORDERED: SODIUM CHLORID 0.9% 500 ML IV PRN (19:30)
[2017-10-09] MEDS ORDERED: LACTATED RINGER'S 1000 ML IV PRN (19:30)
[2017-10-09] MEDS ORDERED: METOPROLOL TARTRATE 25 MG TAB PO PRN (19:30)
[2017-10-09] MEDS ORDERED: CHLORHEXIDINE GLUCONATE 2 % 1 PACK (2 CLOTHS) TOPICAL PRN (19:30)
[2017-10-09] MEDS: ENOXAPARIN SODIUM 40 MG/0.4 ML SYRINGE SQ SCH (21:00)
[2017-10-09] MEDS: MUPIROCIN 2% OINT 1 APPLIC/GM SYR EACH NARE SCH (21:11)
[2017-10-09] MEDS: REMOVE OLD LIDOCAINE PATCH T-DERMAL SCH (21:12)
[2017-10-10] VITALS (7 sets, daily range): BP systolic 107–159; BP diastolic 53–86; PULSE 52–58; RESP 16–20; TEMP 97.6–98.1; O2SAT 95–98
[2017-10-10] MEDS: SODIUM CHLOR 0.9% 1000 ML INJ 1,000 ML IV SCH ×2 (05:27→09:25)
[2017-10-10] MEDS: CHLORHEXIDINE 0.12% (ORAL KIT) 15 ML CUP MT SCH ×2 (08:58→21:09)
--- NOTE | 2017-10-10 09:11 | HHI.PR ---
Subjective Remarks Follow-up achalasia. Awaiting surgery. Discussed with nursing Objective Vitals Vital Signs Date Time Temp Pulse Resp B/P (MAP) Pulse Ox O2 Delivery O2 Flow Rate FiO2 10/10/17 08:02 97.7 52 20 152/83 (106) 96 10/10/17 04:00 98.1 58 18 153/72 (99) 96 10/10/17 00:00 97.7 54 18 159/76 (103) 96 10/10/17 00:00 54 10/09/17 20:00 98.0 60 18 186/81 (116) 94 10/09/17 20:00 69 10/09/17 18:14 56 10/09/17 16:20 97.9 49 20 161/84 (109) 98 10/09/17 13:06 54 10/09/17 12:41 98.2 56 20 156/88 (110) 96 I/O 10/09/17 10/09/17 10/09/17 10/10/17 10/10/17 10/10/17 07:00 15:00 23:00 07:00 15:00 23:00 Intake Total 1680 ml 1000 ml Balance 1680 ml 1000 ml Intake Oral 1680 ml IV Total 1000 ml # Voids 4 3 # Bowel Movements 1 Result Diagram: 10/09/17 0654 10/09/17 0654 Imaging Last Impressions Chest X-Ray 10/06/17 0000 Signed Impressions: Service Date/Time: Friday, October 06, 2017 13:14 - CONCLUSION: Persistent airspace disease with minimal improvement. Viktor Hernandez MD FACR Chest CT 10/02/17 0000 Signed Impressions: Service Date/Time: Monday, October 02, 2017 10:49 - CONCLUSION: Interval development of left lower lobe consolidation and compressive atelectasis/infiltrate at the right intrathoracic mid esophagus. There is also development of small bilateral pleural effusions and mild ascites. Speedy aBker MD Brain MRI 10/02/17 0000 Signed Impressions: Service Date/Time: Monday, October 02, 2017 10:15 - CONCLUSION: 1. Negative MRI of the brain with and without contrast. 2. Right maxillary and ethmoid sinus disease. Speedy Baker MD Carotid Artery Ultrasound 09/30/17 0000 Signed Impressions: Service Date/Time: Saturday, September 30, 2017 22:29 - CONCLUSION: Normal hemodynamic profile bilateral carotids. The Speedy Baker MD Head CT [id number] Signed Impressions: Service Date/Time: Friday, September 29, 2017 21:17 - CONCLUSION: 1. No acute intracranial abnormality. 2. Right side predominant paranasal sinus disease. Thierry Bui MD Objective Remarks GENERAL: NAD, A&Ox3 CARDIOVASCULAR: Regular rate and rhythm without murmurs, gallops, or rubs. RESPIRATORY: Breath sounds equal bilaterally. No accessory muscle use. GASTROINTESTINAL: Abdomen soft, non-tender, nondistended. MUSCULOSKELETAL: No cyanosis, or edema. SKIN: Warm and dry. NEURO: No focal neurological deficits. Procedures EGD with foreign body removal A/P Problem List: (1) Esophageal dilatation ICD Code: K22.8 - Other specified diseases of esophagus (2) Intractable nausea and vomiting ICD Code: R11.2 - Nausea with vomiting, unspecified (3) HTN (hypertension) ICD Code: I10 - Essential (primary) hypertension Assessment and Plan 52-year-old female admitted secondary to esophageal obstruction/stricture Achalasia Retained food bolus Esophageal stricture Continue Reglan for nausea Continue Zofran for nausea GI following Plan for myotomy today Advance to clear liquid diet currently n.p.o. Aspiration pneumonia. Improved Acute respiratory failure. Resolved Off oxygen Improving daily Discontinue Unasyn Incentive spirometry Continue pulmonary toilet Hypertension Continue metoprolol 25 mg p.o. twice daily and clonidine patch Thalassemia follow CBC DVT prophylaxis SCDs on Lovenox currently on hold Julius Delgado MD October 10, 2017 09:11
[2017-10-10] MEDS: SODIUM CHLORIDE 0.9% FLUSH 10 ML FLUSH IV FLUSH SCH ×2 (09:17→21:02)
[2017-10-10] MEDS: FAMOTIDINE 20 MG TAB PO SCH ×2 (09:17→21:06)
[2017-10-10] MEDS: DOCUSATE SODIUM 50 MG/SENNA 8.6 MG TAB PO SCH ×2 (09:17→21:00)
[2017-10-10] MEDS: METOPROLOL TARTRATE 25 MG TAB PO SCH ×2 (09:17→21:00)
[2017-10-10] MEDS: MUPIROCIN 2% OINT 1 APPLIC/GM SYR EACH NARE SCH ×2 (09:17→21:05)
[2017-10-10] MEDS: LIDOCAINE HCL 5% PATCH T-DERMAL SCH (09:18)
[2017-10-10] MEDS ORDERED: BUPIVACAINE/EPINEPHRINE 0.5% PF 30 ML VIAL ONE (15:46)
[2017-10-10] MEDS ORDERED: ceFAZolin 2 GM PREMIX 50 ML ONE (16:13)
--- NOTE | 2017-10-10 17:59 | PD.OP ---
cc: Kevyn Trinh MD Operative Report Date of Surgery: October 10, 2017 Preoperative Diagnosis: esophageal dilation, achalasia Postoperative Diagnosis: same Procedure: Laparoscopic Heller myotomy with anterior partial fundoplication Anesthesia: General Surgeon: Kevyn Trinh Banquet Supervisor(s): [place] Vernon Operation and Findings: This procedure was assisted by my colleague and board-certified surgeon. The assistance of a board certified surgeon was necessary given this relatively rarely performed operative procedure to ensure and enhance the efficiency of the surgery as well as to provide increased safety in the completion of the operation. Laparoscopic Heller myotomy is relatively uncommon surgery and providing assistance as a board certified surgeon was necessary. Indications for procedure Unfortunate 52-year-old woman with long history of dilated esophagus admitted with aspiration. She had to be ventilated due to the severity of the injury to her lungs. She is recovered from that insult and is undergone gastroenterologic evaluation with findings of distal esophageal narrowing consistent with achalasia. Surgical options were discussed and the patient wished to proceed. Intraoperative findings Successful division of the muscular layers 3 cm onto the gastric wall in 6-8 cm onto the esophagus. No apparent mucosal injury to the stomach or esophagus. Anterior fundoplication performed. Estimated blood loss Less than 5 mL. Description of procedure in detail The patient was identified as Anna Briseno taken to the operating room placed in a supine position. Sequential compression devices were placed on bilateral lower extremities. Following induction of adequate general endotracheal anesthesia the patient's abdomen was prepped and draped in usual sterile fashion with Betadine. A timeout procedure was performed. Following completion timeout procedure everyone's satisfaction within the room the abdomen was infiltrated with local anesthetic and the proposed incision site about 4 cm superior to the umbilicus in the midline. Dissection continued posteriorly over the midline fascia which was incised with a scalpel and entering the peritoneal cavity facilitative the surgeon's finger. The applied medical balloon Solomon was placed in the peritoneal cavity its balloon inflated to 2 insufflation to level 50 mmHg ensued. Patient was placed in a steep reverse Trendelenburg position. For upper abdominal 5 mm trochars were placed into the peritoneal cavity under direct laparoscopic view after incision the skin with a scalpel. Along efrain flex liver retractor was placed beneath left lower lobe the liver retracting it anteriorly it was held position of the robot arm. Tension was turned to opening the gastrohepatic ligament was performed with the harmonic scalpel. A small arterial branch to the lesser curve the stomach was preserved. Right side diaphragmatic crura was identified.. Peritoneum was released from the diaphragmatic crura and then anteriorly across the diaphragm muscle. Attention was then turned to taking down the short gastric vessels along the superior aspect of the greater curvature of the stomach. This was performed safely with a harmonic scalpel allowing for defecation of the left side diaphragmatic crura. A posterior window was developed to the esophagus including the posterior vagus nerve which was identified and uninjured. The efrain flex shrestha's hook retractor was placed through the posterior window allowing for retraction of the GE junction inferiorly. Esophagus was mobilized using the harmonic scalpel and blunt dissection. Right side pleura was adherent and a small opening in the pleura occurred. There was no untoward event as far as the patient's hemodynamic stability. The orogastric tube which have been placed by anesthesia was were withdrawn and a 48 [place] esophageal bougie was able to be passed safely through the esophagus into the stomach. Attention was then turned to the myotomy procedure. Using the harmonic scalpel over the esophageal bougie myotomy was started on the stomach about 3 cm distal to the gastroesophageal junction. Care was taken to dissect the serosa and muscular layers of the stomach off of the mucosa and submucosa. The mucosa and submucosa were preserved. As across the gastroesophageal junction longitudinal fibers of the esophagus were divided with the harmonic scalpel. Careful blunt dissection with the active blade of the harmonic scalpel was then performed to lift the circular muscular fibers off the submucosa of the esophagus and they were divided. The shrestha's hook retractor was removed and gentle traction was then performed on the divided muscle on either side of the esophagus so that the myotomy could be completed to a distance 6-8 cm proximal to the GE junction. Once this had been completed a photograph was taken. Careful evaluation demonstrated no evidence of mucosal injury. A anterior partial fundoplication was then performed. This of the stomach which had previously been mobilized was then brought across the myotomy sutured using a 0 Ethibond suture and the suture hospital clinic assistant device suturing the fundus of the stomach to the divided muscular layers of the esophagus and then to the right side diaphragmatic crura. 3 separate sutures were placed to perform the anterior fundoplication. Additionally 2-0 Ethibond sutures were used to reapproximate the divided esophageal muscular layers to the left side diaphragmatic crura. Photographs were taken of the completed fundoplication. Remaining local anesthetic was placed in the operative field. The retractor beneath the left lower lobe the liver was removed and there was no evidence of liver injury. Trochars removed under direct visualization there was no evidence of bleeding from trocar sites. The abdomen was actively desufflated through the supraumbilical port which was then removed. Supraumbilical fascial incision was closed with interrupted 0 Vicryl sutures. Port site skin incisions were approximated for Monocryl subcuticular sutures and dressings were applied with Mastisol and half-inch brown Steri-Strips. Patient tolerated the procedure without apparent complication. Sponge needle and instrument counts were correct at the end of the case. The patient was transported to PACU in stable condition. Kevyn Trinh MD October 10, 2017 17:59
[2017-10-10] MEDS ORDERED: ACETAMINOPHEN/HYDROcodone 325 MG/5 MG TAB PO PRN ×2 (18:00)
[2017-10-10] MEDS ORDERED: Post-op Orders (for Pharmacy) XX ONE (18:00)
[2017-10-10] MEDS ORDERED: MIDAZOLAM HCL 2 MG/2 ML VIAL ONE (18:06)
[2017-10-10] MEDS ORDERED: *morphine SULFATE 8 MG/ML PERIprocedure ONLY ONE ×2 (18:16→18:25)
[2017-10-10] MEDS ORDERED: *ONDANSETRON 4 MG VIAL PERIprocedural Use ONLY ONE (18:16)
[2017-10-10] MEDS ORDERED: ACETAMINOPHEN 1000 MG/100 ML 100 ML IV ONE (18:44)
[2017-10-10] MEDS ORDERED: DO NOT ADM ANY ANTICOAGULANT DRUGS PRN (19:15)
[2017-10-10] MEDS: LACTATED RINGER'S 1000 ML INJ 1,000 ML IV SCH (20:59)
[2017-10-10] MEDS: REMOVE OLD LIDOCAINE PATCH T-DERMAL SCH (21:01)
[2017-10-11] VITALS (7 sets, daily range): BP systolic 124–162; BP diastolic 66–86; PULSE 52–66; RESP 16–20; TEMP 97.3–98.6; O2SAT 95–97
[2017-10-11] MEDS: LACTATED RINGER'S 1000 ML INJ 1,000 ML IV SCH ×2 (04:00→14:30)
--- NOTE | 2017-10-11 08:41 | HHI.PR ---
Subjective Remarks Follow-up achalasia. Tolerated surgical procedure and diet. Objective Vitals Vital Signs Date Time Temp Pulse Resp B/P (MAP) Pulse Ox O2 Delivery O2 Flow Rate FiO2 10/11/17 08:29 97.8 60 20 132/66 (88) 97 10/11/17 04:53 52 10/11/17 04:00 98.6 62 16 162/86 (111) 96 10/11/17 00:00 98.6 61 16 145/75 (98) 95 10/10/17 22:04 18 10/10/17 20:00 53 10/10/17 20:00 97.6 56 16 107/53 (71) 97 10/10/17 19:21 95 Nasal Cannula 3.00 10/10/17 18:45 56 17 114/64 (81) 95 Nasal Cannula 3 10/10/17 18:30 55 22 120/65 (83) 95 Nasal Cannula 3 10/10/17 18:15 69 23 127/62 (83) 97 Nasal Cannula 3 10/10/17 17:58 97.8 93 24 140/77 (98) 95 Nasal Cannula 3 10/10/17 12:15 97.7 52 20 159/86 (110) 98 10/10/17 09:31 53 I/O 10/10/17 10/10/17 10/10/17 10/11/17 10/11/17 10/11/17 07:00 15:00 23:00 07:00 15:00 23:00 Intake Total 950 ml 989 ml Output Total 10 ml Balance 940 ml 989 ml IV Total 100 ml 989 ml Other 850 ml Estimated Blood Loss 10 ml # Voids 3 2 2 Result Diagram: 10/09/17 0654 10/09/17 0654 Imaging Last Impressions Chest X-Ray 10/06/17 0000 Signed Impressions: Service Date/Time: Friday, October 06, 2017 13:14 - CONCLUSION: Persistent airspace disease with minimal improvement. Viktor Hernandez MD FACR Chest CT 10/02/17 0000 Signed Impressions: Service Date/Time: Monday, October 02, 2017 10:49 - CONCLUSION: Interval development of left lower lobe consolidation and compressive atelectasis/infiltrate at the right intrathoracic mid esophagus. There is also development of small bilateral pleural effusions and mild ascites. Speedy Baker MD Brain MRI 10/02/17 0000 Signed Impressions: Service Date/Time: Monday, October 02, 2017 10:15 - CONCLUSION: 1. Negative MRI of the brain with and without contrast. 2. Right maxillary and ethmoid sinus disease. Speedy Baker MD Carotid Artery Ultrasound 09/30/17 0000 Signed Impressions: Service Date/Time: Saturday, September 30, 2017 22:29 - CONCLUSION: Normal hemodynamic profile bilateral carotids. The Speedy Baker MD Head CT 09/29/175 Signed Impressions: Service Date/Time: Friday, September 29, 2017 21:17 - CONCLUSION: 1. No acute intracranial abnormality. 2. Right side predominant paranasal sinus disease. Thierry Bui MD Objective Remarks GENERAL: NAD, A&Ox3 CARDIOVASCULAR: Regular rate and rhythm without murmurs, gallops, or rubs. RESPIRATORY: Breath sounds equal bilaterally. No accessory muscle use. GASTROINTESTINAL: Abdomen soft, non-tender, nondistended. MUSCULOSKELETAL: No cyanosis, or edema. SKIN: Warm and dry. NEURO: No focal neurological deficits. Procedures EGD with foreign body removal Laparoscopic Heller myotomy with anterior partial fundoplication A/P Problem List: (1) Esophageal dilatation ICD Code: K22.8 - Other specified diseases of esophagus (2) Intractable nausea and vomiting ICD Code: R11.2 - Nausea with vomiting, unspecified (3) HTN (hypertension) ICD Code: I10 - Essential (primary) hypertension Assessment and Plan 52-year-old female admitted secondary to esophageal obstruction/stricture Achalasia. Stable post sx Retained food bolus Esophageal stricture Continue Reglan for nausea Continue Zofran for nausea GI following Laparoscopic Heller myotomy with anterior partial fundoplication Currently on full liquid diet advance per general surgery Aspiration pneumonia. Improved Acute respiratory failure. Resolved Off oxygen Improving daily Discontinue Unasyn Incentive spirometry Continue pulmonary toilet Hypertension Continue metoprolol 25 mg p.o. twice daily dc clonidine patch continue to monitor Thalassemia follow CBC DVT prophylaxis SCDs on Lovenox Discharge Planning Discharge per general surgery Julius Delgado MD October 11, 2017 08:41
[2017-10-11] MEDS ORDERED: METO25TA3 PO (08:46)
[2017-10-11] MEDS ORDERED: BACTOIN EACH NARE (08:46)
[2017-10-11] MEDS ORDERED: HYDR-3516 PO (08:46)
--- NOTE | 2017-10-11 08:46 | HHI.DCPOC ---
Discharge Care Plan Diagnosis: (1) HTN (hypertension) (2) Obstruction of esophagus Your Health Problems Are: Difficulty with ADL Exercise Tolerance Goals to Promote Your Health * To prevent worsening of your condition and complications * To maintain your health at the optimal level Directions to Meet Your Goals Take your medications as prescribed Follow your dietary instruction Follow activity as directed Keep your appointments as scheduled Take your immunizations and boosters as scheduled If your symptoms worsen call your PCP, if no PCP go to Urgent Care Center or Emergency Room Smoking is Dangerous to Your Health. Avoid second hand smoke Call the 24-hour hour crisis hotline for domestic abuse at Julius Delgado MD October 11, 2017 08:46
[2017-10-11] MEDS: LIDOCAINE HCL 5% PATCH T-DERMAL SCH (09:33)
[2017-10-11] MEDS: METOPROLOL TARTRATE 25 MG TAB PO SCH (09:33)
[2017-10-11] MEDS: FAMOTIDINE 20 MG TAB PO SCH (09:34)
[2017-10-11] MEDS: CHLORHEXIDINE 0.12% (ORAL KIT) 15 ML CUP MT SCH (09:34)
[2017-10-11] MEDS: SODIUM CHLORIDE 0.9% FLUSH 10 ML FLUSH IV FLUSH SCH (09:34)
[2017-10-11] MEDS: MUPIROCIN 2% OINT 1 APPLIC/GM SYR EACH NARE SCH (09:34)
[2017-10-11] MEDS: DOCUSATE SODIUM 50 MG/SENNA 8.6 MG TAB PO SCH (09:34)
--- NOTE | 2017-10-11 12:34 | HHI.PR ---
Subjective Subjective Notes The patient denies any pain. She has been up walking in her room. She is tolerating a liquid diet without any reflux or regurgitation. This is much improved. She is very pleased. She desires discharge home. Objective Vitals/I&O Vital Signs Date Time Temp Pulse Resp B/P (MAP) Pulse Ox O2 Delivery O2 Flow Rate FiO2 10/11/17 12:17 97.3 66 20 124/67 (86) 97 10/10/17 19:21 Nasal Cannula 3.00 Labs Date/Time Source Procedure Growth Status 10/02/17 17:00 Sputum Endotracheal Gram Stain - Final Complete 10/02/17 17:00 Sputum Endotracheal Sputum Culture - Final LIGHT GROWTH NORMAL RESPIRATORY LANE Complete Abdomen: Non-distended, Non-tender, Other (Incision sites are all healing well. Steri-Strips are in place. There is no erythema or drainage.) Extremities: No edema, Perfused A/P Assessment and Plan Postop day 1 status post laparoscopic Heller myotomy with anterior partial fundoplication. The patient is doing extremely well. She is tolerating oral liquid diet without any swallowing issues, reflux, or regurgitation. Her surgical outcome at this point is ideal. She is eligible for discharge from a general surgery standpoint. I recommended she sit upright for any oral intake. He should eat and drink slowly. She should follow-up with us in the office in 1-2 weeks. She does not require any pain medications. I recommended extra strength Tylenol should she need anything. She is comfortable with this plan of care. Kevyn Trinh MD October 11, 2017 12:33
--- NOTE | 2017-10-11 15:57 | HHI.DS ---
Discharge Summary Admission Date Sep 30, 2017 at 14:12 Discharge Date: October 11, 2017 Admitting Diagnosis Possible esophageal obstruction versus GE mass (1) Esophageal dilatation ICD Code: K22.8 - Other specified diseases of esophagus Diagnosis: Principal (2) Intractable nausea and vomiting ICD Code: R11.2 - Nausea with vomiting, unspecified Diagnosis: Principal (3) HTN (hypertension) ICD Code: I10 - Essential (primary) hypertension Diagnosis: Principal Procedures EGD with foreign body removal Laparoscopic Heller myotomy with anterior partial fundoplication Brief History - From Admission This is a 52-year-old female with a PMH of Thalassemia and Achalasia who presented to ER with complaints of right-sided neck pain and right-sided chest wall pain for approx 1wk. Also notes associated nausea/vomiting. States she has been doing some house cleaning and thinks she may have inhaled chemicals which caused her nausea/vomiting. Pain has been intermittent, moderate to severe, 6-7/10, occasional radiation to back. Denies fever, chills, chest pain or SOB. On arrival, BP 171/85, HR 85, O2 sat 100% on RA, Afebrile. CBC essentially unremarkable. Chemistry unremarkable except for GFR 63. INR 1.1. CT Head with no acute findings. CXR with large mass or area of consolidation on the right, recommendation for CT. CT Chest with large hollow structure in posterior mediastinum and medial right chest containing mixture of gas and particulate matter probably representing markedly distended esophagus, possible mass at level of GE junction. Reports no h/o similar findings. States she has previous h/o achalasia, however no intervention. Does not follow w/ GI doc. CBC/BMP: 10/09/17 0654 10/09/17 0654 Significant Findings Laboratory Tests Test 10/09/17 06:54 Red Blood Count 5.43 MIL/MM3 (4.00-5.30) Mean Corpuscular Volume 71.0 FL (80.0-100.0) Mean Corpuscular Hemoglobin 22.4 PG (27.0-34.0) Mean Corpuscular Hemoglobin Concent 31.5 % (32.0-36.0) Monocytes (%) (Auto) 9.8 % (0.0-8.0) Eosinophils (%) (Auto) 5.1 % (0.0-4.0) Platelet Morphology Comment ENLARGED (NORMAL) Blood Urea Nitrogen 6 MG/DL (7-18) Albumin 3.3 GM/DL (3.4-5.0) Potassium Level 3.3 MEQ/L (3.5-5.1) Estimat Glomerular Filtration Rate 76 ML/MIN (>89) Imaging Last Impressions Chest X-Ray 10/06/17 0000 Signed Impressions: Service Date/Time: Friday, October 06, 2017 13:14 - CONCLUSION: Persistent airspace disease with minimal improvement. Viktor Hernandez MD FACR Chest CT 10/02/17 0000 Signed Impressions: Service Date/Time: Monday, October 02, 2017 10:49 - CONCLUSION: Interval development of left lower lobe consolidation and compressive atelectasis/infiltrate at the right intrathoracic mid esophagus. There is also development of small bilateral pleural effusions and mild ascites. Speedy Baker MD Brain MRI 10/02/17 0000 Signed Impressions: Service Date/Time: Monday, October 02, 2017 10:15 - CONCLUSION: 1. Negative MRI of the brain with and without contrast. 2. Right maxillary and ethmoid sinus disease. Speedy Baker MD Carotid Artery Ultrasound 09/30/17 0000 Signed Impressions: Service Date/Time: Saturday, September 30, 2017 22:29 - CONCLUSION: Normal hemodynamic profile bilateral carotids. The Speedy Baker MD Head CT [id number]/[id number] Signed Impressions: Service Date/Time: Friday, September 29, 2017 21:17 - CONCLUSION: 1. No acute intracranial abnormality. 2. Right side predominant paranasal sinus disease. Thierry Bui MD PE at Discharge GENERAL: NAD, A&Ox3 CARDIOVASCULAR: Regular rate and rhythm without murmurs, gallops, or rubs. RESPIRATORY: Breath sounds equal bilaterally. No accessory muscle use. GASTROINTESTINAL: Abdomen soft, non-tender, nondistended. MUSCULOSKELETAL: No cyanosis, or edema. SKIN: Warm and dry. NEURO: No focal neurological deficits. Hospital Course 52-year-old female admitted secondary to esophageal obstruction/stricture Achalasia. Stable post sx Retained food bolus Esophageal stricture Continue Reglan for nausea Continue Zofran for nausea GI following Laparoscopic Heller myotomy with anterior partial fundoplication Currently on full liquid diet advance per general surgery Aspiration pneumonia. Improved Acute respiratory failure. Resolved Off oxygen Improving daily Discontinue Unasyn Incentive spirometry Continue pulmonary toilet Hypertension Continue metoprolol 25 mg p.o. twice daily dc clonidine patch continue to monitor Thalassemia follow CBC DVT prophylaxis SCDs on Lovenox Pt Condition on Discharge: Stable Discharge Disposition: Discharge Home Discharge Time: > 30 minutes Discharge Instructions DIET: Follow Instructions for: Full Liquid Diet Activities you can perform: Regular-No Restrictions Activities to Avoid: Driving Follow up Referrals: PCP Follow-up - 1 Week Surgical - 1 Week New Medications: Metoprolol Tartrate (Metoprolol Tartrate) 25 Mg Tab 25 MG PO Q12HR for Blood Pressure Management, #60 TAB Mupirocin Nasal Oint (Bactroban Nasal Oint) 2% Oint 1 APPLIC EACH NARE BID for Infection, #1 TUBE dc 10/16 Single-use tubes. Julius Delgado MD October 11, 2017 15:57
[2017-10-11] MEDS ORDERED: ENOXAPARIN SODIUM 40 MG/0.4 ML SYRINGE SQ SCH (17:00)
== END 2017-10-11 19:48 | disposition home or self-care (01) | DRG 326 ==
LOC: NEPC 20:13 → NEDA 23:55 → NEPFCDU 09-30 01:15 → OBSVTOIN 09-30 14:12 → HIMN 09-30 17:21 → N05B 10-04 09:56
PROVIDERS: ADMIT Internal Medicine; ATTEND Internal Medicine
PROC: 5A1945Z Respiratory Ventilation, 24-96 Consecutive Hours (ICD-10-PCS; 2017-09-30)
PROC: 0DC58ZZ Extirpation of Matter from Esophagus, Via Natural or Artificial Opening Endoscopic (ICD-10-PCS; 2017-09-30)
PROC: 0BH17EZ Insertion of Endotracheal Airway into Trachea, Via Natural or Artificial Opening (ICD-10-PCS; 2017-09-30)
PROC: 0DC58ZZ Extirpation of Matter from Esophagus, Via Natural or Artificial Opening Endoscopic (ICD-10-PCS; 2017-10-02)
PROC: 0DB68ZX Excision of Stomach, Via Natural or Artificial Opening Endoscopic, Diagnostic (ICD-10-PCS; 2017-10-02)
PROC: 0D844ZZ Division of Esophagogastric Junction, Percutaneous Endoscopic Approach (ICD-10-PCS; principal; 2017-10-10 16:08)
PROC: 0DV44ZZ Restriction of Esophagogastric Junction, Percutaneous Endoscopic Approach (ICD-10-PCS; 2017-10-10 16:08)
DX: T18.128A Food in esophagus causing other injury, initial encounter (principal); J69.0 Pneumonitis due to inhalation of food and vomit; J96.00 Acute respiratory failure, unspecified whether with hypoxia or hypercapnia; T17.820A Food in other parts of respiratory tract causing asphyxiation, initial encounter; K22.2 Esophageal obstruction; K22.0 Achalasia of cardia; R11.2 Nausea with vomiting, unspecified; M62.838 Other muscle spasm; D56.9 Thalassemia, unspecified; I10 Essential (primary) hypertension; M54.2 Cervicalgia; Y83.8 Other surgical procedures as the cause of abnormal reaction of the patient, or of later complication, without mention of misadventure at the time of the procedure; Y82.9 Unspecified medical devices associated with adverse incidents; Y92.234 Operating room of hospital as the place of occurrence of the external cause; R20.0 Anesthesia of skin; Z78.1 Physical restraint status
CPT/HCPCS: 36415; 36600; 70450; 70553; 71045; 71250; 71260; 76937; 80048; 80053; 80061; 82805; 82948; 83036; 83735; 84100; 84443; 84702; 85025; 85027; 85610; 85730; 87070; 87205; 87641; 88305; 88312; 93005; 93880; 94002; 94003; 94150; 94640; 94664; A9579; J0131; J0295; J0330; J0690; J1650; J1885; J2250; J2270; J2360; J2405; J2765; J3010; J3480; J7030; J7120; Q9967

== ENCOUNTER → 2017-11-24 | Outpatient (CLI) | payer SELFPAY ==
[~2017-11-24] MED LIST: BACTOIN EACH NARE; METO25TA3 PO
--- NOTE | 2017-11-24 15:41 | RADRPT ---
EXAM DATE: 11/24/2017 3:23 PM EDT AGE/SEX: 52 years / Female INDICATIONS: Regurgitation of food post fundoplication 1 month ago CLINICAL DATA: This is the patient's initial encounter. Patient reports that signs and symptoms have been present for 1 week and indicates a pain score of 0/10. MEDICAL/SURGICAL HISTORY: . Achalasia . Laparoscopic Heller myotomy with partial fundoplicatio n COMPARISON: No prior exams available for comparison. FLUORO TIME: 1.0 IMAGE COUNT: 15 FINDINGS: There is severe dilatation of the esophagus. No significant peristaltic waves were seen. There is armando ris seen in the distal aspect of the esophagus. The barium does extend through the esophagus into the stomach. Patient does have an impression on the superior left medial aspect of the stomach. The nena ent reports some postsurgical change with a type of Emily procedure performed. This appears smooth a nd would be consistent with postoperative change. CONCLUSION: Dilated esophagus without significant peristalsis. The patient has a history of achalasia. This is be en surgically treated. The distal esophagus does appear debris filled. Postsurgical change of the GE junction region. Contrast does extend through this region. Electronically signed by: Thierry Gonzales MD 11/24/2017 3:40 PM EDT
== END ==
LOC: HRAD 14:17
PROVIDERS: ATTEND Surgery
DX: R11.11 Vomiting without nausea (principal)
CPT/HCPCS: 74230